=== PATIENT | male | born 1965 | race Caucasian/White ===

== ENCOUNTER 2018-04-11 16:31 | Emergency (ER) | payer MEDICARE ==
[2018-04-11 16:48] VITALS: BP 131/79
--- NOTE | 2018-04-11 17:23 | EDM.PDOC ---
ED HPI GENERAL MEDICAL PROBLEM - General Chief Complaint: Fever Stated Complaint: ILLNESS Time Seen by Provider: 04/11/18 17:00 Source of Information: Reports: Patient, Family History Limitations: Reports: No Limitations - History of Present Illness INITIAL COMMENTS - FREE TEXT/NARRATIVE: 52-year-old male undergoing chemotherapy for metastatic pancreatic cancer, was told to be checked if his temperature however rises to over 100.4. He feels completely fine, however he had 2 temperature tests this afternoon that without 100.4 and 100.5. He took some Advil at 3:00 and decided to come in and get checked. He has no cold symptoms, shortness of breath, cough, nausea vomiting, rashes, dysuria or any physical symptoms of infection. He is due for another round of chemotherapy in 2 days. Onset: Unknown/Unsure - Related Data Allergies Allergy/AdvReac Type Severity Reaction Status Date / Time adhesive Allergy Intermediate Rash Verified 04/11/18 16:56 ciprofloxacin [From Cipro] Allergy Rash Verified 04/11/18 16:56 levofloxacin [From Levaquin] Allergy Rash Verified 04/11/18 16:56 oxycodone HCl [From Tylox] Allergy Rash Verified 04/11/18 16:56 Home Meds: Home Meds Atenolol [Tenormin] 50 mg PO DAILY 02/04/13 [History] Cyclobenzaprine HCl [Flexeril] 20 mg PO BEDTIME 02/04/13 [History] Gabapentin [Neurontin] 300 mg PO BID 01/24/18 [History] Ondansetron [Zofran ODT] 4 mg PO Q4H PRN #12 tab.dis 01/25/18 [Rx] Sennosides/Docusate Sodium [Senna-S] 1 each PO BID #60 tablet 01/25/18 [Rx] Loperamide [Imodium] 4 mg PO Q6HR 02/21/18 [History] Prochlorperazine Maleate [Compazine] 10 mg PO Q6H PRN 02/21/18 [History] Loratadine [Claritin] 10 mg PO BEDTIME 03/06/18 [History] Melatonin 20 mg PO BEDTIME 03/06/18 [History] Warfarin [Coumadin] 2.5 mg PO DAILY 03/06/18 [History] Hyoscyamine [Hyomax-SL] 0.125 mg SL Q4H PRN #20 tab.sl 03/08/18 [Rx] Lactobacillus Acidophilus [Acidophilus Lactobacilli] 1 each PO BID #60 capsule 03/08/18 [Rx] Hyoscyamine Sulfate 1 tab PO DAILY 03/12/18 [History] L Acidophil/B Lactis/B Longum [Florajen3] 1 tab PO DAILY 03/12/18 [History] HYDROmorphone [Dilaudid] 8 mg PO Q3H PRN #200 tablet 03/15/18 [Rx] fentaNYL [Duragesic] 12 mcg TD Q72H #5 patch 03/15/18 [Rx] fentaNYL [Duragesic] 25 mg TRDERM Q72H #5 patch.td72 03/15/18 [Rx] Past Medical History HEENT History: Reports: None Cardiovascular History: Reports: Hypertension Gastrointestinal History: Reports: None Other Gastrointestinal History: cancer pancreas and liver, new mass in R small bowel Musculoskeletal History: Reports: Osteoarthritis Neurological History: Reports: Concussion Other Neuro History: TBI Psychiatric History: Reports: Depression Hematologic History: Reports: Anticoagulation Therapy, Blood Transfusion(s) Immunologic History: Reports: Other (See Below) Other Immunologic History: Pancreatic CA with mets. chemo treatment Oncologic (Cancer) History: Reports: Liver, Metastatic, Pancreatic Other Oncologic History: small bowel Dermatologic History: Reports: Other (See Below) Other Dermatologic History: new rash ? from fentanyl patches - Past Surgical History HEENT Surgical History: Reports: Other (See Below) Other HEENT Surgeries/Procedures: metal taken out of eye, deviated septum GI Surgical History: Reports: Hernia, Abdominal, Other (See Below) Other GI Surgeries/Procedures: EXPLORATORY LAP 10 YEARS AGO, SPLENECTOMY AT THAT TIME ALSO Neurological Surgical History: Reports: Spinal Fusion Musculoskeletal Surgical History: Reports: Other (See Below) Other Musculoskeletal Surgeries/Procedures:: RODS IN LOW BACK AND HARDWARE IN RIGHT ANKLE Social & Family History - Family History Family Medical History: Noncontributory - Tobacco Use Smoking Status *Q: Never Smoker Second Hand Smoke Exposure: No - Caffeine Use Caffeine Use: Reports: Soda - Recreational Drug Use Recreational Drug Use: No - Living Situation & Occupation Living situation: Reports: , with Family Occupation: Disabled ED ROS GENERAL - Review of Systems Review Of Systems: See Below Constitutional: Reports: Fever. Denies: Chills, Malaise, Decreased Appetite HEENT: Reports: No Symptoms. Denies: Rhinitis, Throat Pain Respiratory: Denies: Shortness of Breath, Cough GI/Abdominal: Denies: Abdominal Pain, Nausea, Vomiting Skin: Reports: No Symptoms Neurological: Denies: Headache ED EXAM, GENERAL - Physical Exam Exam: See Below Exam Limited By: No Limitations General Appearance: Alert, No Apparent Distress Throat/Mouth: Normal Inspection Head: Atraumatic Neck: No: Lymphadenopathy (R), Lymphadenopathy (L) Respiratory/Chest: No Respiratory Distress, Lungs Clear Cardiovascular: Regular Rate, Rhythm Neurological: Alert, Oriented Psychiatric: Normal Affect, Normal Mood Skin Exam: Warm, Dry Course - Vital Signs Last Recorded V/S: Last Vital Signs Temp 98.4 F 04/11/18 17:03 Pulse 67 04/11/18 17:03 Resp 16 04/11/18 17:03 BP 131/79 04/11/18 17:03 Pulse Ox 98 04/11/18 17:03 - Re-Assessments/Exams Free Text/Narrative Re-Assessment/Exam: 04/12/18 17:38 No evidence of infection, temp is normal at this time. No workup needed Departure - Departure Time of Disposition: 17:54 Disposition: Home, Self-Care 01 Condition: Good Clinical Impression: Pancreatic cancer Qualifiers: Pancreatic malignancy location: unspecified Qualified Code(s): C25.9 - Malignant neoplasm of pancreas, unspecified Fever Qualifiers: Encounter type: initial encounter - Discharge Information Instructions: Fever, Adult, [id number] Referrals: Hema Mcnally MD [Primary Care Provider] - Forms: ED Department Discharge Care Plan Goals: Continue current medications and temperature monitoring. Return at any time if you develop symptoms of illness or persistent fever.
== END 2018-04-11 17:30 | disposition home or self-care (01) ==
LOC: JP.ED 16:31
DX: C25.9 Malignant neoplasm of pancreas, unspecified (principal); R50.81 Fever presenting with conditions classified elsewhere; I10 Essential (primary) hypertension; F32.9 Major depressive disorder, single episode, unspecified; Z88.1 Allergy status to other antibiotic agents; Z88.5 Allergy status to narcotic agent; Z88.8 Allergy status to other drugs, medicaments and biological substances; Z79.899 Other long term (current) drug therapy
CPT/HCPCS: 99282; 99283

== ENCOUNTER 2018-04-12 21:06 | Emergency (ER) | payer MEDICARE ==
[2018-04-12 21:33] VITALS: BP 131/70
--- NOTE | 2018-04-12 21:56 | EDM.PDOC ---
ED HPI GENERAL MEDICAL PROBLEM - General Chief Complaint: Fever Stated Complaint: FEVER Time Seen by Provider: 04/12/18 21:40 Source of Information: Reports: Patient History Limitations: Reports: No Limitations - History of Present Illness INITIAL COMMENTS - FREE TEXT/NARRATIVE: 52-year-old male concerned about a fever. He is getting chemotherapy tomorrow. He has been checking his temperature at home and a few times it is measured 100- 100.5, most of the times normal. He has no symptoms. He just wanted to confirm he did not have a temperature. Onset: Unknown/Unsure - Related Data Allergies Allergy/AdvReac Type Severity Reaction Status Date / Time adhesive Allergy Intermediate Rash Verified 04/12/18 21:30 ciprofloxacin [From Cipro] Allergy Rash Verified 04/12/18 21:30 levofloxacin [From Levaquin] Allergy Rash Verified 04/12/18 21:30 oxycodone HCl [From Tylox] Allergy Rash Verified 04/12/18 21:30 Home Meds: Home Meds Atenolol [Tenormin] 50 mg PO DAILY 02/04/13 [History] Cyclobenzaprine HCl [Flexeril] 20 mg PO BEDTIME 02/04/13 [History] Gabapentin [Neurontin] 300 mg PO BID 01/24/18 [History] Loperamide [Imodium] 4 mg PO Q6HR 02/21/18 [History] Loratadine [Claritin] 10 mg PO BEDTIME 03/06/18 [History] Melatonin 20 mg PO BEDTIME 03/06/18 [History] Warfarin [Coumadin] 2.5 mg PO DAILY 03/06/18 [History] Hyoscyamine [Hyomax-SL] 0.125 mg SL Q4H PRN #20 tab.sl 03/08/18 [Rx] Lactobacillus Acidophilus [Acidophilus Lactobacilli] 1 each PO BID #60 capsule 03/08/18 [Rx] Hyoscyamine Sulfate 1 tab PO DAILY 03/12/18 [History] HYDROmorphone [Dilaudid] 8 mg PO Q3H PRN #200 tablet 03/15/18 [Rx] fentaNYL [Duragesic] 12 mcg TD Q72H #5 patch 03/15/18 [Rx] fentaNYL [Duragesic] 25 mg TRDERM Q72H #5 patch.td72 03/15/18 [Rx] Past Medical History HEENT History: Reports: None Cardiovascular History: Reports: Hypertension Gastrointestinal History: Reports: None Other Gastrointestinal History: cancer pancreas and liver, new mass in R small bowel Musculoskeletal History: Reports: Osteoarthritis Neurological History: Reports: Concussion Other Neuro History: TBI Psychiatric History: Reports: Depression Hematologic History: Reports: Anticoagulation Therapy, Blood Transfusion(s) Immunologic History: Reports: Other (See Below) Other Immunologic History: Pancreatic CA with mets. chemo treatment Oncologic (Cancer) History: Reports: Liver, Metastatic, Pancreatic Other Oncologic History: small bowel Dermatologic History: Reports: Other (See Below) Other Dermatologic History: new rash ? from fentanyl patches - Past Surgical History HEENT Surgical History: Reports: Other (See Below) Other HEENT Surgeries/Procedures: metal taken out of eye, deviated septum GI Surgical History: Reports: Hernia, Abdominal, Other (See Below) Other GI Surgeries/Procedures: EXPLORATORY LAP 10 YEARS AGO, SPLENECTOMY AT THAT TIME ALSO Neurological Surgical History: Reports: Spinal Fusion Musculoskeletal Surgical History: Reports: Other (See Below) Other Musculoskeletal Surgeries/Procedures:: RODS IN LOW BACK AND HARDWARE IN RIGHT ANKLE Social & Family History - Family History Family Medical History: Noncontributory - Tobacco Use Smoking Status *Q: Never Smoker Second Hand Smoke Exposure: No - Caffeine Use Caffeine Use: Reports: Soda - Recreational Drug Use Recreational Drug Use: No - Living Situation & Occupation Living situation: Reports: , with Family Occupation: Disabled ED ROS GENERAL - Review of Systems Review Of Systems: See Below Constitutional: Reports: Fever. Denies: Chills, Malaise, Decreased Appetite Respiratory: Denies: Shortness of Breath, Cough Cardiovascular: Denies: Chest Pain GI/Abdominal: Denies: Abdominal Pain, Nausea, Vomiting Skin: Denies: Rash Neurological: Reports: No Symptoms Psychiatric: Reports: Anxiety ED EXAM, GENERAL - Physical Exam Exam: See Below Exam Limited By: No Limitations General Appearance: Alert, No Apparent Distress Throat/Mouth: Normal Inspection Respiratory/Chest: No Respiratory Distress, Lungs Clear GI/Abdominal: Non-Tender Neurological: Alert, Oriented Psychiatric: Normal Affect, Normal Mood Skin Exam: Warm, Dry Course - Vital Signs Last Recorded V/S: Last Vital Signs Temp 97.2 F 04/12/18 21:34 Pulse 72 04/12/18 21:34 Resp 18 04/12/18 21:34 BP 131/70 04/12/18 21:34 Pulse Ox 100 04/12/18 21:34 - Re-Assessments/Exams Free Text/Narrative Re-Assessment/Exam: 04/13/18 01:01 Patient was reassured that at this time he is not running a temperature and he has no symptoms. No treatment or workup is needed and he can go to get his chemotherapy tomorrow morning as planned. Departure - Departure Time of Disposition: 22:00 Disposition: Home, Self-Care 01 Condition: Good Clinical Impression: Pancreatic carcinoma metastatic to liver - Discharge Information Instructions: Fever, Adult, [id number] Referrals: Hema Mcnally MD [Primary Care Provider] - Forms: ED Department Discharge Care Plan Goals: Try to get rest tonight, recheck your temperature if you develop chills or illness, and return if reevaluation is needed. Otherwise keep your appointment tomorrow morning.
== END 2018-04-12 22:00 | disposition home or self-care (01) ==
LOC: JP.ED 21:06
DX: C25.9 Malignant neoplasm of pancreas, unspecified (principal); C78.7 Secondary malignant neoplasm of liver and intrahepatic bile duct; I10 Essential (primary) hypertension; Z88.1 Allergy status to other antibiotic agents; Z88.8 Allergy status to other drugs, medicaments and biological substances; Z79.899 Other long term (current) drug therapy; Z79.01 Long term (current) use of anticoagulants
CPT/HCPCS: 99283

== ENCOUNTER 2018-04-18 16:10 | Emergency (ER) | payer MEDICARE ==
--- NOTE | 2018-04-18 18:31 | EDM.PDOC ---
ED HPI GENERAL MEDICAL PROBLEM - General Chief Complaint: Genitourinary Problem Stated Complaint: PAIN CANCER PATIENT Time Seen by Provider: 04/18/18 18:20 Source of Information: Reports: Patient, Family, RN Notes Reviewed History Limitations: Reports: No Limitations - History of Present Illness INITIAL COMMENTS - FREE TEXT/NARRATIVE: 52-year-old gentleman presents emergency department today complaint of fever, he has a known history of pancreatic cancer currently undergoing chemotherapy, was at the infusion center today did develop a fever was sent to the emergency department for further evaluation. At this time he has no new complaints he does have a known history of abdominal pain has had intermittent testicular swelling does get nauseated with the testicular swelling. Right Scrotum Pain Score (Numeric/FACES): 10 - Related Data Allergies Allergy/AdvReac Type Severity Reaction Status Date / Time adhesive Allergy Intermediate Rash Verified 04/12/18 21:30 ciprofloxacin [From Cipro] Allergy Rash Verified 04/12/18 21:30 levofloxacin [From Levaquin] Allergy Rash Verified 04/12/18 21:30 oxycodone HCl [From Tylox] Allergy Rash Verified 04/12/18 21:30 Home Meds: Home Meds Atenolol [Tenormin] 50 mg PO DAILY 02/04/13 [History] Cyclobenzaprine HCl [Flexeril] 20 mg PO BEDTIME 02/04/13 [History] Gabapentin [Neurontin] 300 mg PO BID 01/24/18 [History] Loperamide [Imodium] 4 mg PO Q6HR 02/21/18 [History] Loratadine [Claritin] 10 mg PO BEDTIME 03/06/18 [History] Melatonin 20 mg PO BEDTIME 03/06/18 [History] Warfarin [Coumadin] 2.5 mg PO DAILY 03/06/18 [History] Hyoscyamine [Hyomax-SL] 0.125 mg SL Q4H PRN #20 tab.sl 03/08/18 [Rx] Lactobacillus Acidophilus [Acidophilus Lactobacilli] 1 each PO BID #60 capsule 03/08/18 [Rx] Hyoscyamine Sulfate 1 tab PO DAILY 03/12/18 [History] HYDROmorphone [Dilaudid] 8 mg PO Q3H PRN #200 tablet 03/15/18 [Rx] fentaNYL [Duragesic] 12 mcg TD Q72H #5 patch 03/15/18 [Rx] fentaNYL [Duragesic] 25 mg TRDERM Q72H #5 patch.td72 03/15/18 [Rx] Past Medical History Cardiovascular History: Reports: Hypertension Other Gastrointestinal History: cancer pancreas and liver, new mass in R small bowel Musculoskeletal History: Reports: Osteoarthritis Neurological History: Reports: Concussion Other Neuro History: TBI Psychiatric History: Reports: Depression Hematologic History: Reports: Anticoagulation Therapy, Blood Transfusion(s) Immunologic History: Reports: Other (See Below) Other Immunologic History: Pancreatic CA with mets. chemo treatment Oncologic (Cancer) History: Reports: Liver, Metastatic, Pancreatic Other Oncologic History: small bowel Dermatologic History: Reports: Other (See Below) Other Dermatologic History: new rash ? from fentanyl patches - Infectious Disease History Infectious Disease History: Reports: Chicken Pox - Past Surgical History HEENT Surgical History: Reports: Other (See Below) Other HEENT Surgeries/Procedures: metal taken out of eye, deviated septum GI Surgical History: Reports: Hernia, Abdominal, Other (See Below) Other GI Surgeries/Procedures: EXPLORATORY LAP 10 YEARS AGO, SPLENECTOMY AT THAT TIME ALSO Neurological Surgical History: Reports: Spinal Fusion Musculoskeletal Surgical History: Reports: Other (See Below) Other Musculoskeletal Surgeries/Procedures:: RODS IN LOW BACK AND HARDWARE IN RIGHT ANKLE Social & Family History - Family History Family Medical History: Noncontributory - Tobacco Use Smoking Status *Q: Unknown Ever Smoked - Caffeine Use Caffeine Use: Reports: Soda - Living Situation & Occupation Living situation: Reports: , with Family Occupation: Disabled ED ROS GENERAL - Review of Systems Review Of Systems: See Below Constitutional: Reports: Fever HEENT: Reports: No Symptoms Respiratory: Reports: No Symptoms Cardiovascular: Reports: No Symptoms GI/Abdominal: Reports: Abdominal Pain : Reports: Other (Testicular swelling not new) Musculoskeletal: Reports: No Symptoms Skin: Reports: No Symptoms Neurological: Reports: No Symptoms ED EXAM, GENERAL - Physical Exam Exam: See Below Free Text/Narrative:: General: Male, ill-appearing but not in any distress, alert and oriented x3 HEENT: head is atraumatic normocephalic, eyes pupils equal round reactive to light, sclera clear no conjunctivitis appreciated. Ears tympanic membranes clear and [place]uayo landmarks and light reflex are present bilaterally canals are clear. Nose no septal deviation, nares are clear, no blood present. Mouth mucosa is moist and pink no erythema or exudate noted in soft palate, tongue is midline uvula is midline, dentition is intact. Neck: Supple no thyromegaly no tracheal deviation. Nodes: Cervical nodes subclavicular nodes nontender no palpable lymphadenopathy noted. Lungs: clear to auscultation bilaterally with symmetrical respirations, no adventitious noise appreciated. CV: Regular rate and rhythm S1 and S2 appreciated no murmurs rubs or gallops noted. Abdomen: Soft, nontender, no palpable masses or organomegaly appreciated, no distention no guarding bowel sounds are present, Genitals circumcised male I do not Appreciate any lesions testicular, testicles appear to be be normal size, nontender to the touch:. Neuro: GS 15 Skin: Warm and dry, intact Extremities: No lower extremity edema appreciated, Course - Vital Signs Last Recorded V/S: Last Vital Signs Temp 99.0 F 04/18/18 17:01 Pulse 62 04/18/18 17:01 Resp 16 04/18/18 17:01 BP 126/79 04/18/18 17:01 Pulse Ox 97 04/18/18 17:01 - Orders/Labs/Meds Labs: Laboratory Tests 04/18/18 04/18/18 04/18/18 Range/Units 18:42 18:42 18:42 WBC 2.7 L (4.5-11.0) K/uL RBC 3.44 L (4.30-5.90) M/uL Hgb 10.3 L D (12.0-15.0) g/dL Hct 31.4 L (40.0-54.0) % MCV 91 (80-98) fL MCH 30 (27-31) pg MCHC 33 (32-36) % Plt Count 214 (150-400) K/uL Neut % (Auto) 48 (36-66) % Lymph % (Auto) 37 (24-44) % [place] % (Auto) 9 H (2-6) % Eos % (Auto) 5 H (2-4) % Baso % (Auto) 0 (0-1) % Sodium 132 L (140-148) mmol/L Potassium 4.1 (3.6-5.2) mmol/L Chloride 97 L (100-108) mmol/L Carbon Dioxide 27 (21-32) mmol/L Anion Gap 12.1 (5.0-14.0) mmol/L BUN 14 (7-18) mg/dL Creatinine 0.8 (0.8-1.3) mg/dL Est Cr Clr Drug Dosing 95.26 mL/min Estimated GFR (MDRD) > 60 (>60) Glucose 166 H (74-106) mg/dL Lactic Acid 1.3 (0.4-2.0) mmol/L Calcium 8.5 (8.5-10.1) mg/dL Total Bilirubin 1.0 (0.2-1.0) mg/dL AST 23 (15-37) U/L ALT 24 (12-78) U/L Alkaline Phosphatase 253 H (46-116) U/L Total Protein 6.5 (6.4-8.2) g/dL Albumin 3.0 L (3.4-5.0) g/dL Globulin 3.5 (2.3-3.5) g/dL Albumin/Globulin Ratio 0.9 L (1.2-2.2) Departure - Departure Time of Disposition: 20:30 Disposition: Home, Self-Care 01 Condition: Poor Clinical Impression: Post chemo evaluation - Discharge Information Referrals: Hema Mcnally MD [Primary Care Provider] - Forms: ED Department Discharge Additional Instructions: Continue monitoring her temperature, call return to the emergency department worsening of symptoms keep your regular follow-up appointments - Assessment/Plan Plan: Assessment Acuity = acute Site and laterality = fever complicated in a patient with known history of pancreatic cancer on chemotherapy Etiology = unknown etiology Manifestations = none Location of injury = Home Lab values = WBC low at 2.7 consistent with a leukopenia 48% neutrophils hemoglobin low at 10.3 consistent normochromic anemia sodium low at 132 consistent hyponatremia remainder lab work is unremarkable influenza was negative Plan I did review lab work with him elected to do watchful waiting at this time he is remained afebrile while in the emergency department plan is discharge home he 'll take his temperature at home certainly any fevers or new development of symptoms he will return to the emergency department for reevaluation This note was dictated using [employer] recognition software please call with any questions on syntax or grammar.
[2018-04-18 20:40] VITALS: BP 136/79
== END 2018-04-18 20:40 | disposition home or self-care (01) ==
LOC: JP.ED 16:10
DX: R50.2 Drug induced fever (principal); T45.1X5A Adverse effect of antineoplastic and immunosuppressive drugs, initial encounter; C22.8 Malignant neoplasm of liver, primary, unspecified as to type; C78.89 Secondary malignant neoplasm of other digestive organs; I10 Essential (primary) hypertension; F32.9 Major depressive disorder, single episode, unspecified; Z88.8 Allergy status to other drugs, medicaments and biological substances; Z88.1 Allergy status to other antibiotic agents; Z88.5 Allergy status to narcotic agent; Z79.899 Other long term (current) drug therapy
CPT/HCPCS: 36415; 80053; 83605; 85025; 87804; 87804-59; 99284

== ENCOUNTER 2018-05-03 22:09 | Emergency (ER) | payer MEDICARE ==
[2018-05-03 22:30] VITALS: BP 118/77
--- NOTE | 2018-05-03 22:42 | EDM.PDOC ---
ED HPI GENERAL MEDICAL PROBLEM - General Chief Complaint: Genitourinary Problem Stated Complaint: BLOOD IN URINE Time Seen by Provider: 05/03/18 22:30 Source of Information: Reports: Patient History Limitations: Reports: No Limitations - History of Present Illness INITIAL COMMENTS - FREE TEXT/NARRATIVE: 52-year-old male with metastatic liver and pancreatic cancer was down at [facility] recently and was found that his chemotherapy regimen was not helping. They changed him to a different combination. Wednesday he checked his INR and it was "off the charts", held his Coumadin through the weekend and recheck to yesterday and it was 2.5. He had his normal dose of Coumadin yesterday and today. Tonight he has developed painless hematuria. He is unaware of any metastatic disease in his kidneys or bladder. He has no dysuria, fevers or chills. Onset: Sudden Duration: Hour(s): (Last couple hours) Associated Symptoms: Reports: Other (Chronic abdominal pain). Denies: Fever/ Chills - Related Data Allergies Allergy/AdvReac Type Severity Reaction Status Date / Time adhesive Allergy Intermediate Rash Verified 05/03/18 22:25 ciprofloxacin [From Cipro] Allergy Rash Verified 05/03/18 22:25 levofloxacin [From Levaquin] Allergy Rash Verified 05/03/18 22:25 oxycodone HCl [From Tylox] Allergy Rash Verified 05/03/18 22:25 Home Meds: Home Meds Atenolol [Tenormin] 50 mg PO DAILY 02/04/13 [History] Cyclobenzaprine HCl [Flexeril] 20 mg PO BEDTIME 02/04/13 [History] Gabapentin [Neurontin] 300 mg PO BID 01/24/18 [History] Loperamide [Imodium] 4 mg PO Q6HR 02/21/18 [History] Loratadine [Claritin] 10 mg PO BEDTIME 03/06/18 [History] Melatonin 20 mg PO BEDTIME 03/06/18 [History] Warfarin [Coumadin] 2.5 mg PO DAILY 03/06/18 [History] Hyoscyamine [Hyomax-SL] 0.125 mg SL Q4H PRN #20 tab.sl 03/08/18 [Rx] Lactobacillus Acidophilus [Acidophilus Lactobacilli] 1 each PO BID #60 capsule 03/08/18 [Rx] Hyoscyamine Sulfate 1 tab PO DAILY 03/12/18 [History] HYDROmorphone [Dilaudid] 8 mg PO Q3H PRN #200 tablet 03/15/18 [Rx] fentaNYL [Duragesic] 12 mcg TD Q72H #5 patch 03/15/18 [Rx] fentaNYL [Duragesic] 25 mg TRDERM Q72H #5 patch.td72 03/15/18 [Rx] Past Medical History HEENT History: Reports: None Cardiovascular History: Reports: Hypertension Gastrointestinal History: Reports: None Other Gastrointestinal History: cancer pancreas and liver, new mass in R small bowel Musculoskeletal History: Reports: Osteoarthritis Neurological History: Reports: Concussion Other Neuro History: TBI Psychiatric History: Reports: Depression Hematologic History: Reports: Anticoagulation Therapy, Blood Transfusion(s) Immunologic History: Reports: Other (See Below) Other Immunologic History: Pancreatic CA with mets. chemo treatment Oncologic (Cancer) History: Reports: Liver, Metastatic, Pancreatic Other Oncologic History: small bowel Dermatologic History: Reports: Other (See Below) Other Dermatologic History: new rash ? from fentanyl patches - Infectious Disease History Infectious Disease History: Reports: Chicken Pox - Past Surgical History HEENT Surgical History: Reports: Other (See Below) Other HEENT Surgeries/Procedures: metal taken out of eye, deviated septum GI Surgical History: Reports: Hernia, Abdominal, Other (See Below) Other GI Surgeries/Procedures: EXPLORATORY LAP 10 YEARS AGO, SPLENECTOMY AT THAT TIME ALSO Neurological Surgical History: Reports: Spinal Fusion Musculoskeletal Surgical History: Reports: Other (See Below) Other Musculoskeletal Surgeries/Procedures:: RODS IN LOW BACK AND HARDWARE IN RIGHT ANKLE Social & Family History - Family History Family Medical History: Noncontributory - Tobacco Use Smoking Status *Q: Never Smoker - Caffeine Use Caffeine Use: Reports: None - Recreational Drug Use Recreational Drug Use: No - Living Situation & Occupation Living situation: Reports: , with Family Occupation: Disabled ED ROS GENERAL - Review of Systems Review Of Systems: See Below Constitutional: Denies: Fever, Chills HEENT: Reports: Other (Chronic hoarse voice from chemotherapy) Respiratory: Denies: Shortness of Breath Cardiovascular: Denies: Chest Pain GI/Abdominal: Reports: Abdominal Pain. Denies: Nausea, Vomiting : Denies: Flank Pain, Urinary Retention Skin: Reports: No Symptoms Neurological: Denies: Headache ED EXAM, RENAL/ - Physical Exam Exam: See Below Exam Limited By: No Limitations General Appearance: Alert, No Apparent Distress Head: Atraumatic Respiratory/Chest: No Respiratory Distress, Lungs Clear Cardiovascular: Regular Rate, Rhythm Neurological: Alert, Oriented Skin Exam: Warm, Dry Course - Vital Signs Last Recorded V/S: Last Vital Signs Temp 97.7 F 05/03/18 22:28 Pulse 90 05/03/18 22:28 Resp 16 05/03/18 22:28 BP 118/77 05/03/18 22:28 Pulse Ox 98 05/03/18 22:28 - Orders/Labs/Meds Orders: Active Orders 24 hr Category Date Time Status CULTURE URINE [RM] Stat Lab 05/03/18 23:29 Received Labs: Laboratory Tests 05/03/18 05/03/18 05/03/18 Range/Units 22:49 22:49 23:00 WBC 2.5 L (4.5-11.0) K/uL RBC 2.95 L (4.30-5.90) M/uL Hgb 8.8 L (12.0-15.0) g/dL Hct 27.7 L (40.0-54.0) % MCV 94 (80-98) fL MCH 30 (27-31) pg MCHC 32 (32-36) % Plt Count 254 (150-400) K/uL Neut % (Auto) 64 (36-66) % Lymph % (Auto) 32 (24-44) % [place] % (Auto) 2 (2-6) % Eos % (Auto) 1 L (2-4) % Baso % (Auto) 1 (0-1) % PT 24.2 H (9.5-12.0) sec INR 2.31 H D (0.80-1.20) Urine Color Brown Urine Appearance Turbid Urine pH 6.0 (4.5-8.0) Ur Specific [place] 1.020 (1.008-1.030) Urine Protein 100 H (NEGATIVE) mg/dL Urine Glucose (UA) Normal (NEGATIVE) mg/dL Urine Ketones Negative (NEGATIVE) mg/dL Urine Occult Blood Large (NEGATIVE) Urine Nitrite Positive H (NEGAITVE) Urine Bilirubin Negative (NEGATIVE) Urine Urobilinogen Normal (NORMAL) mg/dL Ur Leukocyte Esterase Moderate (NEGATIVE) Urine RBC Packed H (0-5) Urine WBC 5-10 H (0-5) Ur Epithelial Cells Rare Amorphous Sediment Not seen Urine Bacteria Moderate Urine Mucus Not seen - Re-Assessments/Exams Free Text/Narrative Re-Assessment/Exam: 05/03/18 22:42 An INR and CBC were obtained. 05/03/18 23:30 INR is 2.3, hemoglobin is only 8.8 at this time, it was 10.3 3 weeks ago. This is likely an effect of the chemotherapy. His urine was positive for infection, nitrite positive with moderate bacteria and WBCs. Also packed RBCs. A urine culture was initiated and he was placed on Macrobid 100 mg twice daily and should recheck if his bleeding continues for the next 2-3 days. Departure - Departure Time of Disposition: 23:48 Disposition: Home, Self-Care 01 Condition: Fair Clinical Impression: UTI, Urinary tract infectious disease, Hematuria syndrome Anemia Qualifiers: Anemia type: other cause - Discharge Information Instructions: Urinary Tract Infection, Adult Referrals: Hema Mcnally MD [Primary Care Provider] - Forms: ED Department Discharge Care Plan Goals: Take antibiotic twice daily as prescribed and continue your other medications. Recheck in 2-3 days if hematuria persists, or return sooner if worsening. - My Orders Last 24 Hours: My Active Orders 05/03/18 23:29 CULTURE URINE [RM] Stat - Assessment/Plan Last 24 Hours: My Active Orders 05/03/18 23:29 CULTURE URINE [RM] Stat
== END 2018-05-03 23:45 | disposition home or self-care (01) ==
LOC: JP.ED 22:09
DX: N39.0 Urinary tract infection, site not specified (principal); I10 Essential (primary) hypertension; Z88.8 Allergy status to other drugs, medicaments and biological substances; Z88.1 Allergy status to other antibiotic agents; Z79.899 Other long term (current) drug therapy
CPT/HCPCS: 36415; 81001; 85025; 85610; 87086; 87088; 87186; 99283; 99284

== ENCOUNTER 2018-05-08 16:58 | Inpatient (IN) | payer MEDICARE ==
[2018-05-08] MEDS ORDERED: Sodium Chloride 0.9% 10 ML Syringe FLUSH PRN (17:46)
[2018-05-08] MEDS ORDERED: HYDROmorphone 1 MG/ML Syringe IVPUSH ONE ×3 (17:46→19:57)
[2018-05-08] MEDS ORDERED: Lactated Ringers 1,000 ML IV ONE (17:47)
--- NOTE | 2018-05-08 18:20 | EDM.PDOC ---
ED HPI GENERAL MEDICAL PROBLEM - General Chief Complaint: General Stated Complaint: CRAMPING,NOT EATING Time Seen by Provider: 05/08/18 18:00 Source of Information: Reports: Patient, Family History Limitations: Reports: No Limitations - History of Present Illness INITIAL COMMENTS - FREE TEXT/NARRATIVE: 52-year-old male with pancreatic cancer started a new chemotherapy regimen 2 weeks ago and it's making him very ill. He has stomach cramping, no appetite, and sores in his mouth preventing him from eating. According to his family he is "wasting away" and not eating or drinking anything, extremely weak. No fevers or chills, no nausea or vomiting. He had hematuria last week but after an antibiotic treatment it resolved. Onset: Gradual Duration: Day(s): (Symptoms have worsened over the last several days) Associated Symptoms: Reports: Loss of Appetite, Malaise, Weakness, Other ( Abdominal pain and cramping). Denies: Chest Pain, Cough, Fever/Chills, Headaches, Nausea/Vomiting, Shortness of Breath - Related Data Allergies Allergy/AdvReac Type Severity Reaction Status Date / Time adhesive Allergy Intermediate Rash Verified 05/08/18 19:32 ciprofloxacin [From Cipro] Allergy Rash Verified 05/08/18 19:32 levofloxacin [From Levaquin] Allergy Rash Verified 05/08/18 19:32 oxycodone HCl [From Tylox] Allergy Rash Verified 05/08/18 19:32 Home Meds: Home Meds Atenolol [Tenormin] 50 mg PO DAILY 02/04/13 [History] Cyclobenzaprine HCl [Flexeril] 20 mg PO BEDTIME 02/04/13 [History] Gabapentin [Neurontin] 300 mg PO BID 01/24/18 [History] Loperamide [Imodium] 4 mg PO Q6HR 02/21/18 [History] Loratadine [Claritin] 10 mg PO BEDTIME 03/06/18 [History] Melatonin 20 mg PO BEDTIME 03/06/18 [History] Warfarin [Coumadin] 2.5 mg PO DAILY 03/06/18 [History] Hyoscyamine [Hyomax-SL] 0.125 mg SL Q4H PRN #20 tab.sl 03/08/18 [Rx] Lactobacillus Acidophilus [Acidophilus Lactobacilli] 1 each PO BID #60 capsule 03/08/18 [Rx] Hyoscyamine Sulfate 1 tab PO DAILY 03/12/18 [History] HYDROmorphone [Dilaudid] 8 mg PO Q3H PRN #200 tablet 03/15/18 [Rx] fentaNYL [Duragesic] 12 mcg TD Q72H #5 patch 03/15/18 [Rx] fentaNYL [Duragesic] 25 mg TRDERM Q72H #5 patch.td72 03/15/18 [Rx] Nitrofurantoin Monohyd/M-Cryst [Macrobid 100 mg Capsule] 100 mg PO BID 05/08/18 [History] Past Medical History HEENT History: Reports: None Cardiovascular History: Reports: Hypertension Gastrointestinal History: Reports: None Other Gastrointestinal History: cancer pancreas and liver, new mass in R small bowel Musculoskeletal History: Reports: Osteoarthritis Neurological History: Reports: Concussion Other Neuro History: TBI Psychiatric History: Reports: Depression Hematologic History: Reports: Anticoagulation Therapy, Blood Transfusion(s) Immunologic History: Reports: Other (See Below) Other Immunologic History: Pancreatic CA with mets. chemo treatment Oncologic (Cancer) History: Reports: Liver, Metastatic, Pancreatic Other Oncologic History: small bowel Dermatologic History: Reports: Other (See Below) Other Dermatologic History: new rash ? from fentanyl patches - Infectious Disease History Infectious Disease History: Reports: Chicken Pox - Past Surgical History HEENT Surgical History: Reports: Other (See Below) Other HEENT Surgeries/Procedures: metal taken out of eye, deviated septum GI Surgical History: Reports: Hernia, Abdominal, Other (See Below) Other GI Surgeries/Procedures: EXPLORATORY LAP 10 YEARS AGO, SPLENECTOMY AT THAT TIME ALSO Neurological Surgical History: Reports: Spinal Fusion Musculoskeletal Surgical History: Reports: Other (See Below) Other Musculoskeletal Surgeries/Procedures:: RODS IN LOW BACK AND HARDWARE IN RIGHT ANKLE Social & Family History - Family History Family Medical History: Noncontributory - Tobacco Use Smoking Status *Q: Never Smoker - Caffeine Use Caffeine Use: Reports: None - Living Situation & Occupation Living situation: Reports: , with Family Occupation: Disabled ED ROS GENERAL - Review of Systems Review Of Systems: See Below Constitutional: Denies: Fever HEENT: Reports: Other (Significant ulcerations and mouth sores from the chemotherapy, very painful) Respiratory: Reports: Cough. Denies: Shortness of Breath Cardiovascular: Denies: Chest Pain GI/Abdominal: Reports: Abdominal Pain, Anorexia, Decreased Appetite, Difficulty Swallowing. Denies: Nausea, Vomiting : Reports: Hematuria (Hematuria has resolved, no urinary symptoms) Skin: Reports: Bruising (Tends to bruise easily) Neurological: Reports: Weakness. Denies: Headache Psychiatric: Reports: No Symptoms ED EXAM, GENERAL - Physical Exam Exam: See Below Exam Limited By: No Limitations General Appearance: Alert, No Apparent Distress (Patient appears very weak, uncomfortable but not distressed) Eye Exam: Bilateral Eye: EOMI (No jaundice) Throat/Mouth: Other (Diffuse shallow ulcerations on erythematous base, especially on the posterior pharynx and right buchal mucosa) Respiratory/Chest: No Respiratory Distress, Lungs Clear Cardiovascular: Regular Rate, Rhythm. No: Tachycardia GI/Abdominal: Tender (Diffusely tender to palpation, no focal tenderness or guarding. No distention) Extremities: No: Pedal Edema Neurological: Alert, Oriented Psychiatric: Depressed Mood, Flat Affect Skin Exam: Warm, Dry Course - Vital Signs Last Recorded V/S: Last Vital Signs Temp 99.1 F 05/08/18 17:20 Pulse 58 L 05/08/18 17:20 Resp 16 05/08/18 17:20 BP 103/62 05/08/18 17:20 Pulse Ox 100 05/08/18 17:20 - Orders/Labs/Meds Orders: Active Orders 24 hr Category Date Time Status RED BLOOD CELLS LP [BBK] Stat Lab 05/08/18 18:25 Results TYPE AND SCREEN [BBK] Stat Lab 05/08/18 18:25 Results Sodium Chloride 0.9% [Normal Saline] 1,000 ml Med 05/08/18 19:00 Active IV ASDIRECTED Sodium Chloride 0.9% [Saline Flush] Med 05/08/18 17:46 Active 10 ml FLUSH ASDIRECTED PRN Saline Lock Insert [OM.PC] Routine Oth 05/08/18 17:46 Ordered Transfuse Red Blood Cells [COMM] Urgent Oth 05/08/18 19:45 Ordered Medication Orders Sodium Chloride (Normal Saline) 1,000 mls @ 250 mls/hr IV ASDIRECTED HIGINIO Last Admin: 05/08/18 19:39 Dose: 250 mls/hr Sodium Chloride (Saline Flush) 10 ml FLUSH ASDIRECTED PRN PRN Reason: Keep Vein Open Last Admin: 05/08/18 18:00 Dose: 10 ml Labs: Laboratory Tests 05/08/18 05/08/18 05/08/18 Range/Units 18:25 18:26 18:26 WBC 0.9 L* (4.5-11.0) K/uL RBC 2.55 L (4.30-5.90) M/uL Hgb 7.5 L (12.0-15.0) g/dL Hct 23.7 L (40.0-54.0) % MCV 93 (80-98) fL MCH 29 (27-31) pg MCHC 32 (32-36) % Plt Count 117 L (150-400) K/uL Neut % (Auto) 39 (36-66) % Lymph % (Auto) 57 H (24-44) % [place] % (Auto) 1 L (2-6) % Eos % (Auto) 2 (2-4) % Baso % (Auto) 1 (0-1) % Sodium 135 L (140-148) mmol/L Potassium 4.4 (3.6-5.2) mmol/L Chloride 102 (100-108) mmol/L Carbon Dioxide 27 (21-32) mmol/L Anion Gap 10.4 (5.0-14.0) mmol/L BUN 16 (7-18) mg/dL Creatinine 0.8 (0.8-1.3) mg/dL Est Cr Clr Drug Dosing 90.33 mL/min Estimated GFR (MDRD) > 60 (>60) Glucose 110 H (74-106) mg/dL Calcium 8.3 L (8.5-10.1) mg/dL Total Bilirubin 1.2 H (0.2-1.0) mg/dL AST 39 H (15-37) U/L ALT 40 (12-78) U/L Alkaline Phosphatase 233 H (46-116) U/L Total Protein 5.7 L (6.4-8.2) g/dL Albumin 2.4 L (3.4-5.0) g/dL Globulin 3.3 (2.3-3.5) g/dL Albumin/Globulin Ratio 0.7 L (1.2-2.2) Urine Color Urine Appearance Urine pH (4.5-8.0) Ur Specific [place] (1.008-1.030) Urine Protein (NEGATIVE) mg/dL Urine Glucose (UA) (NEGATIVE) mg/dL Urine Ketones (NEGATIVE) mg/dL Urine Occult Blood (NEGATIVE) Urine Nitrite (NEGAITVE) Urine Bilirubin (NEGATIVE) Urine Urobilinogen (NORMAL) mg/dL Ur Leukocyte Esterase (NEGATIVE) Urine RBC (0-5) Urine WBC (0-5) Ur Epithelial Cells Amorphous Sediment Urine Bacteria Urine Mucus Blood Type A POSITIVE Gel Antibody Screen Negative Crossmatch See Detail 05/08/18 Range/Units 19:04 WBC (4.5-11.0) K/uL RBC (4.30-5.90) M/uL Hgb (12.0-15.0) g/dL Hct (40.0-54.0) % MCV (80-98) fL MCH (27-31) pg MCHC (32-36) % Plt Count (150-400) K/uL Neut % (Auto) (36-66) % Lymph % (Auto) (24-44) % [place] % (Auto) (2-6) % Eos % (Auto) (2-4) % Baso % (Auto) (0-1) % Sodium (140-148) mmol/L Potassium (3.6-5.2) mmol/L Chloride (100-108) mmol/L Carbon Dioxide (21-32) mmol/L Anion Gap (5.0-14.0) mmol/L BUN (7-18) mg/dL Creatinine (0.8-1.3) mg/dL Est Cr Clr Drug Dosing mL/min Estimated GFR (MDRD) (>60) Glucose (74-106) mg/dL Calcium (8.5-10.1) mg/dL Total Bilirubin (0.2-1.0) mg/dL AST (15-37) U/L ALT (12-78) U/L Alkaline Phosphatase (46-116) U/L Total Protein (6.4-8.2) g/dL Albumin (3.4-5.0) g/dL Globulin (2.3-3.5) g/dL Albumin/Globulin Ratio (1.2-2.2) Urine Color Yellow Urine Appearance Cloudy Urine pH 5.0 (4.5-8.0) Ur Specific [place] 1.020 (1.008-1.030) Urine Protein 30 H (NEGATIVE) mg/dL Urine Glucose (UA) Normal (NEGATIVE) mg/dL Urine Ketones Negative (NEGATIVE) mg/dL Urine Occult Blood Large (NEGATIVE) Urine Nitrite Negative (NEGAITVE) Urine Bilirubin Negative (NEGATIVE) Urine Urobilinogen Normal (NORMAL) mg/dL Ur Leukocyte Esterase Small (NEGATIVE) Urine RBC 50-75 H (0-5) Urine WBC 5-10 H (0-5) Ur Epithelial Cells Rare Amorphous Sediment Not seen Urine Bacteria Not seen Urine Mucus Rare Blood Type Gel Antibody Screen Crossmatch Meds: Medications Generic Name Dose Route Start Last Admin Trade Name Freq PRN Reason Stop Dose Admin Sodium Chloride 1,000 mls @ 250 mls/hr 05/08/18 19:00 05/08/18 19:39 Normal Saline IV 250 mls/hr ASDIRECTED HIGINIO Administration Sodium Chloride 10 ml 05/08/18 17:46 05/08/18 18:00 Saline Flush FLUSH 10 ml ASDIRECTED PRN Administration Keep Vein Open Discontinued Medications Generic Name Dose Route Start Last Admin Trade Name Freq PRN Reason Stop Dose Admin Hydromorphone HCl 1 mg 05/08/18 17:46 05/08/18 18:00 Dilaudid IVPUSH 05/08/18 17:47 1 mg ONETIME ONE Administration Hydromorphone HCl 1 mg 05/08/18 19:42 05/08/18 20:26 Dilaudid IVPUSH 05/08/18 19:43 Not Given ONETIME ONE Hydromorphone HCl 2 mg 05/08/18 19:57 05/08/18 20:43 Dilaudid IVPUSH 05/08/18 19:58 2 mg ONETIME ONE Administration Lactated Ringer's 1,000 mls @ 1,000 mls/hr 05/08/18 17:47 05/08/18 18:01 Ringers, Lactated IV 05/08/18 18:46 1,000 mls/hr BOLUS ONE Administration - Re-Assessments/Exams Free Text/Narrative Re-Assessment/Exam: 05/08/18 18:19 Lactated Ringer solution was initially ordered by Dr. Romeo. CBC and CMP were added. 05/08/18 19:25 Fluids were continued. White count returned only 900 with 37% neutrophils, hemoglobin is now 7.5. This was discussed with the hospitalist and also oncology. A UA showed clearing of the infection which was MRSA but responsive to the antibiotic he was placed on. Recommendation was for admission, 1 unit of blood for the anemia and symptomatic treatment. He'll be admitted to the hospitalist service here in [place]. Departure - Departure Time of Disposition: 21:00 Disposition: Admitted As Inpatient 66 Condition: Fair Clinical Impression: Anemia associated with chemotherapy, Weakness, Dehydration - Discharge Information Referrals: Hema Mcnally MD [Primary Care Provider] - Forms: ED Department Discharge Care Plan Goals: Patient will be admitted to the hospitalist service for a blood transfusion, fluids and symptomatic treatment. - My Orders Last 24 Hours: My Active Orders 05/08/18 19:00 Sodium Chloride 0.9% [Normal Saline] 1,000 ml IV ASDIRECTED - Assessment/Plan Last 24 Hours: My Active Orders 05/08/18 19:00 Sodium Chloride 0.9% [Normal Saline] 1,000 ml IV ASDIRECTED
[2018-05-08] MEDS ORDERED: Sodium Chloride 0.9% 1,000 ML IV SCH (19:00)
[2018-05-08] MEDS ORDERED: Ondansetron 4 MG/2 ML SDV IVPUSH PRN (21:40)
[2018-05-08] MEDS ORDERED: Hyoscyamine 0.125 MG Tab.SL SL PRN (21:40)
[2018-05-08] MEDS ORDERED: Loperamide 2 MG Cap PO SCH (22:00)
[2018-05-08] MEDS: HYDROmorphone 1 MG/ML Syringe IVPUSH PRN (22:07)
[2018-05-08] MEDS ORDERED: Lidocaine 2% Viscous Solution 15 ML Cup ONE (22:10)
[2018-05-08] MEDS ORDERED: Aluminum Hydroxide/Magnesium Hydroxide/Simethicone Susp 30 ML Cup ONE (22:10)
[2018-05-08] MEDS: Nitrofurantoin Monohydrate/Macrocrystalline 100 MG Cap PO SCH (22:10)
[2018-05-08] MEDS ORDERED: diphenhydrAMINE 25 MG/10 ML CUP ONE (22:12)
--- NOTE | 2018-05-08 22:27 | PCM.HP ---
H&P History of Present Illness - General Date of Service: 05/08/18 Admit Problem/Dx: Admission Diagnosis/Problem Admission Diagnosis/Problem Anemia due to chemotherapy Source of Information: Patient, Family ( and Son) History Limitations: Reports: No Limitations - History of Present Illness Initial Comments - Free Text/Narative: Source of Information: Reports: Patient, Family History Limitations: Reports: No Limitations - History of Present Illness INITIAL COMMENTS - FREE TEXT/NARRATIVE: 52-year-old male with pancreatic cancer started a new chemotherapy regimen 2 weeks ago and it's making him very ill. He has stomach cramping, no appetite, and sores in his mouth preventing him from eating. According to his family he is "wasting away" and not eating or drinking anything, extremely weak. No fevers or chills, no nausea or vomiting. He had hematuria last week but after an antibiotic treatment it resolved. culture +MRSA Onset: Gradual Duration: Day(s): (Symptoms have worsened over the last several days) Associated Symptoms: Reports: Loss of Appetite, Malaise, Weakness, Other ( Abdominal pain and cramping). Denies: Chest Pain, Cough, Fever/Chills, Headaches, Nausea/Vomiting, Shortness of Breath Onset of Symptoms: Reports: Gradual Duration of Symptoms: Reports: Other (completed 2nd week of chemotherapy on Wednesday05/04/2018, mouth sores started on Wednesday.) Location: Reports: Generalized (weakness) Improves with: Reports: None Worsens with: Reports: Medication (chemotherapy) Context: Reports: Other (pancreatic cancer with mets., chemotherapy) Associated Symptoms: Reports: Loss of Appetite, Malaise, Nausea/Vomiting, Weakness, Other (35 pound wt loss since diagnosis with cancer.) - Related Data Allergies/Adverse Reactions: Allergies Allergy/AdvReac Type Severity Reaction Status Date / Time adhesive Allergy Intermediate Rash Verified 05/08/18 21:51 ciprofloxacin [From Cipro] Allergy Rash Verified 05/08/18 21:51 levofloxacin [From Levaquin] Allergy Rash Verified 05/08/18 21:51 oxycodone HCl [From Tylox] Allergy Rash Verified 05/08/18 21:51 Home Medications: Home Meds Atenolol [Tenormin] 50 mg PO DAILY 02/04/13 [History] Cyclobenzaprine HCl [Flexeril] 20 mg PO BEDTIME 02/04/13 [History] Gabapentin [Neurontin] 300 mg PO BID 01/24/18 [History] Loperamide [Imodium] 4 mg PO Q6HR PRN 02/21/18 [History] Loratadine [Claritin] 10 mg PO BEDTIME 03/06/18 [History] Melatonin 20 mg PO BEDTIME 03/06/18 [History] Warfarin [Coumadin] 2.5 mg PO DAILY 03/06/18 [History] Hyoscyamine [Hyomax-SL] 0.125 mg SL Q4H PRN #20 tab.sl 03/08/18 [Rx] Lactobacillus Acidophilus [Acidophilus Lactobacilli] 1 each PO BID #60 capsule 03/08/18 [Rx] Hyoscyamine Sulfate 1 tab PO DAILY 03/12/18 [History] HYDROmorphone [Dilaudid] 8 mg PO Q3H PRN #200 tablet 03/15/18 [Rx] fentaNYL [Duragesic] 12 mcg TD Q72H #5 patch 03/15/18 [Rx] fentaNYL [Duragesic] 25 mg TRDERM Q72H #5 patch.td72 03/15/18 [Rx] Nitrofurantoin Monohyd/M-Cryst [Macrobid 100 mg Capsule] 100 mg PO BID 05/08/18 [History] Past Medical History HEENT History: Reports: None Cardiovascular History: Reports: Hypertension Gastrointestinal History: Reports: None Other Gastrointestinal History: cancer pancreas and liver, new mass in R small bowel Musculoskeletal History: Reports: Osteoarthritis Neurological History: Reports: Concussion Other Neuro History: TBI Psychiatric History: Reports: Depression Hematologic History: Reports: Anticoagulation Therapy, Blood Transfusion(s) Immunologic History: Reports: Other (See Below) Other Immunologic History: Pancreatic CA with mets. chemo treatment Oncologic (Cancer) History: Reports: Liver, Metastatic, Pancreatic Other Oncologic History: small bowel Dermatologic History: Reports: Other (See Below) Other Dermatologic History: new rash ? from fentanyl patches - Infectious Disease History Infectious Disease History: Reports: Chicken Pox - Past Surgical History HEENT Surgical History: Reports: Other (See Below) Other HEENT Surgeries/Procedures: metal taken out of eye, deviated septum GI Surgical History: Reports: Hernia, Abdominal, Other (See Below) Other GI Surgeries/Procedures: EXPLORATORY LAP 10 YEARS AGO, SPLENECTOMY AT THAT TIME ALSO Neurological Surgical History: Reports: Spinal Fusion Musculoskeletal Surgical History: Reports: Other (See Below) Other Musculoskeletal Surgeries/Procedures:: RODS IN LOW BACK AND HARDWARE IN RIGHT ANKLE Social & Family History - Family History Family Medical History: Noncontributory - Tobacco Use Smoking Status *Q: Never Smoker - Caffeine Use Caffeine Use: Reports: None - Living Situation & Occupation Living situation: Reports: , with Family Occupation: Disabled H&P Review of Systems - Review of Systems: Review Of Systems: See Below General: Reports: Malaise, Weakness, Fatigue, Decreased Appetite, Weight Loss ( 35 pounds since cancer diagnosis) HEENT: Reports: Sore Throat (mouth sores since Wednesday05/06/2018) Pulmonary: Reports: No Symptoms Cardiovascular: Reports: No Symptoms Gastrointestinal: Reports: Abdominal Pain Genitourinary: Reports: Hematuria (recent uti with Macrobid treatment), Other ( report chronic right testicle and scrotum swelling due to cyst. has been evaluated, unable to anything at this time due to chemo and cancer) Musculoskeletal: Reports: Back Pain, Muscle Pain Skin: Reports: Pallor, Dryness, Wound (dry cracked hands and fingers), Change in Color Psychiatric: Reports: No Symptoms Neurological: Reports: No Symptoms Hematologic/Lymphatic: Reports: Anemia Exam - Exam Exam: See Below - Vital Signs Vital Signs: Last Vital Signs Temp 37.4 C 05/08/18 21:47 Pulse 60 05/08/18 21:47 Resp 16 05/08/18 21:47 BP 117/70 05/08/18 21:47 Pulse Ox 100 05/08/18 21:47 Weight: 60.5 kg - Exam Quality Assessment: DVT Prophylaxis General: Alert, Oriented, Cooperative, Mild Distress, Other (thin and pallor, neat and well groomed. ) HEENT: PERRLA, Hearing Intact, Mucosa Moist & [place], Nares Patent, Normal Nasal Septum, Posterior Pharynx Clear, Conjunctiva Clear, EOMI, EACs Clear, TMs Clear Neck: Supple, Trachea Midline, 2 Lungs: Clear to Auscultation, Normal Respiratory Effort Cardiovascular: Regular Rate, Regular Rhythm, Other (port noted to right upper chest) GI/Abdominal Exam: Tender (generalized abdominal pain to palpation.), Other ( hypoactive bowel sounds) (Male) Exam: Deferred Rectal (Males) Exam: Deferred Back Exam: Normal Inspection, Full Range of Motion Extremities: Normal Inspection, Normal Range of Motion, Non-Tender, No Pedal Edema Skin: Warm, Dry, Other (hands with dry cracked finger) Neurological: Cranial Nerves Intact, Reflexes Equal Bilateral, Strength Equal Bilateral Neuro Extensive - Mental Status: Alert, Oriented x3, Normal Mood/Affect, Memory Intact Psychiatric: Alert, Normal Affect, Normal Mood - Patient Data Lab Results Last 24 hrs: Laboratory Results - last 24 hr 05/08/18 05/08/18 05/08/18 Range/Units 18:25 18:26 18:26 WBC 0.9 L* (4.5-11.0) K/uL RBC 2.55 L (4.30-5.90) M/uL Hgb 7.5 L (12.0-15.0) g/dL Hct 23.7 L (40.0-54.0) % MCV 93 (80-98) fL MCH 29 (27-31) pg MCHC 32 (32-36) % Plt Count 117 L (150-400) K/uL Neut % (Auto) 39 (36-66) % Lymph % (Auto) 57 H (24-44) % [place] % (Auto) 1 L (2-6) % Eos % (Auto) 2 (2-4) % Baso % (Auto) 1 (0-1) % Sodium 135 L (140-148) mmol/L Potassium 4.4 (3.6-5.2) mmol/L Chloride 102 (100-108) mmol/L Carbon Dioxide 27 (21-32) mmol/L Anion Gap 10.4 (5.0-14.0) mmol/L BUN 16 (7-18) mg/dL Creatinine 0.8 (0.8-1.3) mg/dL Est Cr Clr Drug Dosing 90.33 mL/min Estimated GFR (MDRD) > 60 (>60) Glucose 110 H (74-106) mg/dL Calcium 8.3 L (8.5-10.1) mg/dL Total Bilirubin 1.2 H (0.2-1.0) mg/dL AST 39 H (15-37) U/L ALT 40 (12-78) U/L Alkaline Phosphatase 233 H (46-116) U/L Total Protein 5.7 L (6.4-8.2) g/dL Albumin 2.4 L (3.4-5.0) g/dL Globulin 3.3 (2.3-3.5) g/dL Albumin/Globulin Ratio 0.7 L (1.2-2.2) Urine Color Urine Appearance Urine pH (4.5-8.0) Ur Specific [place] (1.008-1.030) Urine Protein (NEGATIVE) mg/dL Urine Glucose (UA) (NEGATIVE) mg/dL Urine Ketones (NEGATIVE) mg/dL Urine Occult Blood (NEGATIVE) Urine Nitrite (NEGAITVE) Urine Bilirubin (NEGATIVE) Urine Urobilinogen (NORMAL) mg/dL Ur Leukocyte Esterase (NEGATIVE) Urine RBC (0-5) Urine WBC (0-5) Ur Epithelial Cells Amorphous Sediment Urine Bacteria Urine Mucus Blood Type A POSITIVE Gel Antibody Screen Negative Crossmatch See Detail 05/08/18 Range/Units 19:04 WBC (4.5-11.0) K/uL RBC (4.30-5.90) M/uL Hgb (12.0-15.0) g/dL Hct (40.0-54.0) % MCV (80-98) fL MCH (27-31) pg MCHC (32-36) % Plt Count (150-400) K/uL Neut % (Auto) (36-66) % Lymph % (Auto) (24-44) % [place] % (Auto) (2-6) % Eos % (Auto) (2-4) % Baso % (Auto) (0-1) % Sodium (140-148) mmol/L Potassium (3.6-5.2) mmol/L Chloride (100-108) mmol/L Carbon Dioxide (21-32) mmol/L Anion Gap (5.0-14.0) mmol/L BUN (7-18) mg/dL Creatinine (0.8-1.3) mg/dL Est Cr Clr Drug Dosing mL/min Estimated GFR (MDRD) (>60) Glucose (74-106) mg/dL Calcium (8.5-10.1) mg/dL Total Bilirubin (0.2-1.0) mg/dL AST (15-37) U/L ALT (12-78) U/L Alkaline Phosphatase (46-116) U/L Total Protein (6.4-8.2) g/dL Albumin (3.4-5.0) g/dL Globulin (2.3-3.5) g/dL Albumin/Globulin Ratio (1.2-2.2) Urine Color Yellow Urine Appearance Cloudy Urine pH 5.0 (4.5-8.0) Ur Specific [place] 1.020 (1.008-1.030) Urine Protein 30 H (NEGATIVE) mg/dL Urine Glucose (UA) Normal (NEGATIVE) mg/dL Urine Ketones Negative (NEGATIVE) mg/dL Urine Occult Blood Large (NEGATIVE) Urine Nitrite Negative (NEGAITVE) Urine Bilirubin Negative (NEGATIVE) Urine Urobilinogen Normal (NORMAL) mg/dL Ur Leukocyte Esterase Small (NEGATIVE) Urine RBC 50-75 H (0-5) Urine WBC 5-10 H (0-5) Ur Epithelial Cells Rare Amorphous Sediment Not seen Urine Bacteria Not seen Urine Mucus Rare Blood Type Gel Antibody Screen Crossmatch Result Diagrams: 05/08/18 18:26 05/08/18 18:26 - Problem List (1) Anemia associated with chemotherapy Status: Acute Priority: High Current Visit: Yes (2) Pancreatic carcinoma metastatic to liver SNOMED Code(s): 745325829, 115536647 ICD Code: C25.9 - MALIGNANT NEOPLASM OF PANCREAS, UNSPECIFIED; C78.7 - SECONDARY MALIG NEOPLASM OF LIVER AND INTRAHEPATIC BILE DUCT Status: Chronic Current Visit: No (3) Dehydration SNOMED Code(s): 64858944 ICD Code: E86.0 - DEHYDRATION Status: Acute Priority: High Current Visit: Yes (4) Weakness SNOMED Code(s): 82742764 ICD Code: R53.1 - WEAKNESS Status: Acute Priority: High Current Visit: Yes (5) Portal vein thrombosis SNOMED Code(s): 01273130 ICD Code: I81 - PORTAL VEIN THROMBOSIS Status: Chronic Priority: Medium Current Visit: No (6) Insomnia SNOMED Code(s): 098018041 ICD Code: G47.00 - INSOMNIA, UNSPECIFIED Status: Acute Current Visit: Yes Qualifiers: Insomnia type: unspecified Qualified Code(s): G47.00 - Insomnia, unspecified Problem List Initiated/Reviewed/Updated: Yes Orders Last 24hrs: Active Orders 24 hr Category Date Time Status Cardiac Monitoring [RC] .As Directed Care 05/08/18 21:40 Active Intake and Output [RC] QSHIFT Care 05/08/18 21:40 Active Notify Provider Vital Signs [RC] ASDIRECTED Care 05/08/18 21:40 Active Oxygen Therapy [RC] PRN Care 05/08/18 21:40 Active Pulse Oximetry [RC] CONTINUOUS Care 05/08/18 21:40 Active Up With Assistance [RC] ASDIRECTED Care 05/08/18 21:40 Active VTE/DVT Education [RC] Per Unit Routine Care 05/08/18 21:40 Active Vital Signs [RC] Q4H Care 05/08/18 21:40 Active Full Liquid Diet [DIET] Diet 05/08/18 Dinner Ordered BASIC METABOLIC PANEL,BMP [CHEM] AM Lab 05/09/18 05:11 Ordered CBC WITH AUTO DIFF [HEME] AM Lab 05/09/18 05:11 Ordered RED BLOOD CELLS LP [BBK] Stat Lab 05/08/18 18:25 Results TYPE AND SCREEN [BBK] Stat Lab 05/08/18 18:25 Results Atenolol [Tenormin] Med 05/09/18 09:00 Ordered 50 mg PO DAILY Cyclobenzaprine [Flexeril] Med 05/09/18 21:00 Active 20 mg PO BEDTIME Gabapentin [Neurontin] Med 05/08/18 21:40 Active 300 mg PO BID HYDROmorphone [Dilaudid] Med 05/08/18 21:40 Active 1 mg IVPUSH Q2H PRN HYDROmorphone [Dilaudid] Med 05/08/18 21:40 Active 8 mg PO Q3H PRN Hyoscyamine [Hyomax-SL] Med 05/08/18 21:40 Active 0.125 mg SL Q4H PRN Hyoscyamine [Hyomax-SL] Med 05/09/18 09:00 Ordered DOSE mg PO DAILY Lactated Ringers [Ringers, Lactated] 1,000 ml Med 05/08/18 21:40 Active IV ASDIRECTED Lactobacillus Acidophilus [Acidophilus Lactobacilli] Med 05/08/18 21:40 Ordered 1 each PO BID Lidocaine 2% [Xylocaine 2% Viscous] 30 ml Med 05/08/18 21:40 Ordered Alum Hydrox/Mag Hydrox/Simeth [Mag-Al Plus] 30 ml diphenhydrAMINE [Benadryl] 75 mg TOP Q4H Loperamide [Imodium] Med 05/08/18 22:00 Active 4 mg PO Q6HR Loratadine [Claritin] Med 05/08/18 21:40 Active 10 mg PO BEDTIME Melatonin [Melatonin] Med 05/09/18 21:00 Ordered 20 mg PO BEDTIME Nitrofurantoin [place]/Macrocryst [Macrobid] Med 05/08/18 21:40 Active 100 mg PO BID Ondansetron [Zofran] Med 05/08/18 21:40 Active 4 mg IVPUSH Q4H PRN Pantoprazole [ProTONIX IV] Med 05/09/18 09:00 Ordered 40 mg IV DAILY Sodium Chloride 0.9% [Saline Flush] Med 05/08/18 17:46 Active 10 ml FLUSH ASDIRECTED PRN Warfarin [Coumadin] Med 05/09/18 09:00 Ordered 2.5 mg PO DAILY fentaNYL [Duragesic] Med 05/10/18 21:00 Ordered 12 mcg TOP Q72H fentaNYL [Duragesic] Med 05/10/18 21:00 Ordered 25,000 mcg TRDERM Q72H Transfuse Red Blood Cells [COMM] Urgent Oth 05/08/18 19:45 Ordered Resuscitation Status Routine Resus Stat 05/08/18 20:47 Ordered Medication Orders Atenolol (Tenormin) 50 mg PO DAILY [facility] Lidocaine HCl 30 ml/ Al Hydroxide/Mg Hydroxide 30 ml/Diphenhydramine HCl 75 mg 0 ml TOP Q4H PRN PRN Reason: MOUTH CARE Cyclobenzaprine HCl (Flexeril) 20 mg PO BEDTIME [facility] Fentanyl (Duragesic) 25,000 mcg TRDERM Q72H HIGINIO Fentanyl (Duragesic) 12 mcg TOP Q72H HIGINIO Gabapentin (Neurontin) 300 mg PO BID [facility] Hydromorphone HCl (Dilaudid) 8 mg PO Q3H PRN PRN Reason: Pain (moderate 4-6) Hydromorphone HCl (Dilaudid) 1 mg IVPUSH Q2H PRN PRN Reason: Abdominal Pain Last Admin: 05/08/18 22:07 Dose: 1 mg Hyoscyamine (Hyomax-Sl) 0.125 mg SL Q4H PRN PRN Reason: Abdominal Pain Hyoscyamine (Hyomax-Sl) mg PO DAILY [facility] Lactated Ringer's (Ringers, Lactated) 1,000 mls @ 125 mls/hr IV ASDIRECTED [facility] Loperamide HCl (Imodium) 4 mg PO Q6HR [facility] Last Admin: 05/08/18 22:10 Dose: Not Given Loratadine (Claritin) 10 mg PO BEDTIME [facility] Nitrofurantoin Macrocrystals (Macrobid) 100 mg PO BID [facility] Last Admin: 05/08/18 22:10 Dose: Non-Formulary Medication (Lactobacillus Acidophilus [Acidophilus Lactobacilli]) 1 each PO BID [facility] Non-Formulary Medication (Melatonin [Melatonin]) 20 mg PO BEDTIME [facility] Ondansetron HCl (Zofran) 4 mg IVPUSH Q4H PRN PRN Reason: Nausea/Vomiting Pantoprazole Sodium (Protonix Iv) 40 mg IV DAILY [facility] Sodium Chloride (Saline Flush) 10 ml FLUSH ASDIRECTED PRN PRN Reason: Keep Vein Open Last Admin: 05/08/18 18:00 Dose: 10 ml Warfarin Sodium (Coumadin) 2.5 mg PO DAILY [facility] Assessment/Plan Comment:: ANEMIA ASSOCIATED WITH CHEMOTHERAPY -Mr. Estrella completed 2 nd week of chemotherapy on Wednesday05/04/2018, is schedule to have 3 rd week of Chemotherapy of Wednesday05/11/2018. He will then have one week off of chemotherapy before next treatment starts. In ER it was noted his CBC WBC 0.9, hemoglobin 7.5, HCT 23.7, plt 117, lymphs 57.I In Mar 05, 2018 wbc 8.9, hgb 12.4, hct 36.9 Dr. dumas contacted Oncology medical office professional instructor, Oncologist recommended transfusion one unit of PRBC. He did not need to be treated with antibiotics at this time unless he has infection. -am labs: CBC, BMP,INR METASTATIC PANCREATIC CARCINOMA WITH METS TO LIVER, DEHYDRATION, WEAKNESS Mr. Estrella is having increased abdominal pain, new onset of mouth sores last Wednesday from Chemo. He has tried Magic Mouthwash without much relief of symptoms. He has been taking Dilaudid 8 mg every 3 hours schedule, but is still with break thru pain. Eating and very little due to pain and mouth sores. -currently pain management with Fentanyl 12 mcg and 25 mcg patch every 72 hours , new patch this morning with Dilaudid 8mg po every 3 hours. -will order additional Dilaudid 1 mg IV every 2 hours prn -continue gabapentin 300mg po bid -IV fluids LR at 125ml/hr HISTORY OF PORTAL VEIN THROMBOSIS; superior mesenteric vein also involved. complicating metastatic pancreatic carcinoma involving the liver. -Warfarin 2.5mg daily -INR in am INSOMNIA -Melatonin 20mg po at hs -Benadryl 25mg 2 tabs at hs. MAINTENANCE ISSUES -DVT Prophylaxis, Warfarin 2.5mg daily -GI prophylaxis: Protonix 40 mg daily -keenan catheter, not indicated -Nutrition; full liquid diet advance as tolerated CODE: full Admission status: Admit to [address] [place] [address] Admission justification. This patient will be admitted for inpatient services and is medically appropriate meeting medical necessity for inpatient admission as outlined in my documentation. I reasonably expect the patient will require inpatient services that span. Time over 2 midnights. I reasonably expect this patient to be discharged or transferred within 96 hours after admission to the critical access hospital. DISPOSITION: home with Family PRIMARY CARE PROVIDER - Dr. Mcnally HOSPITALIST - Dr. Kim
[2018-05-08] MEDS ORDERED: Cyclobenzaprine 10 MG Tab PO SCH (22:45)
[2018-05-08] MEDS ORDERED: Loperamide 2 MG Cap PO PRN (23:05)
[2018-05-08] MEDS: HYDROmorphone 2 MG Tab PO PRN (23:16)
[2018-05-08] MEDS: Gabapentin 300 MG Cap PO SCH (23:17)
[2018-05-08] MEDS: Loratadine 10 MG Tab PO SCH (23:18)
[2018-05-08] MEDS: LACTOBACILLUS ACIDOPHILUS PO SCH (23:20)
[2018-05-08] MEDS: MELATONIN 10 MG PO SCH (23:20)
[2018-05-08] MEDS: Lidocaine 2% 30 ML, Alum Hydrox/Mag Hydrox/Simeth 30 ML, diphenhydrAMINE 75 MG TOP PRN ×3 (23:21)
[2018-05-08] MEDS ORDERED: diphenhydrAMINE 25 MG Cap PO PRN (23:21)
[2018-05-09] MEDS: Lactated Ringers 1,000 ML IV SCH ×2 (00:46→14:51)
[2018-05-09] MEDS: HYDROmorphone 2 MG Tab PO PRN ×5 (02:35→21:16)
[2018-05-09] MEDS: HYDROmorphone 1 MG/ML Syringe IVPUSH PRN ×2 (04:01→06:23)
[2018-05-09] MEDS: Lidocaine 2% 30 ML, Alum Hydrox/Mag Hydrox/Simeth 30 ML, diphenhydrAMINE 75 MG TOP PRN ×9 (06:24→14:50)
[2018-05-09] MEDS: Nitrofurantoin Monohydrate/Macrocrystalline 100 MG Cap PO SCH ×2 (08:22→21:13)
[2018-05-09] MEDS: LACTOBACILLUS ACIDOPHILUS PO SCH ×2 (08:22→21:19)
[2018-05-09] MEDS: Gabapentin 300 MG Cap PO SCH ×2 (08:22→21:11)
[2018-05-09] MEDS: Hyoscyamine 0.125 MG Tab.SL PO SCH (08:22)
[2018-05-09] MEDS: Atenolol 50 MG Tab PO SCH (08:23)
[2018-05-09] MEDS ORDERED: Pantoprazole 40 MG Vial IV SCH (09:00)
[2018-05-09] MEDS ORDERED: [UNRECOGNIZED DRUG - REMARK] SCH (09:00)
[2018-05-09] MEDS ORDERED: CHECK FENTANYL 12 MCG SCH (09:00)
--- NOTE | 2018-05-09 12:19 | PCM.PN ---
- General Info Date of Service: 05/09/18 Subjective Update: There were no acute events overnight. Abdominal pain has been well-controlled. Mucositis is less painful today and he was able to eat some breakfast. Mild nausea but no vomiting. No fevers. WBC remains quite low with persistent neutropenia. Hemoglobin better with transfusion overnight. Functional Status: Reports: Pain Controlled, Tolerating Diet - Review of Systems General: Denies: Fever HEENT: Reports: Sore Throat Gastrointestinal: Denies: Abdominal Pain - Patient Data Vitals - Most Recent: Last Vital Signs Temp 36.9 C 05/09/18 12:14 Pulse 60 05/09/18 12:14 Resp 12 05/09/18 12:14 BP 127/75 05/09/18 12:14 Pulse Ox 98 05/09/18 12:14 Weight - Most Recent: 60.5 kg I&O - Last 24 Hours: Intake & Output 05/08/18 05/09/18 05/09/18 22:59 06:59 14:59 Intake Total 240 1110 400 Output Total 200 50 Balance 240 910 350 Lab Results Last 24 Hours: Laboratory Results - last 24 hr 05/08/18 05/08/18 05/08/18 Range/Units 18:25 18:26 18:26 WBC 0.9 L* (4.5-11.0) K/uL RBC 2.55 L (4.30-5.90) M/uL Hgb 7.5 L (12.0-15.0) g/dL Hct 23.7 L (40.0-54.0) % MCV 93 (80-98) fL MCH 29 (27-31) pg MCHC 32 (32-36) % Plt Count 117 L (150-400) K/uL Neut % (Auto) 39 (36-66) % Lymph % (Auto) 57 H (24-44) % [place] % (Auto) 1 L (2-6) % Eos % (Auto) 2 (2-4) % Baso % (Auto) 1 (0-1) % PT (9.5-12.0) sec INR (0.80-1.20) Sodium 135 L (140-148) mmol/L Potassium 4.4 (3.6-5.2) mmol/L Chloride 102 (100-108) mmol/L Carbon Dioxide 27 (21-32) mmol/L Anion Gap 10.4 (5.0-14.0) mmol/L BUN 16 (7-18) mg/dL Creatinine 0.8 (0.8-1.3) mg/dL Est Cr Clr Drug Dosing 90.33 mL/min Estimated GFR (MDRD) > 60 (>60) Glucose 110 H (74-106) mg/dL Calcium 8.3 L (8.5-10.1) mg/dL Total Bilirubin 1.2 H (0.2-1.0) mg/dL AST 39 H (15-37) U/L ALT 40 (12-78) U/L Alkaline Phosphatase 233 H (46-116) U/L Total Protein 5.7 L (6.4-8.2) g/dL Albumin 2.4 L (3.4-5.0) g/dL Globulin 3.3 (2.3-3.5) g/dL Albumin/Globulin Ratio 0.7 L (1.2-2.2) Urine Color Urine Appearance Urine pH (4.5-8.0) Ur Specific [place] (1.008-1.030) Urine Protein (NEGATIVE) mg/dL Urine Glucose (UA) (NEGATIVE) mg/dL Urine Ketones (NEGATIVE) mg/dL Urine Occult Blood (NEGATIVE) Urine Nitrite (NEGAITVE) Urine Bilirubin (NEGATIVE) Urine Urobilinogen (NORMAL) mg/dL Ur Leukocyte Esterase (NEGATIVE) Urine RBC (0-5) Urine WBC (0-5) Ur Epithelial Cells Amorphous Sediment Urine Bacteria Urine Mucus Blood Type A POSITIVE Gel Antibody Screen Negative Crossmatch See Detail 05/08/18 05/09/18 05/09/18 Range/Units 19:04 05:50 05:50 WBC 0.5 L* (4.5-11.0) K/uL RBC 2.82 L (4.30-5.90) M/uL Hgb 8.3 L (12.0-15.0) g/dL Hct 25.8 L (40.0-54.0) % MCV 92 (80-98) fL MCH 29 (27-31) pg MCHC 32 (32-36) % Plt Count 86 L (150-400) K/uL Neut % (Auto) 22 L (36-66) % Lymph % (Auto) 69 H (24-44) % [place] % (Auto) 6 (2-6) % Eos % (Auto) 2 (2-4) % Baso % (Auto) 2 H (0-1) % PT (9.5-12.0) sec INR (0.80-1.20) Sodium 133 L (140-148) mmol/L Potassium 4.4 (3.6-5.2) mmol/L Chloride 102 (100-108) mmol/L Carbon Dioxide 25 (21-32) mmol/L Anion Gap 10.4 (5.0-14.0) mmol/L BUN 12 (7-18) mg/dL Creatinine 0.7 L (0.8-1.3) mg/dL Est Cr Clr Drug Dosing 103.23 mL/min Estimated GFR (MDRD) > 60 (>60) Glucose 108 H (74-106) mg/dL Calcium 8.4 L (8.5-10.1) mg/dL Total Bilirubin (0.2-1.0) mg/dL AST (15-37) U/L ALT (12-78) U/L Alkaline Phosphatase (46-116) U/L Total Protein (6.4-8.2) g/dL Albumin (3.4-5.0) g/dL Globulin (2.3-3.5) g/dL Albumin/Globulin Ratio (1.2-2.2) Urine Color Yellow Urine Appearance Cloudy Urine pH 5.0 (4.5-8.0) Ur Specific [place] 1.020 (1.008-1.030) Urine Protein 30 H (NEGATIVE) mg/dL Urine Glucose (UA) Normal (NEGATIVE) mg/dL Urine Ketones Negative (NEGATIVE) mg/dL Urine Occult Blood Large (NEGATIVE) Urine Nitrite Negative (NEGAITVE) Urine Bilirubin Negative (NEGATIVE) Urine Urobilinogen Normal (NORMAL) mg/dL Ur Leukocyte Esterase Small (NEGATIVE) Urine RBC 50-75 H (0-5) Urine WBC 5-10 H (0-5) Ur Epithelial Cells Rare Amorphous Sediment Not seen Urine Bacteria Not seen Urine Mucus Rare Blood Type Gel Antibody Screen Crossmatch 05/09/18 Range/Units 05:50 WBC (4.5-11.0) K/uL RBC (4.30-5.90) M/uL Hgb (12.0-15.0) g/dL Hct (40.0-54.0) % MCV (80-98) fL MCH (27-31) pg MCHC (32-36) % Plt Count (150-400) K/uL Neut % (Auto) (36-66) % Lymph % (Auto) (24-44) % [place] % (Auto) (2-6) % Eos % (Auto) (2-4) % Baso % (Auto) (0-1) % PT 16.2 H (9.5-12.0) sec INR 1.51 H (0.80-1.20) Sodium (140-148) mmol/L Potassium (3.6-5.2) mmol/L Chloride (100-108) mmol/L Carbon Dioxide (21-32) mmol/L Anion Gap (5.0-14.0) mmol/L BUN (7-18) mg/dL Creatinine (0.8-1.3) mg/dL Est Cr Clr Drug Dosing mL/min Estimated GFR (MDRD) (>60) Glucose (74-106) mg/dL Calcium (8.5-10.1) mg/dL Total Bilirubin (0.2-1.0) mg/dL AST (15-37) U/L ALT (12-78) U/L Alkaline Phosphatase (46-116) U/L Total Protein (6.4-8.2) g/dL Albumin (3.4-5.0) g/dL Globulin (2.3-3.5) g/dL Albumin/Globulin Ratio (1.2-2.2) Urine Color Urine Appearance Urine pH (4.5-8.0) Ur Specific [place] (1.008-1.030) Urine Protein (NEGATIVE) mg/dL Urine Glucose (UA) (NEGATIVE) mg/dL Urine Ketones (NEGATIVE) mg/dL Urine Occult Blood (NEGATIVE) Urine Nitrite (NEGAITVE) Urine Bilirubin (NEGATIVE) Urine Urobilinogen (NORMAL) mg/dL Ur Leukocyte Esterase (NEGATIVE) Urine RBC (0-5) Urine WBC (0-5) Ur Epithelial Cells Amorphous Sediment Urine Bacteria Urine Mucus Blood Type Gel Antibody Screen Crossmatch Med Orders - Current: Current Medications Atenolol (Tenormin) 50 mg PO DAILY [facility] Last Admin: 05/09/18 08:23 Dose: 50 mg Lidocaine HCl 30 ml/ Al Hydroxide/Mg Hydroxide 30 ml/Diphenhydramine HCl 75 mg 0 ml TOP Q4H PRN PRN Reason: MOUTH CARE Last Admin: 05/09/18 08:26 Dose: 1 ml Cyclobenzaprine HCl (Flexeril) 20 mg PO BEDTIME [facility] Diphenhydramine HCl (Benadryl) 50 mg PO BEDTIME PRN PRN Reason: Insomnia Fentanyl (Duragesic) 12 mcg TRDERM Q72H [facility] Fentanyl (Duragesic) 25 mcg TRDERM Q72H [facility] Gabapentin (Neurontin) 300 mg PO BID [facility] Last Admin: 05/09/18 08:22 Dose: 300 mg Hydromorphone HCl (Dilaudid) 8 mg PO Q3H PRN PRN Reason: Pain (moderate 4-6) Last Admin: 05/09/18 08:21 Dose: 8 mg Hydromorphone HCl (Dilaudid) 1 mg IVPUSH Q2H PRN PRN Reason: Abdominal Pain Last Admin: 05/09/18 06:23 Dose: 1 mg Hyoscyamine (Hyomax-Sl) 0.125 mg SL Q4H PRN PRN Reason: Abdominal Pain Hyoscyamine (Hyomax-Sl) 0.125 mg PO DAILY [facility] Last Admin: 05/09/18 08:22 Dose: 0.125 mg Lactated Ringer's (Ringers, Lactated) 1,000 mls @ 125 mls/hr IV ASDIRECTED [facility] Last Admin: 05/09/18 00:46 Dose: 125 mls/hr Loperamide HCl (Imodium) 4 mg PO Q6H PRN PRN Reason: Diarrhea Loratadine (Claritin) 10 mg PO BEDTIME [facility] Last Admin: 05/08/18 23:18 Dose: Not Given Nitrofurantoin Macrocrystals (Macrobid) 100 mg PO BID [facility] Last Admin: 05/09/18 08:22 Dose: 100 mg Lactobacillus Acidophilus Caps Own Med 1 each PO BID [facility] Last Admin: 05/09/18 08:22 Dose: 1 each Melatonin [Melatonin ] 10mg TabOwn Med* * 20 mg PO BEDTIME [facility] Last Admin: 05/08/18 23:20 Dose: 20 mg Check Fentanyl 12 (Mcg Patch Daily) 0 each .XX BID [facility] Check Fentanyl 25mcg (Patch Daily) 0 each .XX BID [facility] Ondansetron HCl (Zofran) 4 mg IVPUSH Q4H PRN PRN Reason: Nausea/Vomiting Pantoprazole Sodium (Protonix) 40 mg PO ACBREAKFAST [facility] Sodium Chloride (Saline Flush) 10 ml FLUSH ASDIRECTED PRN PRN Reason: Keep Vein Open Last Admin: 05/08/18 18:00 Dose: 10 ml Warfarin Sodium (Coumadin) 2.5 mg PO DAILY@1300 [facility] Discontinued Medications Al Hydroxide/Mg Hydroxide (Mag-Al Plus) Confirm Administered Dose 30 ml .ROUTE .STK-MED ONE Stop: 05/08/18 22:11 Last Admin: 05/08/18 22:13 Dose: Not Given Cyclobenzaprine HCl (Flexeril) 20 mg PO BEDTIME [facility] Cyclobenzaprine HCl (Flexeril) 20 mg PO BEDTIME [facility] Last Admin: 05/08/18 23:17 Dose: 20 mg Diphenhydramine HCl (Benadryl) Confirm Administered Dose 75 mg .ROUTE .STK-MED ONE Stop: 05/08/18 22:13 Last Admin: 05/08/18 23:18 Dose: Not Given Fentanyl (Duragesic) 25,000 mcg TRDERM Q72H [facility] Hydromorphone HCl (Dilaudid) 1 mg IVPUSH ONETIME ONE Stop: 05/08/18 17:47 Last Admin: 05/08/18 18:00 Dose: 1 mg Hydromorphone HCl (Dilaudid) 1 mg IVPUSH ONETIME ONE Stop: 05/08/18 19:43 Last Admin: 05/08/18 20:26 Dose: Not Given Hydromorphone HCl (Dilaudid) 2 mg IVPUSH ONETIME ONE Stop: 05/08/18 19:58 Last Admin: 05/08/18 20:43 Dose: 2 mg Lactated Ringer's (Ringers, Lactated) 1,000 mls @ 1,000 mls/hr IV BOLUS ONE Stop: 05/08/18 18:46 Last Admin: 05/08/18 18:01 Dose: 1,000 mls/hr Sodium Chloride (Normal Saline) 1,000 mls @ 250 mls/hr IV ASDIRECTED [facility] Last Admin: 05/08/18 19:39 Dose: 250 mls/hr Lidocaine HCl (Xylocaine 2% Viscous) Confirm Administered Dose 30 ml .ROUTE .STK -MED ONE Stop: 05/08/18 22:11 Last Admin: 05/08/18 22:13 Dose: Not Given Loperamide HCl (Imodium) 4 mg PO Q6HR [facility] Last Admin: 05/08/18 22:10 Dose: Not Given Check Fentanyl 12 (Mcg Patch Daily) 1 each .XX DAILY [facility] Stop: 05/09/18 09:15 Last Admin: 05/09/18 08:23 Dose: Not Given Check Fentanyl 25mcg (Patch Daily) 1 each .XX DAILY [facility] Stop: 05/09/18 09:15 Last Admin: 05/09/18 08:23 Dose: Not Given Pantoprazole Sodium (Protonix Iv) 40 mg IV DAILY [facility] Stop: 05/09/18 10:00 Last Admin: 05/09/18 08:22 Dose: 40 mg - Exam Quality Assessment: No: Supplemental Oxygen General: Alert, Oriented, Cooperative, No Acute Distress HEENT: No: Scleral Icterus Neck: Supple Lungs: Normal Respiratory Effort Cardiovascular: Regular Rate, Regular Rhythm GI/Abdominal Exam: Soft, No Distention Psy/Mental Status: Alert, Normal Affect - Problem List Review Problem List Initiated/Reviewed/Updated: Yes - My Orders Last 24 Hours: My Active Orders 05/09/18 12:18 Discontinue Telemetry Monitoring [Cardiac Monitoring Discontinue] [RC] Click to Edit 05/09/18 Lunch Regular Diet [DIET] 05/10/18 05:00 BASIC METABOLIC PANEL,BMP [CHEM] Timed CBC WITH AUTO DIFF [HEME] Timed INR,PT,PROTHROMBIN TIME [COAG] Timed - Plan Plan:: ASSESSMENT AND PLAN - PANCYTOPENIA ASSOCIATED WITH CHEMOTHERAPY - he remains significantly neutropenic though hemoglobin responded to blood transfusion and is now greater than 8. Platelets are low but there is no evidence for bleeding. He also has significant mucositis associated with his chemotherapy. -Continue Magic mouthwash -Repeat labs in the morning, discuss with [facility]fusion [facility], Wednesday METASTATIC PANCREATIC CARCINOMA WITH METS TO LIVER - complicated by dehydration and weakness with recent chemotherapy. He was able to eat a little better today. -currently pain management with Fentanyl 12 mcg and 25 mcg patch every 72 hours , new patch this morning with Dilaudid 8mg po every 3 hours. 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 complicating metastatic pancreatic carcinoma involving the liver. -Warfarin 2.5mg daily -INR in am INSOMNIA -Melatonin 20mg po at hs -Benadryl 25mg 2 tabs at hs. MAINTENANCE ISSUES -DVT Prophylaxis, Warfarin 2.5mg daily -GI prophylaxis: Protonix 40 mg daily -keenan catheter, not indicated -Nutrition; regular diet DISPOSITION - home with Family Arsenio Cheatham M.D.
[2018-05-09] MEDS ORDERED: Warfarin 2.5 MG Tab PO SCH (13:00)
[2018-05-09] MEDS ORDERED: Cyclobenzaprine 10 MG Tab PO SCH (21:00)
[2018-05-09] MEDS: Cyclobenzaprine 10 MG Tab PO SCH (21:12)
[2018-05-09] MEDS: Loratadine 10 MG Tab PO SCH (21:13)
[2018-05-09] MEDS: [UNRECOGNIZED DRUG - REMARK] SCH (21:15)
[2018-05-09] MEDS: CHECK FENTANYL 12 MCG SCH (21:19)
[2018-05-09] MEDS: MELATONIN 10 MG PO SCH (21:19)
[2018-05-10] MEDS: HYDROmorphone 2 MG Tab PO PRN ×7 (00:29→22:25)
[2018-05-10] MEDS: Lactated Ringers 1,000 ML IV SCH ×3 (04:20→20:17)
[2018-05-10] MEDS: Hyoscyamine 0.125 MG Tab.SL PO SCH (08:27)
[2018-05-10] MEDS: Pantoprazole 40 MG Tab.CR PO SCH (08:27)
[2018-05-10] MEDS: Gabapentin 300 MG Cap PO SCH ×2 (08:28→20:16)
[2018-05-10] MEDS: LACTOBACILLUS ACIDOPHILUS PO SCH ×2 (08:28→20:15)
[2018-05-10] MEDS: CHECK FENTANYL 12 MCG SCH ×2 (08:28→20:18)
[2018-05-10] MEDS: Nitrofurantoin Monohydrate/Macrocrystalline 100 MG Cap PO SCH ×2 (08:28→20:16)
[2018-05-10] MEDS: Atenolol 50 MG Tab PO SCH (08:29)
[2018-05-10] MEDS: [UNRECOGNIZED DRUG - REMARK] SCH ×2 (08:29→20:18)
[2018-05-10] MEDS ORDERED: Saliva Substitute Oral Spray 120 ML Bottle MUCMEM PRN (10:47)
--- NOTE | 2018-05-10 10:55 | PCM.PN ---
- General Info Date of Service: 05/10/18 Subjective Update: There were no acute events overnight. Patient does endorse having epistaxis this morning which is improving. His mouth remains sore but oral intake has been improving. 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 Low-grade temperature elevations but no true fevers. No cough or shortness of breath. He remains neutropenic. I did talk to the oncologist overseeing his chemotherapy Dr Goode. She felt it would be acceptable to give him some Neupogen with his pancytopenia. Functional Status: Reports: Pain Controlled, Tolerating Diet - Review of Systems General: Denies: Fever HEENT: Reports: Other (mouth sores) Gastrointestinal: Reports: Abdominal Pain - Patient Data Vitals - Most Recent: Last Vital Signs Temp 36.7 C 05/10/18 07:48 Pulse 80 05/10/18 08:29 Resp 16 05/10/18 07:48 BP 119/64 05/10/18 08:29 Pulse Ox 96 05/10/18 07:48 Weight - Most Recent: 60.5 kg I&O - Last 24 Hours: Intake & Output 05/09/18 05/10/18 05/10/18 22:59 06:59 14:59 Intake Total 1800 1518 Output Total 1 Balance 1799 1518 Lab Results Last 24 Hours: Laboratory Results - last 24 hr 05/08/18 05/10/18 05/10/18 Range/Units 18:25 04:45 04:45 WBC 0.8 L* (4.5-11.0) K/uL RBC 2.73 L (4.30-5.90) M/uL Hgb 8.1 L (12.0-15.0) g/dL Hct 24.9 L (40.0-54.0) % MCV 91 (80-98) fL MCH 30 (27-31) pg MCHC 33 (32-36) % Plt Count 61 L (150-400) K/uL Add Manual Diff Yes Neutrophils % (Manual) 31 L (36-66) % Band Neutrophils % 3 L (5-11) % Lymphocytes % (Manual) 60 H (24-44) % Monocytes % (Manual) 5 (2-6) % Eosinophils % (Manual) 1 L (2-4) % PT 16.2 H (9.5-12.0) sec INR 1.51 H (0.80-1.20) Sodium (140-148) mmol/L Potassium (3.6-5.2) mmol/L Chloride (100-108) mmol/L Carbon Dioxide (21-32) mmol/L Anion Gap (5.0-14.0) mmol/L BUN (7-18) mg/dL Creatinine (0.8-1.3) mg/dL Est Cr Clr Drug Dosing mL/min Estimated GFR (MDRD) (>60) Glucose (74-106) mg/dL Calcium (8.5-10.1) mg/dL Crossmatch See Detail 05/10/18 Range/Units 04:45 WBC (4.5-11.0) K/uL RBC (4.30-5.90) M/uL Hgb (12.0-15.0) g/dL Hct (40.0-54.0) % MCV (80-98) fL MCH (27-31) pg MCHC (32-36) % Plt Count (150-400) K/uL Add Manual Diff Neutrophils % (Manual) (36-66) % Band Neutrophils % (5-11) % Lymphocytes % (Manual) (24-44) % Monocytes % (Manual) (2-6) % Eosinophils % (Manual) (2-4) % PT (9.5-12.0) sec INR (0.80-1.20) Sodium 134 L (140-148) mmol/L Potassium 4.1 (3.6-5.2) mmol/L Chloride 101 (100-108) mmol/L Carbon Dioxide 23 (21-32) mmol/L Anion Gap 14.1 H (5.0-14.0) mmol/L BUN 10 (7-18) mg/dL Creatinine 0.7 L (0.8-1.3) mg/dL Est Cr Clr Drug Dosing 103.23 mL/min Estimated GFR (MDRD) > 60 (>60) Glucose 90 (74-106) mg/dL Calcium 8.3 L (8.5-10.1) mg/dL Crossmatch Med Orders - Current: Current Medications Atenolol (Tenormin) 50 mg PO DAILY [facility] Last Admin: 05/10/18 08:29 Dose: 50 mg Lidocaine HCl 30 ml/ Al Hydroxide/Mg Hydroxide 30 ml/Diphenhydramine HCl 75 mg 0 ml TOP Q4H PRN PRN Reason: MOUTH CARE Cyclobenzaprine HCl (Flexeril) 20 mg PO BEDTIME [facility] Last Admin: 05/09/18 21:12 Dose: 20 mg Diphenhydramine HCl (Benadryl) 50 mg PO BEDTIME PRN PRN Reason: Insomnia Fentanyl (Duragesic) 12 mcg TRDERM Q72H [facility] Fentanyl (Duragesic) 25 mcg TRDERM Q72H [facility] Gabapentin (Neurontin) 300 mg PO BID [facility] Last Admin: 05/10/18 08:28 Dose: 300 mg Hydromorphone HCl (Dilaudid) 8 mg PO Q3H PRN PRN Reason: Pain (moderate 4-6) Last Admin: 05/10/18 08:29 Dose: 8 mg Hydromorphone HCl (Dilaudid) 1 mg IVPUSH Q2H PRN PRN Reason: Abdominal Pain Last Admin: 05/09/18 06:23 Dose: 1 mg Hyoscyamine (Hyomax-Sl) 0.125 mg SL Q4H PRN PRN Reason: Abdominal Pain Hyoscyamine (Hyomax-Sl) 0.125 mg PO DAILY [facility] Last Admin: 05/10/18 08:27 Dose: 0.125 mg Lactated Ringer's (Ringers, Lactated) 1,000 mls @ 50 mls/hr IV ASDIRECTED [facility] Loperamide HCl (Imodium) 4 mg PO Q6H PRN PRN Reason: Diarrhea Loratadine (Claritin) 10 mg PO BEDTIME [facility] Last Admin: 05/09/18 21:13 Dose: 10 mg Nitrofurantoin Macrocrystals (Macrobid) 100 mg PO BID [facility] Last Admin: 05/10/18 08:28 Dose: 100 mg Lactobacillus Acidophilus Caps Own Med 1 each PO BID [facility] Last Admin: 05/10/18 08:28 Dose: 1 each Melatonin [Melatonin ] 10mg TabOwn Med* * 20 mg PO BEDTIME [facility] Last Admin: 05/09/18 21:19 Dose: 20 mg Check Fentanyl 12 (Mcg Patch Daily) 0 each .XX BID [facility] Last Admin: 05/10/18 08:28 Dose: Not Given Check Fentanyl 25mcg (Patch Daily) 0 each .XX BID [facility] Last Admin: 05/10/18 08:29 Dose: Not Given Ondansetron HCl (Zofran) 4 mg IVPUSH Q4H PRN PRN Reason: Nausea/Vomiting Pantoprazole Sodium (Protonix) 40 mg PO ACBREAKFAST [facility] Last Admin: 05/10/18 08:27 Dose: 40 mg Saliva Substitute (Home-Stir Oral [place]) 1 ml MUCMEM Q2H PRN PRN Reason: dry mouth Sodium Chloride (Saline Flush) 10 ml FLUSH ASDIRECTED PRN PRN Reason: Keep Vein Open Last Admin: 05/08/18 18:00 Dose: 10 ml Tbo-Filgrastim (Granix) 300 mcg SUBCUT ONETIME ONE Stop: 05/10/18 10:52 Warfarin Sodium (Coumadin) 5 mg PO ONETIME ONE Stop: 05/10/18 13:01 Discontinued Medications Al Hydroxide/Mg Hydroxide (Mag-Al Plus) Confirm Administered Dose 30 ml .ROUTE .STK-MED ONE Stop: 05/08/18 22:11 Last Admin: 05/08/18 22:13 Dose: Not Given Lidocaine HCl 30 ml/ Al Hydroxide/Mg Hydroxide 30 ml/Diphenhydramine HCl 75 mg 0 ml TOP Q4H PRN PRN Reason: MOUTH CARE Last Admin: 05/09/18 14:50 Dose: 1 ml Cyclobenzaprine HCl (Flexeril) 20 mg PO BEDTIME [facility] Cyclobenzaprine HCl (Flexeril) 20 mg PO BEDTIME [facility] Last Admin: 05/08/18 23:17 Dose: 20 mg Diphenhydramine HCl (Benadryl) Confirm Administered Dose 75 mg .ROUTE .STK-MED ONE Stop: 05/08/18 22:13 Last Admin: 05/08/18 23:18 Dose: Not Given Fentanyl (Duragesic) 25,000 mcg TRDERM Q72H [facility] Hydromorphone HCl (Dilaudid) 1 mg IVPUSH ONETIME ONE Stop: 05/08/18 17:47 Last Admin: 05/08/18 18:00 Dose: 1 mg Hydromorphone HCl (Dilaudid) 1 mg IVPUSH ONETIME ONE Stop: 05/08/18 19:43 Last Admin: 05/08/18 20:26 Dose: Not Given Hydromorphone HCl (Dilaudid) 2 mg IVPUSH ONETIME ONE Stop: 05/08/18 19:58 Last Admin: 05/08/18 20:43 Dose: 2 mg Lactated Ringer's (Ringers, Lactated) 1,000 mls @ 1,000 mls/hr IV BOLUS ONE Stop: 05/08/18 18:46 Last Admin: 05/08/18 18:01 Dose: 1,000 mls/hr Sodium Chloride (Normal Saline) 1,000 mls @ 250 mls/hr IV ASDIRECTED [facility] Last Admin: 05/08/18 19:39 Dose: 250 mls/hr Lactated Ringer's (Ringers, Lactated) 1,000 mls @ 125 mls/hr IV ASDIRECTED [facility] Last Admin: 05/10/18 04:20 Dose: 125 mls/hr Lidocaine HCl (Xylocaine 2% Viscous) Confirm Administered Dose 30 ml .ROUTE .STK -MED ONE Stop: 05/08/18 22:11 Last Admin: 05/08/18 22:13 Dose: Not Given Loperamide HCl (Imodium) 4 mg PO Q6HR [facility] Last Admin: 05/08/18 22:10 Dose: Not Given Check Fentanyl 12 (Mcg Patch Daily) 1 each .XX DAILY [facility] Stop: 05/09/18 09:15 Last Admin: 05/09/18 08:23 Dose: Not Given Check Fentanyl 25mcg (Patch Daily) 1 each .XX DAILY [facility] Stop: 05/09/18 09:15 Last Admin: 05/09/18 08:23 Dose: Not Given Pantoprazole Sodium (Protonix Iv) 40 mg IV DAILY [facility] Stop: 05/09/18 10:00 Last Admin: 05/09/18 08:22 Dose: 40 mg Warfarin Sodium (Coumadin) 2.5 mg PO DAILY@1300 [facility] Last Admin: 05/09/18 14:49 Dose: 2.5 mg - Exam Quality Assessment: No: Supplemental Oxygen General: Alert, Oriented, Cooperative, No Acute Distress HEENT: Pupils Equal. No: Mucous Membr. Moist/[place] (dry) Lungs: Normal Respiratory Effort GI/Abdominal Exam: Soft, No Distention Extremities: No Pedal Edema Skin: Warm, Dry Psy/Mental Status: Alert, Normal Affect - Problem List Review Problem List Initiated/Reviewed/Updated: Yes - My Orders Last 24 Hours: My Active Orders 05/09/18 Lunch Regular Diet [DIET] 05/10/18 10:47 Carboxymethylcellulose/Lytes [Home-Stir Oral [place]] 1 ml MUCMEM Q2H PRN 05/10/18 10:51 Tbo-Filgrastim [Granix] 300 mcg SUBCUT ONETIME ONE 05/10/18 10:53 Communication Order [RC] ROUTINE 05/10/18 11:00 Lactated Ringers [Ringers, Lactated] 1,000 ml IV ASDIRECTED 05/10/18 13:00 Warfarin [Coumadin] 5 mg PO ONETIME ONE 05/11/18 05:00 BASIC METABOLIC PANEL,BMP [CHEM] Timed CBC WITH AUTO DIFF [HEME] Timed INR,PT,PROTHROMBIN TIME [COAG] Timed - Plan Plan:: ASSESSMENT AND PLAN - PANCYTOPENIA ASSOCIATED WITH CHEMOTHERAPY - he remains significantly neutropenic though hemoglobin responded to blood transfusion and is now greater than 8. Platelets are low but there is no evidence for bleeding. He also has significant mucositis associated with his chemotherapy. Seems to be slowly improving. -Continue Magic mouthwash -Dose of filgrastim this morning -Repeat labs in the morning METASTATIC PANCREATIC CARCINOMA WITH METS TO LIVER - extremely high CA-22 and poor prognosis. complicated by dehydration and weakness with recent chemotherapy. He was able to eat a little better today. -currently pain management with Fentanyl 12 mcg and 25 mcg patch every 72 hours , new patch this morning with Dilaudid 8mg po every 3 hours. 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 complicating metastatic pancreatic carcinoma involving the liver. INR subtherapeutic. -Warfarin 5 mg today -INR in am INSOMNIA -Melatonin 20mg po at hs -Benadryl 25mg 2 tabs at hs. MAINTENANCE ISSUES -DVT Prophylaxis, Warfarin 2.5mg daily -GI prophylaxis: Protonix 40 mg daily -keenan catheter, not indicated -Nutrition; regular diet DISPOSITION - home with Family Arsenio Cheatham M.D.
[2018-05-10] MEDS ORDERED: Warfarin 5 MG Tab PO ONE (13:00)
[2018-05-10] MEDS: Cyclobenzaprine 10 MG Tab PO SCH (20:15)
[2018-05-10] MEDS: MELATONIN 10 MG PO SCH (20:15)
[2018-05-10] MEDS: Loratadine 10 MG Tab PO SCH (20:16)
[2018-05-10] MEDS ORDERED: fentaNYL 12 MCG/HR Transdermal Patch TRDERM SCH (21:00)
[2018-05-10] MEDS: Lidocaine 2% 30 ML, Alum Hydrox/Mag Hydrox/Simeth 30 ML, diphenhydrAMINE 75 MG TOP PRN ×3 (22:26)
[2018-05-11] MEDS: HYDROmorphone 2 MG Tab PO PRN ×6 (02:11→20:45)
[2018-05-11] MEDS ORDERED: Benzocaine/Cetylpyridinium/Menthol Lozenge MUCMEM PRN (07:55)
[2018-05-11] MEDS: HYDROmorphone 1 MG/ML Syringe IVPUSH PRN ×2 (08:00→19:39)
[2018-05-11] MEDS: Lidocaine 2% 30 ML, Alum Hydrox/Mag Hydrox/Simeth 30 ML, diphenhydrAMINE 75 MG TOP PRN ×3 (08:02)
[2018-05-11] MEDS: Pantoprazole 40 MG Tab.CR PO SCH (08:18)
[2018-05-11] MEDS: Hyoscyamine 0.125 MG Tab.SL PO SCH (08:18)
[2018-05-11] MEDS: Atenolol 50 MG Tab PO SCH (08:20)
[2018-05-11] MEDS: Nitrofurantoin Monohydrate/Macrocrystalline 100 MG Cap PO SCH ×2 (08:21→20:45)
[2018-05-11] MEDS: Gabapentin 300 MG Cap PO SCH ×2 (08:21→20:45)
[2018-05-11] MEDS ORDERED: fentaNYL 12 MCG/HR Transdermal Patch TRDERM SCH (09:00)
[2018-05-11] MEDS ORDERED: fentaNYL 25 MCG/HR Transdermal Patch TRDERM SCH (09:00)
[2018-05-11] MEDS: CHECK FENTANYL 12 MCG SCH ×2 (09:53→20:47)
[2018-05-11] MEDS: LACTOBACILLUS ACIDOPHILUS PO SCH ×2 (09:53→20:44)
[2018-05-11] MEDS: [UNRECOGNIZED DRUG - REMARK] SCH ×2 (09:53→20:47)
[2018-05-11] MEDS ORDERED: Warfarin 5 MG Tab PO ONE (13:00)
--- NOTE | 2018-05-11 13:53 | PCM.PN ---
- General Info Date of Service: 05/11/18 Subjective Update: No acute events overnight. Epistaxis has resolved. Still has some pain in his mouth but this seems to be improving. Pain in the back of his throat seems to be a little worse today. No fevers overnight. Slowly getting better but still has a fair amount of pain trying to eat anything. Doing well with liquids and very soft and especially cold foods. White blood cell count is rising and he is no longer neutropenic. Functional Status: Reports: Pain Controlled, Tolerating Diet - Review of Systems General: Denies: Fever - Patient Data Vitals - Most Recent: Last Vital Signs Temp 36.5 C 05/11/18 10:50 Pulse 58 L 05/11/18 10:50 Resp 14 05/11/18 10:50 BP 102/55 L 05/11/18 10:50 Pulse Ox 97 05/11/18 10:50 Weight - Most Recent: 60.5 kg I&O - Last 24 Hours: Intake & Output 05/10/18 05/11/18 05/11/18 22:59 06:59 14:59 Intake Total 1776 Balance 1776 Lab Results Last 24 Hours: Laboratory Results - last 24 hr 05/11/18 05/11/18 05/11/18 Range/Units 05:35 05:35 05:35 WBC 1.7 L (4.5-11.0) K/uL RBC 2.67 L (4.30-5.90) M/uL Hgb 8.0 L (12.0-15.0) g/dL Hct 24.4 L (40.0-54.0) % MCV 91 (80-98) fL MCH 30 (27-31) pg MCHC 33 (32-36) % Plt Count 44 L (150-400) K/uL Add Manual Diff Yes Neutrophils % (Manual) 40 (36-66) % Band Neutrophils % 8 (5-11) % Lymphocytes % (Manual) 36 (24-44) % Monocytes % (Manual) 14 H (2-6) % PT 17.1 H (9.5-12.0) sec INR 1.60 H (0.80-1.20) Sodium 135 L (140-148) mmol/L Potassium 3.7 (3.6-5.2) mmol/L Chloride 102 (100-108) mmol/L Carbon Dioxide 24 (21-32) mmol/L Anion Gap 12.7 (5.0-14.0) mmol/L BUN 9 (7-18) mg/dL Creatinine 0.7 L (0.8-1.3) mg/dL Est Cr Clr Drug Dosing 103.23 mL/min Estimated GFR (MDRD) > 60 (>60) Glucose 73 L (74-106) mg/dL Calcium 8.3 L (8.5-10.1) mg/dL Med Orders - Current: Current Medications Atenolol (Tenormin) 50 mg PO DAILY [facility] Last Admin: 05/11/18 08:20 Dose: 50 mg Benzocaine/Menthol (Cepacol Sore Throat) 1 lozenge MUCMEM ASDIRECTED PRN PRN Reason: Pain Lidocaine HCl 30 ml/ Al Hydroxide/Mg Hydroxide 30 ml/Diphenhydramine HCl 75 mg 0 ml TOP Q4H PRN PRN Reason: MOUTH CARE Last Admin: 05/11/18 08:02 Dose: 120 ml Cyclobenzaprine HCl (Flexeril) 20 mg PO BEDTIME [facility] Last Admin: 05/10/18 20:15 Dose: 20 mg Diphenhydramine HCl (Benadryl) 50 mg PO BEDTIME PRN PRN Reason: Insomnia Fentanyl (Duragesic) 12 mcg TRDERM Q72H [facility] Last Admin: 05/11/18 08:06 Dose: 12 mcg Fentanyl (Duragesic) 25 mcg TRDERM Q72H [facility] Last Admin: 05/11/18 08:08 Dose: 25 mcg Gabapentin (Neurontin) 300 mg PO BID [facility] Last Admin: 05/11/18 08:21 Dose: 300 mg Hydromorphone HCl (Dilaudid) 8 mg PO Q3H PRN PRN Reason: Pain (moderate 4-6) Last Admin: 05/11/18 13:20 Dose: 8 mg Hydromorphone HCl (Dilaudid) 1 mg IVPUSH Q2H PRN PRN Reason: Abdominal Pain Last Admin: 05/11/18 08:00 Dose: 1 mg Hyoscyamine (Hyomax-Sl) 0.125 mg SL Q4H PRN PRN Reason: Abdominal Pain Hyoscyamine (Hyomax-Sl) 0.125 mg PO DAILY [facility] Last Admin: 05/11/18 08:18 Dose: 0.125 mg Lactated Ringer's (Ringers, Lactated) 1,000 mls @ 50 mls/hr IV ASDIRECTED [facility] Last Admin: 05/10/18 20:17 Dose: 50 mls/hr Loperamide HCl (Imodium) 4 mg PO Q6H PRN PRN Reason: Diarrhea Loratadine (Claritin) 10 mg PO BEDTIME [facility] Last Admin: 05/10/18 20:16 Dose: 10 mg Nitrofurantoin Macrocrystals (Macrobid) 100 mg PO BID [facility] Last Admin: 05/11/18 08:21 Dose: 100 mg Lactobacillus Acidophilus Caps Own Med 1 each PO BID [facility] Last Admin: 05/11/18 09:53 Dose: Not Given Melatonin [Melatonin ] 10mg TabOwn Med* * 20 mg PO BEDTIME [facility] Last Admin: 05/10/18 20:15 Dose: 20 mg Check Fentanyl 12 (Mcg Patch Daily) 0 each .XX BID [facility] Last Admin: 05/11/18 09:53 Dose: Not Given Check Fentanyl 25mcg (Patch Daily) 0 each .XX BID [facility] Last Admin: 05/11/18 09:53 Dose: Not Given Ondansetron HCl (Zofran) 4 mg IVPUSH Q4H PRN PRN Reason: Nausea/Vomiting Pantoprazole Sodium (Protonix) 40 mg PO ACBREAKFAST [facility] Last Admin: 05/11/18 08:18 Dose: 40 mg Saliva Substitute (Home-Stir Oral [place]) 1 ml MUCMEM Q2H PRN PRN Reason: dry mouth Last Admin: 05/10/18 13:08 Dose: 1 spray Sodium Chloride (Saline Flush) 10 ml FLUSH ASDIRECTED PRN PRN Reason: Keep Vein Open Last Admin: 05/08/18 18:00 Dose: 10 ml Discontinued Medications Al Hydroxide/Mg Hydroxide (Mag-Al Plus) Confirm Administered Dose 30 ml .ROUTE .STK-MED ONE Stop: 05/08/18 22:11 Last Admin: 05/08/18 22:13 Dose: Not Given Lidocaine HCl 30 ml/ Al Hydroxide/Mg Hydroxide 30 ml/Diphenhydramine HCl 75 mg 0 ml TOP Q4H PRN PRN Reason: MOUTH CARE Last Admin: 05/09/18 14:50 Dose: 1 ml Cyclobenzaprine HCl (Flexeril) 20 mg PO BEDTIME [facility] Cyclobenzaprine HCl (Flexeril) 20 mg PO BEDTIME [facility] Last Admin: 05/08/18 23:17 Dose: 20 mg Diphenhydramine HCl (Benadryl) Confirm Administered Dose 75 mg .ROUTE .STK-MED ONE Stop: 05/08/18 22:13 Last Admin: 05/08/18 23:18 Dose: Not Given Fentanyl (Duragesic) 25,000 mcg TRDERM Q72H [facility] Hydromorphone HCl (Dilaudid) 1 mg IVPUSH ONETIME ONE Stop: 05/08/18 17:47 Last Admin: 05/08/18 18:00 Dose: 1 mg Hydromorphone HCl (Dilaudid) 1 mg IVPUSH ONETIME ONE Stop: 05/08/18 19:43 Last Admin: 05/08/18 20:26 Dose: Not Given Hydromorphone HCl (Dilaudid) 2 mg IVPUSH ONETIME ONE Stop: 05/08/18 19:58 Last Admin: 05/08/18 20:43 Dose: 2 mg Lactated Ringer's (Ringers, Lactated) 1,000 mls @ 1,000 mls/hr IV BOLUS ONE Stop: 05/08/18 18:46 Last Admin: 05/08/18 18:01 Dose: 1,000 mls/hr Sodium Chloride (Normal Saline) 1,000 mls @ 250 mls/hr IV ASDIRECTED [facility] Last Admin: 05/08/18 19:39 Dose: 250 mls/hr Lactated Ringer's (Ringers, Lactated) 1,000 mls @ 125 mls/hr IV ASDIRECTED [facility] Last Admin: 05/10/18 04:20 Dose: 125 mls/hr Lidocaine HCl (Xylocaine 2% Viscous) Confirm Administered Dose 30 ml .ROUTE .STK -MED ONE Stop: 05/08/18 22:11 Last Admin: 05/08/18 22:13 Dose: Not Given Loperamide HCl (Imodium) 4 mg PO Q6HR [facility] Last Admin: 05/08/18 22:10 Dose: Not Given Check Fentanyl 12 (Mcg Patch Daily) 1 each .XX DAILY [facility] Stop: 05/09/18 09:15 Last Admin: 05/09/18 08:23 Dose: Not Given Check Fentanyl 25mcg (Patch Daily) 1 each .XX DAILY [facility] Stop: 05/09/18 09:15 Last Admin: 05/09/18 08:23 Dose: Not Given Pantoprazole Sodium (Protonix Iv) 40 mg IV DAILY [facility] Stop: 05/09/18 10:00 Last Admin: 05/09/18 08:22 Dose: 40 mg Tbo-Filgrastim (Granix) 300 mcg SUBCUT ONETIME ONE Stop: 05/10/18 12:01 Last Admin: 05/10/18 13:09 Dose: 300 mcg Tbo-Filgrastim (Granix) 300 mcg SUBCUT ONETIME ONE Stop: 05/11/18 10:01 Last Admin: 05/11/18 10:28 Dose: 300 mcg Warfarin Sodium (Coumadin) 2.5 mg PO DAILY@1300 [facility] Last Admin: 05/09/18 14:49 Dose: 2.5 mg Warfarin Sodium (Coumadin) 5 mg PO ONETIME ONE Stop: 05/10/18 13:01 Last Admin: 05/10/18 13:09 Dose: 5 mg Warfarin Sodium (Coumadin) 5 mg PO ONETIME ONE Stop: 05/11/18 13:01 Last Admin: 05/11/18 13:20 Dose: 5 mg - Exam Quality Assessment: No: Supplemental Oxygen General: Alert, Oriented, Cooperative, No Acute Distress HEENT: Pupils Equal Lungs: Normal Respiratory Effort GI/Abdominal Exam: Soft, No Distention Skin: Warm, Dry Psy/Mental Status: Alert, Normal Affect - Problem List Review Problem List Initiated/Reviewed/Updated: Yes - My Orders Last 24 Hours: My Active Orders 05/11/18 07:55 Benzocaine/Cetylpyrd/Menthol [Cepacol Sore Throat] 1 lozenge MUCMEM ASDIRECTED PRN 05/12/18 05:00 BASIC METABOLIC PANEL,BMP [CHEM] Timed CBC WITH AUTO DIFF [HEME] Timed INR,PT,PROTHROMBIN TIME [COAG] Timed - Plan Plan:: ASSESSMENT AND PLAN - PANCYTOPENIA ASSOCIATED WITH CHEMOTHERAPY - no longer neutropenic but white blood cell count still very low. Hemoglobin stable. Platelets slightly lower today. No ongoing evidence for bleeding. Still has a fair amount of pain in his mouth and throat but slowly getting better. -Continue Magic mouthwash -Second Dose of filgrastim this morning -Repeat labs in the morning METASTATIC PANCREATIC CARCINOMA WITH METS TO LIVER - extremely high CA-22 and poor prognosis. complicated by dehydration and weakness with recent chemotherapy. He is slowly improving but not quite safe for outpatient management. -currently pain management with Fentanyl 12 mcg and 25 mcg patch every 72 hours , new patch this morning with Dilaudid 8mg po every 3 hours. 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 complicating metastatic pancreatic carcinoma involving the liver. INR subtherapeutic. -Warfarin 5 mg again today -INR in am INSOMNIA -Melatonin 20mg po at hs -Benadryl 25mg 2 tabs at hs. MAINTENANCE ISSUES -DVT Prophylaxis, Warfarin -GI prophylaxis: Protonix 40 mg daily -keenan catheter, not indicated -Nutrition; regular diet DISPOSITION - home with Family Arsenio Cheatham M.D.
[2018-05-11] MEDS: Lactated Ringers 1,000 ML IV SCH (15:58)
[2018-05-11] MEDS: MELATONIN 10 MG PO SCH (20:44)
[2018-05-11] MEDS: Cyclobenzaprine 10 MG Tab PO SCH (20:45)
[2018-05-11] MEDS: Loratadine 10 MG Tab PO SCH (20:45)
[2018-05-12] MEDS: HYDROmorphone 2 MG Tab PO PRN ×5 (03:22→23:51)
[2018-05-12] MEDS: Pantoprazole 40 MG Tab.CR PO SCH (07:16)
[2018-05-12] MEDS: Atenolol 50 MG Tab PO SCH (09:23)
[2018-05-12] MEDS: Gabapentin 300 MG Cap PO SCH ×2 (09:23→21:36)
[2018-05-12] MEDS: Hyoscyamine 0.125 MG Tab.SL PO SCH (09:23)
[2018-05-12] MEDS: Nitrofurantoin Monohydrate/Macrocrystalline 100 MG Cap PO SCH ×2 (09:24→21:36)
[2018-05-12] MEDS: LACTOBACILLUS ACIDOPHILUS PO SCH ×2 (09:25→21:37)
[2018-05-12] MEDS: CHECK FENTANYL 12 MCG SCH ×2 (10:35→21:36)
[2018-05-12] MEDS: [UNRECOGNIZED DRUG - REMARK] SCH ×2 (10:36→21:35)
[2018-05-12] MEDS: Lactated Ringers 1,000 ML IV SCH (10:58)
--- NOTE | 2018-05-12 12:30 | PCM.PN ---
- General Info Date of Service: 05/12/18 Subjective Update: There were no acute events overnight. No fevers. Odynophagia and pharyngitis or slowly improving. He was able to eat a little bit more for breakfast today. Abdominal pain has been fairly well-controlled with one exception last night. No nausea or vomiting. White blood cell count and platelets are slowly improving and hemoglobin is stable. Functional Status: Reports: Pain Controlled, Tolerating Diet - Review of Systems General: Reports: Weakness. Denies: Fever HEENT: Reports: Sore Throat, Other (odynophagia) - Patient Data Vitals - Most Recent: Last Vital Signs Temp 36.3 C 05/12/18 10:58 Pulse 63 05/12/18 10:58 Resp 16 05/12/18 10:58 BP 94/54 L 05/12/18 10:58 Pulse Ox 95 05/12/18 10:58 Weight - Most Recent: 60.5 kg I&O - Last 24 Hours: Intake & Output 05/11/18 05/12/18 05/12/18 22:59 06:59 14:59 Intake Total 400 1480 480 Balance 400 1480 480 Lab Results Last 24 Hours: Laboratory Results - last 24 hr 05/12/18 05/12/18 05/12/18 Range/Units 04:10 04:10 04:10 WBC 3.3 L (4.5-11.0) K/uL RBC 2.65 L (4.30-5.90) M/uL Hgb 7.8 L (12.0-15.0) g/dL Hct 24.4 L (40.0-54.0) % MCV 92 (80-98) fL MCH 29 (27-31) pg MCHC 32 (32-36) % Plt Count 56 L (150-400) K/uL Add Manual Diff Yes Neutrophils % (Manual) 48 (36-66) % Band Neutrophils % 6 (5-11) % Lymphocytes % (Manual) 26 (24-44) % Monocytes % (Manual) 19 H (2-6) % Eosinophils % (Manual) 1 L (2-4) % PT 16.4 H (9.5-12.0) sec INR 1.53 H (0.80-1.20) Sodium 135 L (140-148) mmol/L Potassium 3.5 L (3.6-5.2) mmol/L Chloride 102 (100-108) mmol/L Carbon Dioxide 25 (21-32) mmol/L Anion Gap 11.5 (5.0-14.0) mmol/L BUN 7 (7-18) mg/dL Creatinine 0.7 L (0.8-1.3) mg/dL Est Cr Clr Drug Dosing 103.23 mL/min Estimated GFR (MDRD) > 60 (>60) Glucose 75 (74-106) mg/dL Calcium 8.6 (8.5-10.1) mg/dL Med Orders - Current: Current Medications Atenolol (Tenormin) 50 mg PO DAILY [facility] Last Admin: 05/12/18 09:23 Dose: 50 mg Benzocaine/Menthol (Cepacol Sore Throat) 1 lozenge MUCMEM ASDIRECTED PRN PRN Reason: Pain Last Admin: 05/11/18 17:29 Dose: 1 ina Lidocaine HCl 30 ml/ Al Hydroxide/Mg Hydroxide 30 ml/Diphenhydramine HCl 75 mg 0 ml TOP Q4H PRN PRN Reason: MOUTH CARE Last Admin: 05/11/18 08:02 Dose: 85 ml Cyclobenzaprine HCl (Flexeril) 20 mg PO BEDTIME [facility] Last Admin: 05/11/18 20:45 Dose: 20 mg Diphenhydramine HCl (Benadryl) 50 mg PO BEDTIME PRN PRN Reason: Insomnia Fentanyl (Duragesic) 12 mcg TRDERM Q72H [facility] Last Admin: 05/11/18 08:06 Dose: 12 mcg Fentanyl (Duragesic) 25 mcg TRDERM Q72H [facility] Last Admin: 05/11/18 08:08 Dose: 25 mcg Gabapentin (Neurontin) 300 mg PO BID [facility] Last Admin: 05/12/18 09:23 Dose: 300 mg Hydromorphone HCl (Dilaudid) 8 mg PO Q3H PRN PRN Reason: Pain (moderate 4-6) Last Admin: 05/12/18 07:16 Dose: 8 mg Hydromorphone HCl (Dilaudid) 1 mg IVPUSH Q2H PRN PRN Reason: Abdominal Pain Last Admin: 05/11/18 19:39 Dose: 1 mg Hyoscyamine (Hyomax-Sl) 0.125 mg SL Q4H PRN PRN Reason: Abdominal Pain Hyoscyamine (Hyomax-Sl) 0.125 mg PO DAILY [facility] Last Admin: 05/12/18 09:23 Dose: 0.125 mg Lactated Ringer's (Ringers, Lactated) 1,000 mls @ 50 mls/hr IV ASDIRECTED [facility] Last Admin: 05/12/18 10:58 Dose: 50 mls/hr Loperamide HCl (Imodium) 4 mg PO Q6H PRN PRN Reason: Diarrhea Loratadine (Claritin) 10 mg PO BEDTIME [facility] Last Admin: 05/11/18 20:45 Dose: 10 mg Nitrofurantoin Macrocrystals (Macrobid) 100 mg PO BID [facility] Last Admin: 05/12/18 09:24 Dose: 100 mg Lactobacillus Acidophilus Caps Own Med 1 each PO BID [facility] Last Admin: 05/12/18 09:25 Dose: 1 each Melatonin [Melatonin ] 10mg TabOwn Med* * 20 mg PO BEDTIME [facility] Last Admin: 05/11/18 20:44 Dose: 20 mg Check Fentanyl 12 (Mcg Patch Daily) 0 each .XX BID [facility] Last Admin: 05/12/18 10:35 Dose: Not Given Check Fentanyl 25mcg (Patch Daily) 0 each .XX BID [facility] Last Admin: 05/12/18 10:36 Dose: Not Given Ondansetron HCl (Zofran) 4 mg IVPUSH Q4H PRN PRN Reason: Nausea/Vomiting Pantoprazole Sodium (Protonix) 40 mg PO ACBREAKFAST [facility] Last Admin: 05/12/18 07:16 Dose: 40 mg Saliva Substitute (Home-Stir Oral [place]) 1 ml MUCMEM Q2H PRN PRN Reason: dry mouth Last Admin: 05/10/18 13:08 Dose: 1 spray Sodium Chloride (Saline Flush) 10 ml FLUSH ASDIRECTED PRN PRN Reason: Keep Vein Open Last Admin: 05/08/18 18:00 Dose: 10 ml Discontinued Medications Al Hydroxide/Mg Hydroxide (Mag-Al Plus) Confirm Administered Dose 30 ml .ROUTE .STK-MED ONE Stop: 05/08/18 22:11 Last Admin: 05/08/18 22:13 Dose: Not Given Lidocaine HCl 30 ml/ Al Hydroxide/Mg Hydroxide 30 ml/Diphenhydramine HCl 75 mg 0 ml TOP Q4H PRN PRN Reason: MOUTH CARE Last Admin: 05/09/18 14:50 Dose: 1 ml Cyclobenzaprine HCl (Flexeril) 20 mg PO BEDTIME [facility] Cyclobenzaprine HCl (Flexeril) 20 mg PO BEDTIME [facility] Last Admin: 05/08/18 23:17 Dose: 20 mg Diphenhydramine HCl (Benadryl) Confirm Administered Dose 75 mg .ROUTE .STK-MED ONE Stop: 05/08/18 22:13 Last Admin: 05/08/18 23:18 Dose: Not Given Fentanyl (Duragesic) 25,000 mcg TRDERM Q72H [facility] Hydromorphone HCl (Dilaudid) 1 mg IVPUSH ONETIME ONE Stop: 05/08/18 17:47 Last Admin: 05/08/18 18:00 Dose: 1 mg Hydromorphone HCl (Dilaudid) 1 mg IVPUSH ONETIME ONE Stop: 05/08/18 19:43 Last Admin: 05/08/18 20:26 Dose: Not Given Hydromorphone HCl (Dilaudid) 2 mg IVPUSH ONETIME ONE Stop: 05/08/18 19:58 Last Admin: 05/08/18 20:43 Dose: 2 mg Lactated Ringer's (Ringers, Lactated) 1,000 mls @ 1,000 mls/hr IV BOLUS ONE Stop: 05/08/18 18:46 Last Admin: 05/08/18 18:01 Dose: 1,000 mls/hr Sodium Chloride (Normal Saline) 1,000 mls @ 250 mls/hr IV ASDIRECTED [facility] Last Admin: 05/08/18 19:39 Dose: 250 mls/hr Lactated Ringer's (Ringers, Lactated) 1,000 mls @ 125 mls/hr IV ASDIRECTED [facility] Last Admin: 05/10/18 04:20 Dose: 125 mls/hr Lidocaine HCl (Xylocaine 2% Viscous) Confirm Administered Dose 30 ml .ROUTE .STK -MED ONE Stop: 05/08/18 22:11 Last Admin: 05/08/18 22:13 Dose: Not Given Loperamide HCl (Imodium) 4 mg PO Q6HR [facility] Last Admin: 05/08/18 22:10 Dose: Not Given Check Fentanyl 12 (Mcg Patch Daily) 1 each .XX DAILY [facility] Stop: 05/09/18 09:15 Last Admin: 05/09/18 08:23 Dose: Not Given Check Fentanyl 25mcg (Patch Daily) 1 each .XX DAILY [facility] Stop: 05/09/18 09:15 Last Admin: 05/09/18 08:23 Dose: Not Given Pantoprazole Sodium (Protonix Iv) 40 mg IV DAILY [facility] Stop: 05/09/18 10:00 Last Admin: 05/09/18 08:22 Dose: 40 mg Tbo-Filgrastim (Granix) 300 mcg SUBCUT ONETIME ONE Stop: 05/10/18 12:01 Last Admin: 05/10/18 13:09 Dose: 300 mcg Tbo-Filgrastim (Granix) 300 mcg SUBCUT ONETIME ONE Stop: 05/11/18 10:01 Last Admin: 05/11/18 10:28 Dose: 300 mcg Warfarin Sodium (Coumadin) 2.5 mg PO DAILY@1300 [facility] Last Admin: 05/09/18 14:49 Dose: 2.5 mg Warfarin Sodium (Coumadin) 5 mg PO ONETIME ONE Stop: 05/10/18 13:01 Last Admin: 05/10/18 13:09 Dose: 5 mg Warfarin Sodium (Coumadin) 5 mg PO ONETIME ONE Stop: 05/11/18 13:01 Last Admin: 05/11/18 13:20 Dose: 5 mg - Exam Quality Assessment: No: Supplemental Oxygen General: Alert, Oriented, Cooperative, No Acute Distress HEENT: Pupils Equal, Mucous Membr. Moist/[place] Lungs: Normal Respiratory Effort GI/Abdominal Exam: Soft, No Distention Extremities: No Pedal Edema Psy/Mental Status: Alert, Normal Affect - Problem List Review Problem List Initiated/Reviewed/Updated: Yes - My Orders Last 24 Hours: My Active Orders 05/12/18 12:28 Tbo-Filgrastim [Granix] 300 mcg SUBCUT ONETIME ONE 05/12/18 12:29 Convert IV to Saline Lock [OM.PC] Routine 05/12/18 13:00 Warfarin [Coumadin] 7.5 mg PO ONETIME ONE 05/13/18 05:00 BASIC METABOLIC PANEL,BMP [CHEM] Timed CBC W/O DIFF,HEMOGRAM [HEME] Timed (1) INR,PT,PROTHROMBIN TIME [COAG] Timed - Plan Plan:: ASSESSMENT AND PLAN - PANCYTOPENIA ASSOCIATED WITH CHEMOTHERAPY - white blood cell count and platelets trending up and hemoglobin is stable. Counts should be adequate after a third dose of filgrastim today. -Continue Magic mouthwash -Third Dose of filgrastim this morning -Repeat labs in the morning -Transfuse red blood cells if hemoglobin less than 7 METASTATIC PANCREATIC CARCINOMA WITH METS TO LIVER - extremely high CA-19-9 and poor prognosis. complicated by dehydration and weakness with recent chemotherapy. He is slowly improving and should be ready for outpatient management tomorrow if the current trend continues. Oral intake still not great but improving each day. -currently pain management with Fentanyl 12 mcg and 25 mcg patch every 72 hours -PO Dilaudid 8mg po every 3 hours. -Dilaudid 1 mg IV every 2 hours prn -continue gabapentin 300mg po bid -Saline lock IV HISTORY OF PORTAL VEIN THROMBOSIS - superior mesenteric vein also involved. complicating metastatic pancreatic carcinoma involving the liver. INR still subtherapeutic. -Warfarin 7.5 mg again today -INR in am INSOMNIA -Melatonin 20mg po at hs -Benadryl 25mg 2 tabs at hs. MAINTENANCE ISSUES -DVT Prophylaxis, Warfarin -GI prophylaxis: Protonix 40 mg daily -keenan catheter, not indicated -Nutrition; regular diet DISPOSITION - home with Family tomorrow Arsenio Cheatham M.D.
[2018-05-12] MEDS ORDERED: Warfarin 2.5 MG Tab PO ONE (13:00)
[2018-05-12] MEDS: Loratadine 10 MG Tab PO SCH (21:36)
[2018-05-12] MEDS: Cyclobenzaprine 10 MG Tab PO SCH (21:36)
[2018-05-12] MEDS: MELATONIN 10 MG PO SCH (21:37)
[2018-05-13] MEDS: Pantoprazole 40 MG Tab.CR PO SCH (07:27)
[2018-05-13] MEDS: HYDROmorphone 2 MG Tab PO PRN ×2 (07:27→10:38)
[2018-05-13] MEDS ORDERED: Potassium Chloride 20 MEQ Tab.ER PO ONE (10:00)
[2018-05-13] MEDS: Hyoscyamine 0.125 MG Tab.SL PO SCH (10:32)
[2018-05-13] MEDS: Nitrofurantoin Monohydrate/Macrocrystalline 100 MG Cap PO SCH (10:32)
[2018-05-13] MEDS: LACTOBACILLUS ACIDOPHILUS PO SCH (10:33)
[2018-05-13] MEDS: Gabapentin 300 MG Cap PO SCH (10:33)
[2018-05-13] MEDS: Atenolol 50 MG Tab PO SCH (10:33)
[2018-05-13 10:38] VITALS: BP 112/68
[2018-05-13] MEDS: CHECK FENTANYL 12 MCG SCH (10:39)
[2018-05-13] MEDS: [UNRECOGNIZED DRUG - REMARK] SCH (10:39)
--- NOTE | 2018-05-13 12:44 | PCM.DCSUM1 ---
Discharge Summary - Hospital Course Brief History: Mr. Estrella is a 52-year-old gentleman with a known history of metastatic pancreatic carcinoma. He was admitted through the emergency department with absolute neutropenia and mucositis secondary to recent chemotherapy. - Discharge Data Discharge Date: 05/13/18 Discharge Disposition: Home, Self-Care 01 Condition: Fair - Discharge Diagnosis/Problem(s) (1) Neutropenia associated with mucositis due to antineoplastic therapy SNOMED Code(s): 990193825 ICD Code: D70.8 - OTHER NEUTROPENIA; K12.32 - ORAL MUCOSITIS (ULCERATIVE) DUE TO OTHER DRUGS Status: Acute Current Visit: Yes (2) Anemia associated with chemotherapy Status: Acute Priority: High Current Visit: Yes (3) Portal vein thrombosis SNOMED Code(s): 30693440 ICD Code: I81 - PORTAL VEIN THROMBOSIS Status: Chronic Priority: Medium Current Visit: No (4) Pancreatic carcinoma metastatic to liver SNOMED Code(s): 764619852, 133936920 ICD Code: C25.9 - MALIGNANT NEOPLASM OF PANCREAS, UNSPECIFIED; C78.7 - SECONDARY MALIG NEOPLASM OF LIVER AND INTRAHEPATIC BILE DUCT Status: Chronic Current Visit: No - Patient Summary/Data Hospital Course: Mr. Estrella is a 52-year-old male with pancreatic cancer started a new chemotherapy regimen 2 weeks ago and it's made him very ill. He has stomach cramping, no appetite, and sores in his mouth preventing him from eating. According to his family he is "wasting away" and not eating or drinking anything , extremely weak. No fevers or chills, no nausea or vomiting. He had hematuria last week but after an antibiotic treatment it resolved. culture +MRSA. Evaluation in the emergency department showed him to be absolutely neutropenic with a neutrophil count of less than 500. With no evidence of underlying infection he was not given empiric antibiotic therapy. On admission he was given IV fluids for hydration, pain medication, and medication for nausea. Following day he was started on therapy with Neupogen for management of his neutropenia. Magic mouthwash was instituted for treatment of his mucositis. He gradually improved throughout the hospital stay and by the day of discharge was able to eat without nausea vomiting. He continues to have some soreness in the mouth and will be discharged home with a Magic mouthwash. Neutrophil count did come back to within normal range with use of the Neupogen. Hemoglobin remains low but stable in the range of 9. Activity will be as tolerated and he will resume his usual diet. Follow-up appointments have been scheduled with primary care provider as well as oncology. - Patient Instructions Diet: Usual Diet as Tolerated Activity: As Tolerated - Discharge Plan *PRESCRIPTION DRUG MONITORING PROGRAM REVIEWED*: Not Applicable *COPY OF PRESCRIPTION DRUG MONITORING REPORT IN PATIENT FABIO: Not Applicable Prescriptions/Med Rec: Diphenhyd/Lidocaine/Nystatin [First-Bxn Mouthwash] 5 ml SSWAL QID #240 ml Home Medications: Home Meds Atenolol [Tenormin] 50 mg PO DAILY 02/04/13 [History] Cyclobenzaprine HCl [Flexeril] 20 mg PO BEDTIME 02/04/13 [History] Gabapentin [Neurontin] 300 mg PO BID 01/24/18 [History] Loperamide [Imodium] 4 mg PO Q6HR PRN 02/21/18 [History] Loratadine [Claritin] 10 mg PO BEDTIME 03/06/18 [History] Melatonin 20 mg PO BEDTIME 03/06/18 [History] Warfarin [Coumadin] 2.5 mg PO DAILY 03/06/18 [History] Hyoscyamine [Hyomax-SL] 0.125 mg SL Q4H PRN #20 tab.sl 03/08/18 [Rx] Lactobacillus Acidophilus [Acidophilus Lactobacilli] 1 each PO BID #60 capsule 03/08/18 [Rx] Hyoscyamine Sulfate 1 tab PO DAILY 03/12/18 [History] HYDROmorphone [Dilaudid] 8 mg PO Q3H PRN #200 tablet 03/15/18 [Rx] fentaNYL [Duragesic] 12 mcg TD Q72H #5 patch 03/15/18 [Rx] fentaNYL [Duragesic] 25 mg TRDERM Q72H #5 patch.td72 03/15/18 [Rx] Nitrofurantoin Monohyd/M-Cryst [Macrobid 100 mg Capsule] 100 mg PO BID 05/08/18 [History] Diphenhyd/Lidocaine/Nystatin [First-Bxn Mouthwash] 5 ml SSWAL QID #240 ml [Rx] Referrals: Hema Mcnally MD [Primary Care Provider] - 05/16/18 3:45 pm (Please arrive 15 minutes early to register for your appointment.) Radha España MD [Ordering Only Provider] - 05/17/18 12:30 pm (please arrive 15 minutes early to register for your appointment) - Discharge Summary/Plan Comment DC Time >30 min.: No - Patient Data Vitals - Most Recent: Last Vital Signs Temp 98.1 F 05/13/18 07:00 Pulse 62 05/13/18 10:33 Resp 12 05/13/18 07:00 BP 112/68 05/13/18 10:33 Pulse Ox 97 05/13/18 07:00 Weight - Most Recent: 133 lb 6.075 oz Lab Results - Last 24 hrs: Laboratory Results - last 24 hr 05/13/18 05/13/18 05/13/18 Range/Units 05:30 05:30 05:30 WBC 10.5 (4.5-11.0) K/uL RBC 3.06 L (4.30-5.90) M/uL Hgb 9.0 L (12.0-15.0) g/dL Hct 28.3 L (40.0-54.0) % MCV 93 (80-98) fL MCH 29 (27-31) pg MCHC 32 (32-36) % Plt Count 124 L (150-400) K/uL PT 24.9 H (9.5-12.0) sec INR 2.38 H (0.80-1.20) Sodium 139 L (140-148) mmol/L Potassium 3.4 L (3.6-5.2) mmol/L Chloride 104 (100-108) mmol/L Carbon Dioxide 26 (21-32) mmol/L Anion Gap 12.4 (5.0-14.0) mmol/L BUN 4 L (7-18) mg/dL Creatinine 0.7 L (0.8-1.3) mg/dL Est Cr Clr Drug Dosing 103.23 mL/min Estimated GFR (MDRD) > 60 (>60) Glucose 84 (74-106) mg/dL Calcium 8.6 (8.5-10.1) mg/dL Med Orders - Current: Current Medications Atenolol (Tenormin) 50 mg PO DAILY HIGINIO Last Admin: 05/13/18 10:33 Dose: 50 mg Benzocaine/Menthol (Cepacol Sore Throat) 1 lozenge MUCMEM ASDIRECTED PRN PRN Reason: Pain Last Admin: 05/11/18 17:29 Dose: 1 ina Lidocaine HCl 30 ml/ Al Hydroxide/Mg Hydroxide 30 ml/Diphenhydramine HCl 75 mg 0 ml TOP Q4H PRN PRN Reason: MOUTH CARE Last Admin: 05/11/18 08:02 Dose: 85 ml Cyclobenzaprine HCl (Flexeril) 20 mg PO BEDTIME [facility] Last Admin: 05/12/18 21:36 Dose: 20 mg Diphenhydramine HCl (Benadryl) 50 mg PO BEDTIME PRN PRN Reason: Insomnia Fentanyl (Duragesic) 12 mcg TRDERM Q72H [facility] Last Admin: 05/11/18 08:06 Dose: 12 mcg Fentanyl (Duragesic) 25 mcg TRDERM Q72H [facility] Last Admin: 05/11/18 08:08 Dose: 25 mcg Gabapentin (Neurontin) 300 mg PO BID [facility] Last Admin: 05/13/18 10:33 Dose: 300 mg Heparin Sodium (Porcine) (Heparin Lock Flush 100 Units/Ml) 500 units FLUSH ASDIRECTED PRN PRN Reason: Keep Vein Open Last Admin: 05/12/18 14:39 Dose: 500 units Hydromorphone HCl (Dilaudid) 8 mg PO Q3H PRN PRN Reason: Pain (moderate 4-6) Last Admin: 05/13/18 10:38 Dose: 8 mg Hydromorphone HCl (Dilaudid) 1 mg IVPUSH Q2H PRN PRN Reason: Abdominal Pain Last Admin: 05/11/18 19:39 Dose: 1 mg Hyoscyamine (Hyomax-Sl) 0.125 mg SL Q4H PRN PRN Reason: Abdominal Pain Hyoscyamine (Hyomax-Sl) 0.125 mg PO DAILY [facility] Last Admin: 05/13/18 10:32 Dose: 0.125 mg Loperamide HCl (Imodium) 4 mg PO Q6H PRN PRN Reason: Diarrhea Loratadine (Claritin) 10 mg PO BEDTIME [facility] Last Admin: 05/12/18 21:36 Dose: 10 mg Nitrofurantoin Macrocrystals (Macrobid) 100 mg PO BID [facility] Last Admin: 05/13/18 10:32 Dose: 100 mg Lactobacillus Acidophilus Caps Own Med 1 each PO BID [facility] Last Admin: 05/13/18 10:33 Dose: 1 each Melatonin [Melatonin ] 10mg TabOwn Med* * 20 mg PO BEDTIME [facility] Last Admin: 05/12/18 21:37 Dose: 20 mg Check Fentanyl 12 (Mcg Patch Daily) 0 each .XX BID [facility] Last Admin: 05/13/18 10:39 Dose: Not Given Check Fentanyl 25mcg (Patch Daily) 0 each .XX BID [facility] Last Admin: 05/13/18 10:39 Dose: Not Given Ondansetron HCl (Zofran) 4 mg IVPUSH Q4H PRN PRN Reason: Nausea/Vomiting Pantoprazole Sodium (Protonix) 40 mg PO ACBREAKFAST [facility] Last Admin: 05/13/18 07:27 Dose: 40 mg Saliva Substitute (Home-Stir Oral [place]) 1 ml MUCMEM Q2H PRN PRN Reason: dry mouth Last Admin: 05/10/18 13:08 Dose: 1 spray Sodium Chloride (Saline Flush) 10 ml FLUSH ASDIRECTED PRN PRN Reason: Keep Vein Open Last Admin: 05/08/18 18:00 Dose: 10 ml Discontinued Medications Al Hydroxide/Mg Hydroxide (Mag-Al Plus) Confirm Administered Dose 30 ml .ROUTE .STK-MED ONE Stop: 05/08/18 22:11 Last Admin: 05/08/18 22:13 Dose: Not Given Lidocaine HCl 30 ml/ Al Hydroxide/Mg Hydroxide 30 ml/Diphenhydramine HCl 75 mg 0 ml TOP Q4H PRN PRN Reason: MOUTH CARE Last Admin: 05/09/18 14:50 Dose: 1 ml Cyclobenzaprine HCl (Flexeril) 20 mg PO BEDTIME [facility]IG[facility] Cyclobenzaprine HCl (Flexeril) 20 mg PO BEDTIME [facility] Last Admin: 05/08/18 23:17 Dose: 20 mg Diphenhydramine HCl (Benadryl) Confirm Administered Dose 75 mg .ROUTE .STK-MED ONE Stop: 05/08/18 22:13 Last Admin: 05/08/18 23:18 Dose: Not Given Fentanyl (Duragesic) 25,000 mcg TRDERM Q72H [facility] Hydromorphone HCl (Dilaudid) 1 mg IVPUSH ONETIME ONE Stop: 05/08/18 17:47 Last Admin: 05/08/18 18:00 Dose: 1 mg Hydromorphone HCl (Dilaudid) 1 mg IVPUSH ONETIME ONE Stop: 05/08/18 19:43 Last Admin: 05/08/18 20:26 Dose: Not Given Hydromorphone HCl (Dilaudid) 2 mg IVPUSH ONETIME ONE Stop: 05/08/18 19:58 Last Admin: 05/08/18 20:43 Dose: 2 mg Lactated Ringer's (Ringers, Lactated) 1,000 mls @ 1,000 mls/hr IV BOLUS ONE Stop: 05/08/18 18:46 Last Admin: 05/08/18 18:01 Dose: 1,000 mls/hr Sodium Chloride (Normal Saline) 1,000 mls @ 250 mls/hr IV ASDIRECTED [facility] Last Admin: 05/08/18 19:39 Dose: 250 mls/hr Lactated Ringer's (Ringers, Lactated) 1,000 mls @ 125 mls/hr IV ASDIRECTED [facility] Last Admin: 05/10/18 04:20 Dose: 125 mls/hr Lactated Ringer's (Ringers, Lactated) 1,000 mls @ 50 mls/hr IV ASDIRECTED [facility] Last Admin: 05/12/18 10:58 Dose: 50 mls/hr Lidocaine HCl (Xylocaine 2% Viscous) Confirm Administered Dose 30 ml .ROUTE .STK -MED ONE Stop: 05/08/18 22:11 Last Admin: 05/08/18 22:13 Dose: Not Given Loperamide HCl (Imodium) 4 mg PO Q6HR [facility] Last Admin: 05/08/18 22:10 Dose: Not Given Check Fentanyl 12 (Mcg Patch Daily) 1 each .XX DAILY [facility] Stop: 05/09/18 09:15 Last Admin: 05/09/18 08:23 Dose: Not Given Check Fentanyl 25mcg (Patch Daily) 1 each .XX DAILY [facility] Stop: 05/09/18 09:15 Last Admin: 05/09/18 08:23 Dose: Not Given Pantoprazole Sodium (Protonix Iv) 40 mg IV DAILY [facility] Stop: 05/09/18 10:00 Last Admin: 05/09/18 08:22 Dose: 40 mg Potassium Chloride (Klor-Con M20) 40 meq PO ONETIME ONE Stop: 05/13/18 10:01 Last Admin: 05/13/18 10:34 Dose: 40 meq Tbo-Filgrastim (Granix) 300 mcg SUBCUT ONETIME ONE Stop: 05/10/18 12:01 Last Admin: 05/10/18 13:09 Dose: 300 mcg Tbo-Filgrastim (Granix) 300 mcg SUBCUT ONETIME ONE Stop: 05/11/18 10:01 Last Admin: 05/11/18 10:28 Dose: 300 mcg Tbo-Filgrastim (Granix) 300 mcg SUBCUT ONETIME ONE Stop: 05/12/18 14:01 Last Admin: 05/12/18 15:11 Dose: 300 mcg Warfarin Sodium (Coumadin) 2.5 mg PO DAILY@1300 [facility]IGINIO Last Admin: 05/09/18 14:49 Dose: 2.5 mg Warfarin Sodium (Coumadin) 5 mg PO ONETIME ONE Stop: 05/10/18 13:01 Last Admin: 05/10/18 13:09 Dose: 5 mg Warfarin Sodium (Coumadin) 5 mg PO ONETIME ONE Stop: 05/11/18 13:01 Last Admin: 05/11/18 13:20 Dose: 5 mg Warfarin Sodium (Coumadin) 7.5 mg PO ONETIME ONE Stop: 05/12/18 13:01 Last Admin: 05/12/18 14:39 Dose: 7.5 mg - Exam Quality Assessment: Reports: DVT Prophylaxis General: Reports: Alert, Oriented, Cooperative, No Acute Distress Lungs: Reports: Clear to Auscultation, Normal Respiratory Effort Cardiovascular: Reports: Regular Rate, Regular Rhythm, No Murmurs GI/Abdominal Exam: Soft, Non-Tender, No Organomegaly, No Distention Extremities: Non-Tender, No Pedal Edema
[2018-05-13] MEDS ORDERED: NYSTATIN TOP SCH ×3 (16:00)
[2018-05-13] MEDS ORDERED: DIPHENHYDRAMINE TOP SCH ×3 (16:00)
[2018-05-13] MEDS ORDERED: LIDOCAINE 2% TOP SCH ×3 (16:00)
== END 2018-05-13 13:30 | disposition home or self-care (01) | DRG 809 ==
LOC: JP.ED 16:58 → JP.MS 20:45
PROVIDERS: ADMIT Hospitalist; ATTEND Internal Medicine
PROC: 30233N1 Transfusion of Nonautologous Red Blood Cells into Peripheral Vein, Percutaneous Approach (ICD-10-PCS; principal; 2018-05-08)
DX: D70.1 Agranulocytosis secondary to cancer chemotherapy (principal); C25.9 Malignant neoplasm of pancreas, unspecified; C78.7 Secondary malignant neoplasm of liver and intrahepatic bile duct; Y92.009 Unspecified place in unspecified non-institutional (private) residence as the place of occurrence of the external cause; D64.81 Anemia due to antineoplastic chemotherapy; I10 Essential (primary) hypertension; E86.0 Dehydration; Z86.718 Personal history of other venous thrombosis and embolism; R53.1 Weakness; R10.9 Unspecified abdominal pain; K13.79 Other lesions of oral mucosa; G47.00 Insomnia, unspecified; T45.1X5A Adverse effect of antineoplastic and immunosuppressive drugs, initial encounter; K12.31 Oral mucositis (ulcerative) due to antineoplastic therapy; R04.0 Epistaxis; R13.10 Dysphagia, unspecified; J02.9 Acute pharyngitis, unspecified; M19.90 Unspecified osteoarthritis, unspecified site; Z98.1 Arthrodesis status; Z87.820 Personal history of traumatic brain injury; Z79.01 Long term (current) use of anticoagulants; Z88.1 Allergy status to other antibiotic agents; Z88.5 Allergy status to narcotic agent; Z91.048 Other nonmedicinal substance allergy status
CPT/HCPCS: 36415; 80053; 81001; 85025; 86850; 86900; 86901; 86920; 86922; 96361; 96374; 96376; 99285; J1170 ×2; J7030; J7120; 36430; 80048; 85027; 85610; 94762; A9270-GY; C9113; J1447; J1642; P9016

== ENCOUNTER 2018-05-22 10:44 | Emergency (ER) | payer MEDICARE ==
[2018-05-22 11:09] VITALS: BP 119/72
--- NOTE | 2018-05-22 11:35 | EDM.PDOC ---
ED HPI GENERAL MEDICAL PROBLEM - General Chief Complaint: General Stated Complaint: WEAK Time Seen by Provider: 05/22/18 11:33 Source of Information: Reports: Patient History Limitations: Reports: No Limitations - History of Present Illness INITIAL COMMENTS - FREE TEXT/NARRATIVE: pt got 2 units of blood on Wednesday. He had received Chemo on wed. At that time he got dexamethazone, neurlasta, and the chemo. After he received the chemo he got very distended in his abdoman. He developed a total body rash He did not receive any other meds on Wednesday beside the blood. Onset: Gradual, Other ( started wednesday nite. ) Duration: Hour(s): Location: Reports: Abdomen Associated Symptoms: Reports: Shortness of Breath, Other ( total body rash. ) - Related Data Allergies Allergy/AdvReac Type Severity Reaction Status Date / Time adhesive Allergy Intermediate Rash Verified 05/22/18 11:09 ciprofloxacin [From Cipro] Allergy Rash Verified 05/22/18 11:09 levofloxacin [From Levaquin] Allergy Rash Verified 05/22/18 11:09 oxycodone HCl [From Tylox] Allergy Rash Verified 05/22/18 11:09 Home Meds: Home Meds Atenolol [Tenormin] 50 mg PO DAILY 02/04/13 [History] Cyclobenzaprine HCl [Flexeril] 20 mg PO BEDTIME 02/04/13 [History] Gabapentin [Neurontin] 300 mg PO BID 01/24/18 [History] Loperamide [Imodium] 4 mg PO Q6HR PRN 02/21/18 [History] Loratadine [Claritin] 10 mg PO BEDTIME 03/06/18 [History] Melatonin 20 mg PO BEDTIME 03/06/18 [History] Warfarin [Coumadin] 2.5 mg PO DAILY 03/06/18 [History] Hyoscyamine [Hyomax-SL] 0.125 mg SL Q4H PRN #20 tab.sl 03/08/18 [Rx] Lactobacillus Acidophilus [Acidophilus Lactobacilli] 1 each PO BID #60 capsule 03/08/18 [Rx] Hyoscyamine Sulfate 1 tab PO DAILY 03/12/18 [History] HYDROmorphone [Dilaudid] 8 mg PO Q3H PRN #200 tablet 03/15/18 [Rx] fentaNYL [Duragesic] 12 mcg TD Q72H #5 patch 03/15/18 [Rx] fentaNYL [Duragesic] 25 mg TRDERM Q72H #5 patch.td72 03/15/18 [Rx] Nitrofurantoin Monohyd/M-Cryst [Macrobid 100 mg Capsule] 100 mg PO BID 05/08/18 [History] Diphenhyd/Lidocaine/Nystatin [First-Bxn Mouthwash] 5 ml SSWAL QID #240 ml [Rx] Past Medical History HEENT History: Reports: None Cardiovascular History: Reports: Hypertension Gastrointestinal History: Reports: None Other Gastrointestinal History: cancer pancreas and liver, new mass in R small bowel Musculoskeletal History: Reports: Osteoarthritis Neurological History: Reports: Concussion Other Neuro History: TBI Psychiatric History: Reports: Depression Hematologic History: Reports: Anticoagulation Therapy, Blood Transfusion(s) Immunologic History: Reports: Other (See Below) Other Immunologic History: Pancreatic CA with mets. chemo treatment Oncologic (Cancer) History: Reports: Liver, Metastatic, Pancreatic Other Oncologic History: small bowel Dermatologic History: Reports: Other (See Below) Other Dermatologic History: new rash ? from fentanyl patches - Infectious Disease History Infectious Disease History: Reports: Chicken Pox, MRSA - Past Surgical History HEENT Surgical History: Reports: Other (See Below) Other HEENT Surgeries/Procedures: metal taken out of eye, deviated septum GI Surgical History: Reports: Hernia, Abdominal, Other (See Below) Other GI Surgeries/Procedures: EXPLORATORY LAP 10 YEARS AGO, SPLENECTOMY AT THAT TIME ALSO Neurological Surgical History: Reports: Spinal Fusion Musculoskeletal Surgical History: Reports: Other (See Below) Other Musculoskeletal Surgeries/Procedures:: RODS IN LOW BACK AND HARDWARE IN RIGHT ANKLE Social & Family History - Family History Family Medical History: Noncontributory - Tobacco Use Smoking Status *Q: Never Smoker - Caffeine Use Caffeine Use: Reports: None - Living Situation & Occupation Living situation: Reports: , with Family Occupation: Disabled ED ROS GENERAL - Review of Systems Review Of Systems: See Below Constitutional: Reports: No Symptoms HEENT: Reports: No Symptoms Respiratory: Reports: Shortness of Breath Cardiovascular: Reports: No Symptoms Endocrine: Reports: No Symptoms GI/Abdominal: Reports: Abdominal Pain, Other ( Pt feels very distended. ) : Reports: No Symptoms Musculoskeletal: Reports: No Symptoms Skin: Reports: No Symptoms ED EXAM, GENERAL - Physical Exam Exam: See Below Free Text/Narrative:: Pt arrived with a distended abdoman and a total body rash. Exam Limited By: Uncooperative General Appearance: Anxious, Moderate Distress Ears: Normal TMs Nose: Normal Inspection Throat/Mouth: Normal Inspection Head: Atraumatic Neck: Normal Inspection Respiratory/Chest: No Respiratory Distress Cardiovascular: Regular Rate, Rhythm GI/Abdominal: Other ( firm and tender. ) (Male) Exam: Deferred, Other ( Pt has a very large swollen rt testicle. This started when he first started getting chemo. ) Rectal (Males) Exam: Deferred Back Exam: Normal Inspection Extremities: Normal Inspection Neurological: Alert, Oriented, Normal Cognition Psychiatric: Anxious Skin Exam: Other ( Pt has total body rash which is very itchy. ) Course - Vital Signs Last Recorded V/S: Last Vital Signs Temp 36.6 C 05/22/18 11:13 Pulse 70 05/22/18 11:13 Resp 11 L 05/22/18 11:13 BP 119/72 05/22/18 11:13 Pulse Ox 98 05/22/18 11:13 - Orders/Labs/Meds Orders: Active Orders 24 hr Category Date Time Status CULTURE BLOOD [BC] Urgent Lab 05/22/18 13:44 Ordered CULTURE BLOOD [BC] Urgent Lab 05/22/18 13:44 Ordered Iopamidol [Isovue-300 (61%)] Med 05/22/18 11:45 Active 100 ml IV . DIRECTED Sodium Chloride 0.9% [Normal Saline] 1,000 ml Med 05/22/18 12:30 Active IV ASDIRECTED Sodium Chloride 0.9% [Normal Saline] 70 ml Med 05/22/18 11:45 Active IV ASDIRECTED Blood Culture x2 Reflex Set [OM.PC] Urgent Oth 05/22/18 13:44 Ordered Medication Orders Sodium Chloride (Normal Saline) 70 mls @ 3 mls/sec IV ASDIRECTED [facility]IG[facility] Last Admin: 05/22/18 12:11 Dose: 3 mls/sec Sodium Chloride (Normal Saline) 1,000 mls @ 400 mls/hr IV ASDIRECTED [facility] Last Admin: 05/22/18 12:22 Dose: 400 mls/hr Iopamidol (Isovue-300 (61%)) 100 ml IV . DIRECTED [facility] Last Admin: 05/22/18 12:10 Dose: 100 ml Labs: Laboratory Tests 05/22/18 05/22/18 05/22/18 Range/Units 11:43 11:43 11:43 WBC 37.9 H* (4.5-11.0) K/uL RBC 3.30 L (4.30-5.90) M/uL Hgb 10.2 L (12.0-15.0) g/dL Hct 30.7 L (40.0-54.0) % MCV 93 (80-98) fL MCH 31 (27-31) pg MCHC 33 (32-36) % Plt Count 307 (150-400) K/uL Add Manual Diff Yes Neutrophils % (Manual) 96 H (36-66) % Band Neutrophils % 2 L (5-11) % Lymphocytes % (Manual) 2 L (24-44) % PT (9.5-12.0) sec INR (0.80-1.20) Sodium 140 (140-148) mmol/L Potassium 4.2 (3.6-5.2) mmol/L Chloride 106 (100-108) mmol/L Carbon Dioxide 21 (21-32) mmol/L Anion Gap 12.6 (5.0-14.0) mmol/L BUN 18 D (7-18) mg/dL Creatinine 0.6 L (0.8-1.3) mg/dL Est Cr Clr Drug Dosing 127.01 mL/min Estimated GFR (MDRD) > 60 (>60) Glucose 127 H (74-106) mg/dL Calcium 7.8 L (8.5-10.1) mg/dL Total Bilirubin 1.3 H (0.2-1.0) mg/dL AST 43 H (15-37) U/L ALT 40 (12-78) U/L Alkaline Phosphatase 343 H (46-116) U/L Total Protein 5.3 L (6.4-8.2) g/dL Albumin 1.8 L (3.4-5.0) g/dL Globulin 3.5 (2.3-3.5) g/dL Albumin/Globulin Ratio 0.5 L (1.2-2.2) Amylase 15 L D (25-115) U/L Lipase 56 L (73-393) U/L 05/22/18 Range/Units 13:39 WBC (4.5-11.0) K/uL RBC (4.30-5.90) M/uL Hgb (12.0-15.0) g/dL Hct (40.0-54.0) % MCV (80-98) fL MCH (27-31) pg MCHC (32-36) % Plt Count (150-400) K/uL Add Manual Diff Neutrophils % (Manual) (36-66) % Band Neutrophils % (5-11) % Lymphocytes % (Manual) (24-44) % PT 32.8 H (9.5-12.0) sec INR 3.18 H (0.80-1.20) Sodium (140-148) mmol/L Potassium (3.6-5.2) mmol/L Chloride (100-108) mmol/L Carbon Dioxide (21-32) mmol/L Anion Gap (5.0-14.0) mmol/L BUN (7-18) mg/dL Creatinine (0.8-1.3) mg/dL Est Cr Clr Drug Dosing mL/min Estimated GFR (MDRD) (>60) Glucose (74-106) mg/dL Calcium (8.5-10.1) mg/dL Total Bilirubin (0.2-1.0) mg/dL AST (15-37) U/L ALT (12-78) U/L Alkaline Phosphatase (46-116) U/L Total Protein (6.4-8.2) g/dL Albumin (3.4-5.0) g/dL Globulin (2.3-3.5) g/dL Albumin/Globulin Ratio (1.2-2.2) Amylase (25-115) U/L Lipase (73-393) U/L Meds: Medications Generic Name Dose Route Start Last Admin Trade Name Freq PRN Reason Stop Dose Admin Sodium Chloride 70 mls @ 3 mls/sec 05/22/18 11:45 05/22/18 12:11 Normal Saline IV 3 mls/sec ASDIRECTED HIGINIO Administration Sodium Chloride 1,000 mls @ 400 mls/hr 05/22/18 12:30 05/22/18 12:22 Normal Saline IV 400 mls/hr ASDIRECTED HIGINIO Administration Iopamidol 100 ml 05/22/18 11:45 05/22/18 12:10 Isovue-300 (61%) IV 100 ml . DIRECTED HIGINIO Administration Discontinued Medications Generic Name Dose Route Start Last Admin Trade Name Jennifer PRN Reason Stop Dose Admin Diphenhydramine HCl 25 mg 05/22/18 11:57 05/22/18 12:02 Benadryl IVPUSH 05/22/18 11:58 25 mg ONETIME ONE Administration Hydromorphone HCl 1 mg 05/22/18 11:36 05/22/18 11:53 Dilaudid IVPUSH 05/22/18 11:37 1 mg ONETIME ONE Administration Ondansetron HCl 4 mg 05/22/18 11:36 05/22/18 11:53 Zofran IVPUSH 05/22/18 11:37 4 mg ONETIME ONE Administration Phytonadione 2.5 mg 05/22/18 13:58 Aquamephyton PO 05/22/18 13:59 ONETIME ONE Sodium Chloride 10 ml 05/22/18 11:39 05/22/18 12:10 Saline Flush FLUSH 05/22/18 11:40 10 ml ONETIME ONE Administration Triamcinolone Acetonide 60 mg 05/22/18 13:38 05/22/18 13:52 Kenalog-40 IM 05/22/18 13:39 60 mg ASDIRECTED ONE Administration - Re-Assessments/Exams Free Text/Narrative Re-Assessment/Exam: 05/22/18 13:45 cat scan shows a mod to large amount of acetes. His wbc is most likely related to the neurlasta. will obtain blood cultures to avoid missing a infectious issue. 05/22/18 13:46 The rash is questionable in terms of what this is from, will give a kenalog injection. Pt will use benadryl from the itching. 05/22/18 13:59 pt has a INR greater than 3. He was given vit k 2.5 mg. He will return to out pt tomorrow and Dr Velarde will see him and tap some of the fluid off. The coumadin is on board because of a portal clot. Departure - Departure Time of Disposition: 14:01 Disposition: Home, Self-Care 01 Condition: Fair Clinical Impression: Ascites, Rash in adult Pancreatic cancer Qualifiers: Pancreatic malignancy location: unspecified Qualified Code(s): C25.9 - Malignant neoplasm of pancreas, unspecified - Discharge Information Referrals: Hema Mcnally MD [Primary Care Provider] - Forms: ED Department Discharge Care Plan Goals: rtc to outpt tomorrow at 8 am, US of the abdoman to localize the fluid for tapping. Dr Velarde will tap the abdoman, repeat INR tomorrow. benadryl 25 mg q4h as needed for itching. - My Orders Last 24 Hours: My Active Orders 05/22/18 11:45 Iopamidol [Isovue-300 (61%)] 100 ml IV . DIRECTED Sodium Chloride 0.9% [Normal Saline] 70 ml IV ASDIRECTED 05/22/18 12:30 Sodium Chloride 0.9% [Normal Saline] 1,000 ml IV ASDIRECTED 05/22/18 13:44 CULTURE BLOOD [BC] Urgent CULTURE BLOOD [BC] Urgent Blood Culture x2 Reflex Set [OM.PC] Urgent - Assessment/Plan Last 24 Hours: My Active Orders 05/22/18 11:45 Iopamidol [Isovue-300 (61%)] 100 ml IV . DIRECTED Sodium Chloride 0.9% [Normal Saline] 70 ml IV ASDIRECTED 05/22/18 12:30 Sodium Chloride 0.9% [Normal Saline] 1,000 ml IV ASDIRECTED 05/22/18 13:44 CULTURE BLOOD [BC] Urgent CULTURE BLOOD [BC] Urgent Blood Culture x2 Reflex Set [OM.PC] Urgent
[2018-05-22] MEDS ORDERED: Ondansetron 4 MG/2 ML SDV IVPUSH ONE (11:36)
[2018-05-22] MEDS ORDERED: HYDROmorphone 1 MG/ML Syringe IVPUSH ONE (11:36)
[2018-05-22] MEDS ORDERED: Iopamidol 612 MG/ML 100 ML Bottle IV SCH (11:45)
[2018-05-22] MEDS ORDERED: diphenhydrAMINE 50 MG/ML SDV IVPUSH ONE (11:57)
[2018-05-22] MEDS: Sodium Chloride 0.9% 10 ML Syringe FLUSH ONE ×2 (12:03→12:10)
[2018-05-22] MEDS ORDERED: Sodium Chloride 0.9% 1,000 ML IV SCH (12:30)
--- NOTE | 2018-05-22 12:53 | CRLCR ---
Indication: Shortness of breath. Distended abdomen. Technique: A single AP portable view of the chest was obtained. Comparison: January 24, 2018. Findings: The right hemidiaphragm is elevated. A right-sided Port-A-Cath is seen. Heart is normal in size. No infiltrate, pleural effusion, or pneumothorax is identified. Impression: No acute cardiopulmonary process. Dictated by Jazmin Vargas MD @ May 22 2018 12:51PM Signed by Dr. Jazmin Vargas @ May 22 2018 12:52PM
--- NOTE | 2018-05-22 13:18 | CRLCT ---
Indication: Distended abdomen. Technique: Multiple contiguous axial images were obtained from the lung bases is symphysis pubis after the intravenous administration of 100 milliliters Isovue-300. Please note that all CT scans at this facility use dose modulation, iterative reconstruction, and/or weight-based dosing when appropriate to reduce radiation dose to as low as reasonably achievable. Comparison: March 12, 2018. Findings: A trace left pleural effusion is identified. The heart is normal in size. No pericardial effusion is identified. Multiple hepatic metastases are identified. These have significantly increased in size and number. The gallbladder, spleen, adrenals, and kidneys are grossly normal. No hydronephrosis is identified. No intrahepatic biliary ductal dilatation is identified. A large necrotic pancreatic body mass is identified. This currently measures approximately 8.8 x 5.4 cm in size. This has increased in size. In the pelvis, probable thickening of the wall of the urinary bladder is identified. The prostate gland is grossly normal. The small and large bowel are normal in caliber. There is questionable diffuse thickening of the wall of the intestines. The aorta is normal in caliber. No free air is identified within the abdomen or pelvis. The amount of free fluid has significantly increased since the previous exam. Postoperative changes of the thoraco lumbar spine are identified. No definite lytic or blastic lesions are identified. Impression: Necrotic pancreatic mass, consistent with the patient`s known history of pancreatic cancer. This is increased in size. Multiple low-density lesions identified within liver, consistent with metastases, increased in size and number since the previous exam. Moderate to large amount of ascites, significantly increased since the previous exam. Questionable thickening of the wall of the small and large bowel, which may be reactive. Please note that all CT scans at this facility use dose modulation, iterative reconstruction, and/or weight-based dosing when appropriate to reduce radiation dose to as low as reasonably achievable. Dictated by Jazmin Vargas MD @ May 22 2018 12:53PM Signed by Dr. Jazmin Vargas @ May 22 2018 1:17PM
[2018-05-22] MEDS ORDERED: Triamcinolone Acetonide 40 MG/ML 1 ML MDV IM ONE (13:38)
[2018-05-22] MEDS ORDERED: Phytonadione ORAL 5mg/5ml Soln Simple Syrup U/D PO ONE (13:58)
== END 2018-05-22 14:26 | disposition home or self-care (01) ==
LOC: JP.ED 10:44
DX: R21 Rash and other nonspecific skin eruption (principal); R18.8 Other ascites; C25.9 Malignant neoplasm of pancreas, unspecified; I10 Essential (primary) hypertension; Z79.01 Long term (current) use of anticoagulants; Z79.899 Other long term (current) drug therapy; Z91.09 Other allergy status, other than to drugs and biological substances; Z88.6 Allergy status to analgesic agent; Z88.1 Allergy status to other antibiotic agents
CPT/HCPCS: 36415; 71045; 74177; 80053; 82150; 83690; 85025; 85610; 87040; 96361; 96372; 96374; 96375; 99285-25; A9270-GY; J1170; J1200; J2405; J3301; J7030; Q9967

== ENCOUNTER 2018-05-26 13:52 | Emergency (ER) | payer MEDICARE, OTHER ==
--- NOTE | 2018-05-26 14:47 | EDM.PDOC ---
<Elza Mckinney - Last Filed: 05/26/18 17:48> ED HPI GENERAL MEDICAL PROBLEM - General Chief Complaint: Genitourinary Problem Stated Complaint: BLOOD IN URINE Time Seen by Provider: 05/26/18 14:30 - Related Data Allergies Allergy/AdvReac Type Severity Reaction Status Date / Time adhesive Allergy Intermediate Rash Verified 05/26/18 14:07 ciprofloxacin [From Cipro] Allergy Rash Verified 05/26/18 14:07 levofloxacin [From Levaquin] Allergy Rash Verified 05/26/18 14:07 oxycodone HCl [From Tylox] Allergy Rash Verified 05/26/18 14:07 Home Meds: Home Meds Atenolol [Tenormin] 50 mg PO DAILY 02/04/13 [History] Cyclobenzaprine HCl [Flexeril] 20 mg PO BEDTIME 02/04/13 [History] Gabapentin [Neurontin] 300 mg PO BID 01/24/18 [History] Loperamide [Imodium] 4 mg PO Q6HR PRN 02/21/18 [History] Loratadine [Claritin] 10 mg PO BEDTIME 03/06/18 [History] Melatonin 20 mg PO BEDTIME 03/06/18 [History] Warfarin [Coumadin] 2.5 mg PO DAILY 03/06/18 [History] Hyoscyamine [Hyomax-SL] 0.125 mg SL Q4H PRN #20 tab.sl 03/08/18 [Rx] Lactobacillus Acidophilus [Acidophilus Lactobacilli] 1 each PO BID #60 capsule 03/08/18 [Rx] Hyoscyamine Sulfate 1 tab PO DAILY 03/12/18 [History] HYDROmorphone [Dilaudid] 8 mg PO Q3H PRN #200 tablet 03/15/18 [Rx] fentaNYL [Duragesic] 12 mcg TD Q72H #5 patch 03/15/18 [Rx] fentaNYL [Duragesic] 25 mg TRDERM Q72H #5 patch.td72 03/15/18 [Rx] Diphenhyd/Lidocaine/Nystatin [First-Bxn Mouthwash] 5 ml SSWAL QID #240 ml [Rx] Cephalexin [Keflex] 500 mg PO QID 05/26/18 [History] Course - Vital Signs Last Recorded V/S: Last Vital Signs Temp 37.2 C 05/26/18 17:36 Pulse 70 05/26/18 17:36 Resp 16 05/26/18 17:36 BP 122/73 05/26/18 17:36 Pulse Ox 100 05/26/18 17:36 - Orders/Labs/Meds Orders: Active Orders 24 hr Category Date Time Status Bladder Scan [RC] ASDIRECTED Care 05/26/18 16:08 Active CULTURE URINE [RM] Stat Lab 05/26/18 15:57 Received Sodium Chloride 0.9% [Normal Saline] 1,000 ml Med 05/26/18 16:15 Active IV ASDIRECTED Sodium Chloride 0.9% [Normal Saline] 1,000 ml Med 05/26/18 17:30 Active IV ASDIRECTED Medication Orders Sodium Chloride (Normal Saline) 1,000 mls @ 999 mls/hr IV ASDIRECTED HIGINIO Last Admin: 05/26/18 16:22 Dose: 999 mls/hr Sodium Chloride (Normal Saline) 1,000 mls @ 999 mls/hr IV ASDIRECTED HIGINIO Last Admin: 05/26/18 17:50 Dose: 999 mls/hr Labs: Laboratory Tests 05/26/18 05/26/18 05/26/18 Range/Units 14:08 14:37 14:37 WBC 12.4 H (4.5-11.0) K/uL RBC 2.95 L (4.30-5.90) M/uL Hgb 8.6 L (12.0-15.0) g/dL Hct 27.9 L (40.0-54.0) % MCV 95 (80-98) fL MCH 29 (27-31) pg MCHC 31 L (32-36) % Plt Count 95 L (150-400) K/uL Add Manual Diff Yes Neutrophils % (Manual) 82 H (36-66) % Band Neutrophils % 3 L (5-11) % Lymphocytes % (Manual) 3 L (24-44) % Monocytes % (Manual) 12 H (2-6) % PT 22.5 H (9.5-12.0) sec INR 2.14 H (0.80-1.20) APTT 45.0 H (27.0-36.0) sec Uric Acid (3.5-7.2) mg/dL Urine Color Red Urine Appearance Cloudy Urine pH 5.0 (4.5-8.0) Ur Specific [place] 1.020 (1.008-1.030) Urine Protein 100 H (NEGATIVE) mg/dL Urine Glucose (UA) Normal (NEGATIVE) mg/dL Urine Ketones Negative (NEGATIVE) mg/dL Urine Occult Blood Large (NEGATIVE) Urine Nitrite Negative (NEGAITVE) Urine Bilirubin Negative (NEGATIVE) Urine Urobilinogen 4 (NORMAL) mg/dL Ur Leukocyte Esterase Negative (NEGATIVE) Urine RBC Packed H (0-5) Urine WBC 5-10 H (0-5) Ur Epithelial Cells Not seen Amorphous Sediment Not seen Urine Bacteria Not seen Urine Mucus Not seen 05/26/18 Range/Units 15:41 WBC (4.5-11.0) K/uL RBC (4.30-5.90) M/uL Hgb (12.0-15.0) g/dL Hct (40.0-54.0) % MCV (80-98) fL MCH (27-31) pg MCHC (32-36) % Plt Count (150-400) K/uL Add Manual Diff Neutrophils % (Manual) (36-66) % Band Neutrophils % (5-11) % Lymphocytes % (Manual) (24-44) % Monocytes % (Manual) (2-6) % PT (9.5-12.0) sec INR (0.80-1.20) APTT (27.0-36.0) sec Uric Acid 3.4 L (3.5-7.2) mg/dL Urine Color Urine Appearance Urine pH (4.5-8.0) Ur Specific [place] (1.008-1.030) Urine Protein (NEGATIVE) mg/dL Urine Glucose (UA) (NEGATIVE) mg/dL Urine Ketones (NEGATIVE) mg/dL Urine Occult Blood (NEGATIVE) Urine Nitrite (NEGAITVE) Urine Bilirubin (NEGATIVE) Urine Urobilinogen (NORMAL) mg/dL Ur Leukocyte Esterase (NEGATIVE) Urine RBC (0-5) Urine WBC (0-5) Ur Epithelial Cells Amorphous Sediment Urine Bacteria Urine Mucus Meds: Medications Generic Name Dose Route Start Last Admin Trade Name Freq PRN Reason Stop Dose Admin Sodium Chloride 1,000 mls @ 999 mls/hr 05/26/18 16:15 05/26/18 16:22 Normal Saline IV 999 mls/hr ASDIRECTED HIGINIO Administration Sodium Chloride 1,000 mls @ 999 mls/hr 05/26/18 17:30 05/26/18 17:50 Normal Saline IV 999 mls/hr ASDIRECTED HIGINIO Administration Discontinued Medications Generic Name Dose Route Start Last Admin Trade Name Jennifer PRN Reason Stop Dose Admin Hydromorphone HCl 0.5 mg 05/26/18 16:06 05/26/18 16:25 Dilaudid IVPUSH 05/26/18 16:07 0.5 mg ONETIME ONE Administration Clindamycin Phosphate 600 mg/ 54 mls @ 100 mls/hr 05/26/18 16:15 05/26/18 16: 23 Sodium Chloride IV 05/26/18 16:47 100 mls/hr ONETIME ONE Administration - Re-Assessments/Exams Free Text/Narrative Re-Assessment/Exam: 05/26/18 17:31 pt has a elevated ptt and his inr is 2.14. His platlets are 95. He is having gross hematuria. He did void a couple of times since he has been here. He does not have clots. He has a swollen rt lower arm which is hot nd is very tender, He had a US of the arm which did not reveal any clots. He has a wbc of 12,000. He has a normal uric acid. His last cat scan which was done on Wednesday showed some bladder thickening. A culture was set up on the urine. Departure - Departure Disposition: Home, Self-Care 01 Condition: Fair Clinical Impression: Cellulitis of right arm, Dehydration Cancer of pancreas Qualifiers: Pancreatic malignancy location: unspecified Qualified Code(s): C25.9 - Malignant neoplasm of pancreas, unspecified Anemia Qualifiers: Anemia type: unspecified type Qualified Code(s): D64.9 - Anemia, unspecified - Discharge Information Instructions: Cellulitis, Adult, [id number], Hematuria, Adult Referrals: Hema Mcnally MD [Primary Care Provider] - Forms: ED Department Discharge Care Plan Goals: push fluids, rtc sat am to er for recheck on the cellulitis, rtc if difficulty voiding will notify of results of urine culture, recheck hematuria on sat. clindomycin 300mg tid. stop keflex. moist warm packs to the celluliis area. While on the clindomycin pt should use a probiotic or alot of yogurt. Call to see if you can get in to see Dr. Mcnally tomorrow late afternoon, if you can't then you are welcome to follow up here as discussed with Dr. Mckinney.l <PatriciaLynda - Last Filed: 05/26/18 18:06> ED HPI GENERAL MEDICAL PROBLEM - History of Present Illness INITIAL COMMENTS - FREE TEXT/NARRATIVE: Ricardo Estrella is a 52 year old male who reports to the E.D. with concerns of gross hematuria and cellulitis of the right arm. He states he noticed blood in his urine at 10AM this morning. He denies dysuria, urgency and frequency. He is not sure if he has had a fever. He indicates being seen in the clinic 1 week ago and was diagnosed with a UTI and started as well as finished Macrobid. He stated that he went to the clinic 1 day ago and was diagnosed with cellulitis of the right distal forearm. He was prescribe Keflex. There is a barely noticeable marked area of erythema with a black marker. Today the redness is very mild but does extend above the marked line, across the dorsal side of his forearm. There is also moderate notable swelling across the dorsal aspect of his hand and forearm. Right Lower Arm Pain Score (Numeric/FACES): 10 Past Medical History HEENT History: Reports: None Cardiovascular History: Reports: Hypertension Gastrointestinal History: Reports: None Other Gastrointestinal History: cancer pancreas and liver, new mass in R small bowel Musculoskeletal History: Reports: Osteoarthritis Neurological History: Reports: Concussion Other Neuro History: TBI Psychiatric History: Reports: Depression Hematologic History: Reports: Anticoagulation Therapy, Blood Transfusion(s) Immunologic History: Reports: Other (See Below) Other Immunologic History: Pancreatic CA with mets. chemo treatment Oncologic (Cancer) History: Reports: Liver, Metastatic, Pancreatic Other Oncologic History: small bowel Dermatologic History: Reports: Other (See Below) Other Dermatologic History: new rash ? from fentanyl patches - Infectious Disease History Infectious Disease History: Reports: Chicken Pox, MRSA - Past Surgical History HEENT Surgical History: Reports: Other (See Below) Other HEENT Surgeries/Procedures: metal taken out of eye, deviated septum GI Surgical History: Reports: Hernia, Abdominal, Other (See Below) Other GI Surgeries/Procedures: EXPLORATORY LAP 10 YEARS AGO, SPLENECTOMY AT THAT TIME ALSO Neurological Surgical History: Reports: Spinal Fusion Musculoskeletal Surgical History: Reports: Other (See Below) Other Musculoskeletal Surgeries/Procedures:: RODS IN LOW BACK AND HARDWARE IN RIGHT ANKLE Social & Family History - Family History Family Medical History: Noncontributory - Tobacco Use Smoking Status *Q: Never Smoker - Caffeine Use Caffeine Use: Reports: None - Recreational Drug Use Recreational Drug Use: No - Living Situation & Occupation Living situation: Reports: , with Family Occupation: Disabled ED ROS GENERAL - Review of Systems Review Of Systems: ROS reveals no pertinent complaints other than HPI. ED EXAM, RENAL/ - Physical Exam Exam: See Below Text/Narrative:: 1.5 hours later, the cellulitic area became progressively more erythematous and warm to the touch. It encompassed the dorsal aspect of his forearm. When performing passive ROM it caused him significant pain. Swelling is notable across the dorsal hand and forearm. His temperature increased from 96.8 to 99 degrees Fahrenheit. Head: Atraumatic, Normocephalic Neck: Normal Inspection Respiratory/Chest: No Respiratory Distress, No Accessory Muscle Use Cardiovascular: Regular Rate, Rhythm GI/Abdominal: Normal Bowel Sounds, Non-Tender, Distended Extremities: Normal Inspection, No Pedal Edema. No: Joint Swelling, Leg Pain Neurological: Alert, Oriented Psychiatric: Normal Affect, Normal Mood Skin Exam: Other (Moderate swelling noted on right hand and arm. Very minimal erythema on dorsal aspect of forearm.) Course - Orders/Labs/Meds Meds: Medications Generic Name Dose Route Start Last Admin Trade Name Freq PRN Reason Stop Dose Admin Sodium Chloride 1,000 mls @ 999 mls/hr 05/26/18 16:15 05/26/18 16:22 Normal Saline IV 999 mls/hr ASDIRECTED HIGINIO Administration Sodium Chloride 1,000 mls @ 999 mls/hr 05/26/18 17:30 05/26/18 17:50 Normal Saline IV 999 mls/hr ASDIRECTED HIGINIO Administration Discontinued Medications Generic Name Dose Route Start Last Admin Trade Name Freq PRN Reason Stop Dose Admin Hydromorphone HCl 0.5 mg 05/26/18 16:06 05/26/18 16:25 Dilaudid IVPUSH 05/26/18 16:07 0.5 mg ONETIME ONE Administration Clindamycin Phosphate 600 mg/ 54 mls @ 100 mls/hr 05/26/18 16:15 05/26/18 16: 23 Sodium Chloride IV 05/26/18 16:47 100 mls/hr ONETIME ONE Administration <Dane Romeo G - Last Filed: 05/26/18 18:44> Departure - Departure Time of Disposition: 19:00 - Discharge Information *PRESCRIPTION DRUG MONITORING PROGRAM REVIEWED*: No *COPY OF PRESCRIPTION DRUG MONITORING REPORT IN PATIENT FABIO: No
[2018-05-26] MEDS ORDERED: HYDROmorphone 0.5 MG/0.5 ML Syringe IVPUSH ONE (16:06)
--- NOTE | 2018-05-26 16:09 | CRLUS ---
INDICATION: Right arm and hand swelling TECHNIQUE: Ultrasound venous duplex upper right extremity. Compression venous exam was performed using aguayo scale, color Doppler, and spectral Doppler imaging. COMPARISON: None FINDINGS: The right internal jugular, subclavian, and axillary veins are patent with normal waveforms. The brachial, basilic, and cephalic veins are fully compressible. No soft tissue abnormalities seen. IMPRESSION: Normal ultrasound of the right upper extremity veins. Dictated by Hema Ledesma MD @ 05/26/2018 4:08:30 PM Dictated by: Hema Ledesma MD @ 05/26/2018 16:08:37 (Electronically Signed)
[2018-05-26] MEDS ORDERED: Sodium Chloride 0.9% 1,000 ML IV SCH ×2 (16:15→17:30)
[2018-05-26 17:36] VITALS: BP 122/73
== END 2018-05-26 19:08 | disposition home or self-care (01) ==
LOC: JP.ED 13:52
DX: L03.113 Cellulitis of right upper limb (principal); D64.9 Anemia, unspecified; E86.0 Dehydration; C25.9 Malignant neoplasm of pancreas, unspecified; Z79.899 Other long term (current) drug therapy; Z91.09 Other allergy status, other than to drugs and biological substances; Z88.1 Allergy status to other antibiotic agents; Z88.6 Allergy status to analgesic agent; M79.89 Other specified soft tissue disorders
CPT/HCPCS: 36415; 51798; 81001; 84550; 85025; 85610; 85730; 87086; 87088; 87186; 93971-RT; 96361; 96365; 96375; 99284; 99284-25; J1170; J3490; J7030; J7050

== ENCOUNTER 2018-06-10 15:04 | Emergency (ER) | payer MEDICARE, OTHER ==
[2018-06-10] MEDS ORDERED: Lidocaine 2% Jelly 10 ML Urojet ONE (15:07)
[2018-06-10] MEDS ORDERED: Sodium Chloride 0.9% 1,000 ML IV SCH ×2 (16:00→17:00)
--- NOTE | 2018-06-10 16:07 | EDM.PDOC ---
ED HPI GENERAL MEDICAL PROBLEM - General Chief Complaint: Genitourinary Problem Stated Complaint: UTI SYMPTOMS Time Seen by Provider: 06/10/18 16:01 Source of Information: Reports: Patient History Limitations: Reports: No Limitations - History of Present Illness INITIAL COMMENTS - FREE TEXT/NARRATIVE: pt is not able to empty his bladder. He has been going in very small amounts. He has been off of antibiotics for several days. He is now pass ing urine which is blood tinged and he will occassionally pass a good sized clot. He has difficulty voiding at the time that he is passing the clot. Onset: Gradual Duration: Day(s): Associated Symptoms: Reports: No Other Symptoms - Related Data Allergies Allergy/AdvReac Type Severity Reaction Status Date / Time adhesive Allergy Intermediate Rash Verified 06/10/18 16:06 ciprofloxacin [From Cipro] Allergy Rash Verified 06/10/18 16:06 levofloxacin [From Levaquin] Allergy Rash Verified 06/10/18 16:06 oxycodone HCl [From Tylox] Allergy Rash Verified 06/10/18 16:06 Home Meds: Home Meds Atenolol [Tenormin] 50 mg PO DAILY 02/04/13 [History] Cyclobenzaprine HCl [Flexeril] 20 mg PO BEDTIME 02/04/13 [History] Gabapentin [Neurontin] 300 mg PO BID 01/24/18 [History] Loperamide [Imodium] 4 mg PO Q6HR PRN 02/21/18 [History] Loratadine [Claritin] 10 mg PO BEDTIME 03/06/18 [History] Melatonin 20 mg PO BEDTIME 03/06/18 [History] Warfarin [Coumadin] 2.5 mg PO DAILY 03/06/18 [History] Hyoscyamine [Hyomax-SL] 0.125 mg SL Q4H PRN #20 tab.sl 03/08/18 [Rx] Lactobacillus Acidophilus [Acidophilus Lactobacilli] 1 each PO BID #60 capsule 03/08/18 [Rx] Hyoscyamine Sulfate 1 tab PO DAILY 03/12/18 [History] HYDROmorphone [Dilaudid] 8 mg PO Q3H PRN #200 tablet 03/15/18 [Rx] fentaNYL [Duragesic] 12 mcg TD Q72H #5 patch 03/15/18 [Rx] Diphenhyd/Lidocaine/Nystatin [First-Bxn Mouthwash] 5 ml SSWAL QID #240 ml [Rx] Diphenoxylate HCl/Atropine [Lomotil] 1 tab PO QID PRN 06/06/18 [History] Ondansetron [Zofran ODT] 4 mg PO Q8HR PRN 06/06/18 [History] Prochlorperazine [Compazine] 10 mg PO Q6HR PRN 06/06/18 [History] fentaNYL [Duragesic] 25 mcg TRDERM Q72H 06/08/18 [History] Past Medical History HEENT History: Reports: None Cardiovascular History: Reports: Hypertension Gastrointestinal History: Reports: None Other Gastrointestinal History: cancer pancreas and liver, new mass in R small bowel Musculoskeletal History: Reports: Osteoarthritis Neurological History: Reports: Concussion Other Neuro History: TBI Psychiatric History: Reports: Depression Hematologic History: Reports: Anticoagulation Therapy, Blood Transfusion(s) Immunologic History: Reports: Other (See Below) Other Immunologic History: Pancreatic CA with mets. chemo treatment Oncologic (Cancer) History: Reports: Liver, Metastatic, Pancreatic Other Oncologic History: small bowel Dermatologic History: Reports: Other (See Below) Other Dermatologic History: new rash ? from fentanyl patches - Infectious Disease History Infectious Disease History: Reports: Chicken Pox, MRSA - Past Surgical History HEENT Surgical History: Reports: Other (See Below) Other HEENT Surgeries/Procedures: metal taken out of eye, deviated septum GI Surgical History: Reports: Hernia, Abdominal, Other (See Below) Other GI Surgeries/Procedures: EXPLORATORY LAP 10 YEARS AGO, SPLENECTOMY AT THAT TIME ALSO Neurological Surgical History: Reports: Spinal Fusion Musculoskeletal Surgical History: Reports: Other (See Below) Other Musculoskeletal Surgeries/Procedures:: RODS IN LOW BACK AND HARDWARE IN RIGHT ANKLE Social & Family History - Family History Family Medical History: Noncontributory - Caffeine Use Caffeine Use: Reports: None - Living Situation & Occupation Living situation: Reports: , with Family Occupation: Disabled ED ROS GENERAL - Review of Systems Review Of Systems: See Below Constitutional: Reports: No Symptoms HEENT: Reports: No Symptoms Respiratory: Reports: No Symptoms Cardiovascular: Reports: No Symptoms Endocrine: Reports: No Symptoms GI/Abdominal: Reports: No Symptoms : Reports: Dysuria, Hematuria, Other ( difficulty voiding. ) Musculoskeletal: Reports: No Symptoms ED EXAM, RENAL/ - Physical Exam Exam: See Below Text/Narrative:: Pt arrived with a history of having difficulty voidiong. He has been passing blood in his urine off and on. He is on coumadin. Exam Limited By: No Limitations General Appearance: Alert, Anxious, Mild Distress Ears: Normal TMs Nose: Normal Inspection Throat/Mouth: Normal Inspection Head: Atraumatic Neck: Normal Inspection Respiratory/Chest: No Respiratory Distress Cardiovascular: Regular Rate, Rhythm (Male) Exam: Other (pt had a bladder scan at the clinic which showed 345 ) Rectal (Males) Exam: Deferred Back Exam: Normal Inspection Extremities: Normal Inspection Neurological: Alert, Oriented, Normal Cognition Course - Vital Signs Last Recorded V/S: Last Vital Signs Temp 35.7 C 06/10/18 18:38 Pulse 60 06/10/18 19:28 Resp 18 06/10/18 19:28 BP 119/78 06/10/18 19:28 Pulse Ox 100 06/10/18 19:28 - Orders/Labs/Meds Labs: Laboratory Tests 06/10/18 06/10/18 06/10/18 Range/Units 15:57 15:57 16:30 WBC 10.0 (4.5-11.0) K/uL RBC 2.56 L (4.30-5.90) M/uL Hgb 7.5 L (12.0-15.0) g/dL Hct 24.3 L (40.0-54.0) % MCV 95 (80-98) fL MCH 29 (27-31) pg MCHC 31 L (32-36) % Plt Count 255 (150-400) K/uL Neut % (Auto) 76 H (36-66) % Lymph % (Auto) 8 L (24-44) % [place] % (Auto) 11 H (2-6) % Eos % (Auto) 4 (2-4) % Baso % (Auto) 1 (0-1) % PT 16.4 H (9.5-12.0) sec INR 1.53 H (0.80-1.20) Sodium 133 L (140-148) mmol/L Potassium 4.2 (3.6-5.2) mmol/L Chloride 102 (100-108) mmol/L Carbon Dioxide 21 (21-32) mmol/L Anion Gap 14.2 H (5.0-14.0) mmol/L BUN 21 H (7-18) mg/dL Creatinine 1.2 D (0.8-1.3) mg/dL Est Cr Clr Drug Dosing 60.95 mL/min Estimated GFR (MDRD) > 60 (>60) Glucose 99 (74-106) mg/dL Calcium 8.2 L (8.5-10.1) mg/dL Meds: Medications Discontinued Medications Generic Name Dose Route Start Last Admin Trade Name Jennifer PRN Reason Stop Dose Admin Hydromorphone HCl 1 mg 06/10/18 18:37 06/10/18 18:43 Dilaudid IVPUSH 06/10/18 18:38 1 mg ONETIME ONE Administration Sodium Chloride 1,000 mls @ 999 mls/hr 06/10/18 16:00 06/10/18 16:26 Normal Saline IV 999 mls/hr ASDIRECTED HIGINIO Administration Ceftriaxone Sodium 1 gm/ 50 mls @ 100 mls/hr 06/10/18 16:48 06/10/18 17:40 Sodium Chloride IV 06/10/18 17:17 Not Given ONETIME ONE Sodium Chloride 1,000 mls @ 999 mls/hr 06/10/18 17:00 06/10/18 17:39 Normal Saline IV 999 mls/hr ASDIRECTED HIGINIO Administration Ceftriaxone Sodium 1 gm/ 50 mls @ 100 mls/hr 06/10/18 17:30 06/10/18 17:28 Sodium Chloride IV 06/10/18 17:59 100 mls/hr ONETIME ONE Administration Lidocaine HCl 10 ml 06/10/18 18:38 06/10/18 18:44 Xylocaine 2% Jelly MUCMEM 06/10/18 18:39 10 ml ONETIME ONE Administration Lidocaine HCl Confirm 06/10/18 15:07 Xylocaine 2% Jelly Administered 06/10/18 15:08 Dose 10 ml .ROUTE .STK-MED ONE - Re-Assessments/Exams Free Text/Narrative Re-Assessment/Exam: 06/10/18 16:50 pt had a [address] and he did not drain well There could be some clots in the bladder which makes it appear like there is more urine. The urine iblood tinged. v 06/10/18 16:51 inr is good and not too high, a urine culture was set up He did grow out staph with the last culture. 06/10/18 18:15 Pt is now on his second liter of fluid and is urine output is not great. At this point he is not passing alot of clots. His hg is 7.5. He is on chemo. He states that he normally does drink alot of water. r 06/10/18 18:36 pt was given 1500 cc of fluid the output did not improve. He felt like his abdoman became more distended. Departure - Departure Time of Disposition: 20:10 Disposition: DC/Tfer to Acute Hospital 02 Condition: Fair Clinical Impression: Hematuria, Difficulty voiding Pancreatic cancer Qualifiers: Pancreatic malignancy location: unspecified Qualified Code(s): C25.9 - Malignant neoplasm of pancreas, unspecified - Discharge Information Referrals: Hema Mcnally MD [Primary Care Provider] - Forms: ED Department Discharge Care Plan Goals: Transfer to [facility].
[2018-06-10] MEDS ORDERED: cefTRIAXone 1 GM in Sodium Chloride 0.9% 50 ML IV ONE ×2 (16:48→17:30)
[2018-06-10] MEDS ORDERED: HYDROmorphone 1 MG/ML Syringe IVPUSH ONE (18:37)
[2018-06-10] MEDS ORDERED: Lidocaine 2% Jelly 10 ML Urojet MUCMEM ONE (18:38)
[2018-06-10 19:29] VITALS: BP 119/78
== END 2018-06-10 20:05 ==
LOC: JP.ED 15:04
DX: R31.9 Hematuria, unspecified (principal); N39.9 Disorder of urinary system, unspecified; C25.9 Malignant neoplasm of pancreas, unspecified; I10 Essential (primary) hypertension; F32.9 Major depressive disorder, single episode, unspecified; Z79.899 Other long term (current) drug therapy; Z79.01 Long term (current) use of anticoagulants; Z88.1 Allergy status to other antibiotic agents; Z88.8 Allergy status to other drugs, medicaments and biological substances; Z88.6 Allergy status to analgesic agent
CPT/HCPCS: 36415; 51702; 80048; 85025; 85610; 87086; 99284; C1751; J0696; J1170; J7030; J7050; 99285

== ENCOUNTER 2018-06-18 09:04 | Emergency (ER) | payer MEDICARE, OTHER ==
[2018-06-18] MEDS ORDERED: HYDROmorphone 2 MG Tab PO ONE (10:54)
[2018-06-18 11:09] VITALS: BP 149/83
--- NOTE | 2018-06-18 13:27 | EDM.PDOC ---
ED HPI GENERAL MEDICAL PROBLEM - General Chief Complaint: General Stated Complaint: FUILD IN ABDOMINALS/PAIN, SOB Time Seen by Provider: 06/18/18 10:00 - History of Present Illness INITIAL COMMENTS - FREE TEXT/NARRATIVE: Delightful 52 yo with hx of malignant ascites presents with concerns of abdominal distention Recently had paracentesis performed in [place] Since this time fluid has re-accumulated. He is having significant discomfort from this as well as difficulty breathing. No chest pain No cough No fevers No LE swelling or pain Previously managed on coumadin but now off this, unclear why Abdominal Pain Score (Numeric/FACES): 10 - Related Data Allergies Allergy/AdvReac Type Severity Reaction Status Date / Time adhesive Allergy Intermediate Rash Verified 06/18/18 10:04 ciprofloxacin [From Cipro] Allergy Rash Verified 06/18/18 10:04 levofloxacin [From Levaquin] Allergy Rash Verified 06/18/18 10:04 oxycodone HCl [From Tylox] Allergy Rash Verified 06/18/18 10:04 Home Meds: Home Meds Atenolol [Tenormin] 50 mg PO DAILY 02/04/13 [History] Cyclobenzaprine HCl [Flexeril] 20 mg PO BEDTIME 02/04/13 [History] Gabapentin [Neurontin] 300 mg PO BID 01/24/18 [History] Loperamide [Imodium] 4 mg PO Q6HR PRN 02/21/18 [History] Loratadine [Claritin] 10 mg PO BEDTIME 03/06/18 [History] Melatonin 20 mg PO BEDTIME 03/06/18 [History] Hyoscyamine [Hyomax-SL] 0.125 mg SL Q4H PRN #20 tab.sl 03/08/18 [Rx] Lactobacillus Acidophilus [Acidophilus Lactobacilli] 1 each PO BID #60 capsule 03/08/18 [Rx] HYDROmorphone [Dilaudid] 8 mg PO Q3H PRN #200 tablet 03/15/18 [Rx] fentaNYL [Duragesic] 12 mcg TD Q72H #5 patch 03/15/18 [Rx] Diphenhyd/Lidocaine/Nystatin [First-Bxn Mouthwash] 5 ml SSWAL QID #240 ml [Rx] Diphenoxylate HCl/Atropine [Lomotil] 1 tab PO QID PRN 06/06/18 [History] Ondansetron [Zofran ODT] 4 mg PO Q8HR PRN 06/06/18 [History] Prochlorperazine [Compazine] 10 mg PO Q6HR PRN 06/06/18 [History] fentaNYL [Duragesic] 25 mcg TRDERM Q72H 06/08/18 [History] Linezolid 1 tab PO BID 06/18/18 [History] Lipase/Protease/Amylase [[place] 2,600 Unit Cap] 2 cap PO TID 06/18/18 [ History] Magnesium Chloride [Mag-64] 64 mg PO DAILY 06/18/18 [History] Tamsulosin [Flomax] 1 tab PO DAILY 06/18/18 [History] Past Medical History HEENT History: Reports: None Cardiovascular History: Reports: Hypertension Gastrointestinal History: Reports: None Other Gastrointestinal History: cancer pancreas and liver, new mass in R small bowel Genitourinary History: Reports: Renal Calculus Musculoskeletal History: Reports: Osteoarthritis Neurological History: Reports: Concussion Other Neuro History: TBI Psychiatric History: Reports: Depression Hematologic History: Reports: Anticoagulation Therapy, Blood Transfusion(s) Immunologic History: Reports: Other (See Below) Other Immunologic History: Pancreatic CA with mets. chemo treatment Oncologic (Cancer) History: Reports: Liver, Metastatic, Pancreatic Other Oncologic History: small bowel Dermatologic History: Reports: Other (See Below) Other Dermatologic History: new rash ? from fentanyl patches - Infectious Disease History Infectious Disease History: Reports: Chicken Pox, MRSA - Past Surgical History HEENT Surgical History: Reports: Other (See Below) Other HEENT Surgeries/Procedures: metal taken out of eye, deviated septum GI Surgical History: Reports: Hernia, Abdominal, Other (See Below) Other GI Surgeries/Procedures: EXPLORATORY LAP 10 YEARS AGO, SPLENECTOMY AT THAT TIME ALSO Neurological Surgical History: Reports: Spinal Fusion Musculoskeletal Surgical History: Reports: Other (See Below) Other Musculoskeletal Surgeries/Procedures:: RODS IN LOW BACK AND HARDWARE IN RIGHT ANKLE Social & Family History - Family History Family Medical History: Noncontributory - Tobacco Use Smoking Status *Q: Never Smoker - Caffeine Use Caffeine Use: Reports: None - Recreational Drug Use Recreational Drug Use: No - Living Situation & Occupation Living situation: Reports: , with Family Occupation: Disabled ED ROS GENERAL - Review of Systems Review Of Systems: See Below Constitutional: Reports: No Symptoms HEENT: Reports: No Symptoms Respiratory: Reports: Shortness of Breath Cardiovascular: Reports: No Symptoms Endocrine: Reports: No Symptoms GI/Abdominal: Reports: Abdominal Pain, Distension : Reports: No Symptoms Musculoskeletal: Reports: No Symptoms Skin: Reports: No Symptoms Neurological: Reports: No Symptoms Psychiatric: Reports: No Symptoms Hematologic/Lymphatic: Reports: No Symptoms Immunologic: Reports: No Symptoms ED EXAM, GENERAL - Physical Exam Exam: See Below Exam Limited By: No Limitations General Appearance: Alert, No Apparent Distress Nose: Normal Inspection Throat/Mouth: Normal Inspection Head: Atraumatic, Normocephalic Neck: Normal Inspection Respiratory/Chest: No Respiratory Distress, Lungs Clear Cardiovascular: Regular Rate, Rhythm GI/Abdominal: Non-Tender, Distended (protruberant abdomen, distended but non- tender) Back Exam: Normal Inspection Extremities: Normal Inspection Neurological: Alert, Oriented Psychiatric: Normal Affect, Normal Mood Skin Exam: Warm, Dry ED GENERAL MEDICAL PROCEDURES - Additional/Other Procedure(s) Other (Free Text) Procedure(s): Paracentesis: Written consent obtained and sterile precautions. Abdomen prep and drapped in typical fashion after identification of fluid pocket under ultrasound guidance. Local anesthesia with 1% lidocaine. Paracentesis catheter introduced after skin luis performed with return of peritoneal fluid. 30 cc draw off and sent to labs. Additional 3.5 L of straw colored peritoneal fluid removed. Not apparent complications. Adhesive bandage applied, no peritoneal fluid leakage. Post procedure hemodynamics stable. Course - Vital Signs Last Recorded V/S: Last Vital Signs Temp 36.1 C 06/18/18 11:06 Pulse 63 06/18/18 11:06 Resp 16 06/18/18 11:06 BP 149/83 H 06/18/18 11:06 Pulse Ox 100 06/18/18 11:06 - Orders/Labs/Meds Orders: Active Orders 24 hr Category Date Time Status CULTURE BODY FLUID + SMEAR [RM] Stat Lab 06/18/18 13:24 Results Labs: Laboratory Tests 06/18/18 06/18/18 06/18/18 Range/Units 10:56 10:56 10:56 WBC 6.5 (4.5-11.0) K/uL RBC 3.36 L (4.30-5.90) M/uL Hgb 10.1 L D (12.0-15.0) g/dL Hct 32.0 L (40.0-54.0) % MCV 95 (80-98) fL MCH 30 (27-31) pg MCHC 32 (32-36) % Plt Count 417 H (150-400) K/uL PT 12.6 H (9.5-12.0) sec INR 1.15 (0.80-1.20) Sodium 135 L (140-148) mmol/L Potassium 4.2 (3.6-5.2) mmol/L Chloride 104 (100-108) mmol/L Carbon Dioxide 24 (21-32) mmol/L Anion Gap 11.2 (5.0-14.0) mmol/L BUN 17 (7-18) mg/dL Creatinine 0.8 (0.8-1.3) mg/dL Est Cr Clr Drug Dosing 95.26 mL/min Estimated GFR (MDRD) > 60 (>60) Glucose 118 H (74-106) mg/dL Calcium 8.4 L (8.5-10.1) mg/dL Fluid Type Fluid WBC /ul Fluid RBC /ul Fluid Diff Comment Fluid Mononuclear Cell % Fl Polymorphonucl Cell % 06/18/18 Range/Units 13:25 WBC (4.5-11.0) K/uL RBC (4.30-5.90) M/uL Hgb (12.0-15.0) g/dL Hct (40.0-54.0) % MCV (80-98) fL MCH (27-31) pg MCHC (32-36) % Plt Count (150-400) K/uL PT (9.5-12.0) sec INR (0.80-1.20) Sodium (140-148) mmol/L Potassium (3.6-5.2) mmol/L Chloride (100-108) mmol/L Carbon Dioxide (21-32) mmol/L Anion Gap (5.0-14.0) mmol/L BUN (7-18) mg/dL Creatinine (0.8-1.3) mg/dL Est Cr Clr Drug Dosing mL/min Estimated GFR (MDRD) (>60) Glucose (74-106) mg/dL Calcium (8.5-10.1) mg/dL Fluid Type Peritoneal fluid Fluid WBC 153 /ul Fluid RBC 261 /ul Fluid Diff Comment Peritoneal fluid Fluid Mononuclear Cell 67 % Fl Polymorphonucl Cell 33 % Meds: Medications Discontinued Medications Generic Name Dose Route Start Last Admin Trade Name Jennifer PRN Reason Stop Dose Admin Hydromorphone HCl 4 mg 06/18/18 10:54 06/18/18 11:13 Dilaudid PO 06/18/18 10:55 4 mg Q3H ONE Administration - Re-Assessments/Exams Free Text/Narrative Re-Assessment/Exam: 52 yo with hx of malignant ascites presents with recurrent tense ascites and dyspnea Paracentesis performed sterilely as outline above after obtaining consent with ultrasound guidance Fluid sent for analysis but no suspicion for SBP at this time Dyspnea resolved after removal of 3.5 L of ascitic fluid Vitals stable post-procedure and he was ambulatory around the ER Discharged 06/19/18 07:51 Departure - Departure Time of Disposition: 13:30 Disposition: Home, Self-Care 01 Clinical Impression: Malignant ascites - Discharge Information *PRESCRIPTION DRUG MONITORING PROGRAM REVIEWED*: No *COPY OF PRESCRIPTION DRUG MONITORING REPORT IN PATIENT FABIO: No Instructions: Paracentesis, Care After Referrals: Hema Mcnally MD [Primary Care Provider] - Forms: ED Department Discharge Additional Instructions: Please follow up with your cancer doctor as planned Return to the ER for recurrent shortness of breath or dizziness - My Orders Last 24 Hours: My Active Orders 06/18/18 13:24 CULTURE BODY FLUID + SMEAR [RM] Stat - Assessment/Plan Last 24 Hours: My Active Orders 06/18/18 13:24 CULTURE BODY FLUID + SMEAR [RM] Stat
== END 2018-06-18 13:33 | disposition home or self-care (01) ==
LOC: JP.ED 09:04
DX: C22.8 Malignant neoplasm of liver, primary, unspecified as to type (principal); C78.89 Secondary malignant neoplasm of other digestive organs; R18.0 Malignant ascites; I10 Essential (primary) hypertension; F32.9 Major depressive disorder, single episode, unspecified; Z79.899 Other long term (current) drug therapy; Z91.09 Other allergy status, other than to drugs and biological substances; Z88.1 Allergy status to other antibiotic agents; Z88.6 Allergy status to analgesic agent
CPT/HCPCS: 36415; 49083; 80048; 85027; 85610; 87070; 87205; 89050; 99284; A9270

== ENCOUNTER 2018-07-11 16:40 | Emergency (ER) | payer MEDICARE, OTHER ==
[2018-07-11] MEDS ORDERED: Ketamine 500 MG/5 ML MDV IV ONE (17:07)
[2018-07-11] MEDS ORDERED: HYDROmorphone 1 MG/ML Syringe IVPUSH ONE ×2 (17:07→18:37)
--- NOTE | 2018-07-11 17:11 | EDM.PDOC ---
<Elza Mckinney - Last Filed: 07/11/18 20:38> ED HPI GENERAL MEDICAL PROBLEM - General Chief Complaint: Abdominal Pain Stated Complaint: ABDOMINALS FULL OF FLUID, PAIN Time Seen by Provider: 07/11/18 17:04 - Related Data Allergies Allergy/AdvReac Type Severity Reaction Status Date / Time adhesive Allergy Intermediate Rash Verified 07/14/18 09:29 ciprofloxacin [From Cipro] Allergy Rash Verified 07/14/18 09:29 levofloxacin [From Levaquin] Allergy Rash Verified 07/14/18 09:29 oxycodone HCl [From Tylox] Allergy Rash Verified 07/14/18 09:29 Home Meds: Home Meds Atenolol [Tenormin] 50 mg PO DAILY 02/04/13 [History] Cyclobenzaprine HCl [Flexeril] 20 mg PO BEDTIME 02/04/13 [History] Gabapentin [Neurontin] 300 mg PO BID 01/24/18 [History] Melatonin 20 mg PO BEDTIME 03/06/18 [History] Hyoscyamine [Hyomax-SL] 0.125 mg SL Q4H PRN #20 tab.sl 03/08/18 [Rx] fentaNYL [Duragesic] 12 mcg TD Q72H #5 patch 03/15/18 [Rx] Diphenhyd/Lidocaine/Nystatin [First-Bxn Mouthwash] 5 ml SSWAL QID #240 ml [Rx] Ondansetron [Zofran ODT] 4 mg PO Q8HR PRN 06/06/18 [History] fentaNYL [Duragesic] 25 mcg TRDERM Q72H 06/08/18 [History] HYDROmorphone HCl [Hydromorphone ER] 8 mg PO Q3H PRN 07/11/18 [History] Diphenoxylate HCl/Atropine [Diphenoxylate-Atrop 2.5-0.025] 1 each PO QID PRN [History] L Acidophil/B Lactis/B Longum [Florajen3] 460 mg PO DAILY 07/14/18 [History] Max3 2 cap PO BID 07/14/18 [History] Mv-Mn/Folic Acid/Lutein/Zsv188 [Mens Multivit High Potency Tab] 1 each PO DAILY 04/18/19 [History] Sennosides/Docusate Sodium [Docusate Sodium-Senna Tablet] 1 each PO DAILY [History] Course - Vital Signs Last Recorded V/S: Last Vital Signs Temp 97.8 F 07/11/18 17:00 Pulse 70 07/11/18 20:40 Resp 12 07/11/18 20:40 BP 122/76 07/11/18 20:40 Pulse Ox 95 07/11/18 20:40 - Orders/Labs/Meds Labs: Laboratory Tests 07/11/18 07/11/18 07/11/18 Range/Units 17:51 17:51 17:51 WBC 7.2 (4.5-11.0) K/uL RBC 2.98 L (4.30-5.90) M/uL Hgb 9.0 L (12.0-15.0) g/dL Hct 28.7 L (40.0-54.0) % MCV 96 (80-98) fL MCH 30 (27-31) pg MCHC 31 L (32-36) % Plt Count 262 (150-400) K/uL Neut % (Auto) 65 (36-66) % Lymph % (Auto) 23 L (24-44) % [place] % (Auto) 8 H (2-6) % Eos % (Auto) 4 (2-4) % Baso % (Auto) 0 (0-1) % PT 11.8 (9.5-12.0) sec INR 1.08 (0.80-1.20) Sodium 137 L (140-148) mmol/L Potassium 3.9 (3.6-5.2) mmol/L Chloride 106 (100-108) mmol/L Carbon Dioxide 23 (21-32) mmol/L Anion Gap 11.9 (5.0-14.0) mmol/L BUN 16 (7-18) mg/dL Creatinine 0.8 (0.8-1.3) mg/dL Est Cr Clr Drug Dosing 94.96 mL/min Estimated GFR (MDRD) > 60 (>60) Glucose 96 (74-106) mg/dL Calcium 8.3 L (8.5-10.1) mg/dL Total Bilirubin 0.6 D (0.2-1.0) mg/dL AST 21 (15-37) U/L ALT 16 (12-78) U/L Alkaline Phosphatase 227 H (46-116) U/L Total Protein 5.6 L (6.4-8.2) g/dL Albumin 1.6 L (3.4-5.0) g/dL Globulin 4.0 H (2.3-3.5) g/dL Albumin/Globulin Ratio 0.4 L (1.2-2.2) Meds: Medications Discontinued Medications Generic Name Dose Route Start Last Admin Trade Name Freq PRN Reason Stop Dose Admin Hydromorphone HCl 1 mg 07/11/18 17:07 07/11/18 17:16 Dilaudid IVPUSH 07/11/18 17:08 1 mg ONETIME ONE Administration Hydromorphone HCl 1 mg 07/11/18 18:37 07/11/18 18:45 Dilaudid IVPUSH 07/11/18 18:38 1 mg ONETIME ONE Administration Hydromorphone HCl 8 mg 07/11/18 20:05 07/11/18 20:13 Dilaudid PO 07/11/18 20:06 8 mg Q3H ONE Administration Lactated Ringer's 1,000 mls @ 500 mls/hr 07/11/18 18:37 07/11/18 19:27 Ringers, Lactated IV 07/11/18 20:36 500 mls/hr BOLUS ONE Administration Sodium Chloride 80 mls @ 3 mls/sec 07/11/18 19:15 07/11/18 19:15 Normal Saline IV 3 mls/sec ASDIRECTED HIGINIO Administration Iopamidol 100 ml 07/11/18 19:15 07/11/18 19:16 Isovue-300 (61%) IV 100 ml . DIRECTED HIGINIO Administration Ketamine HCl 10 mg 07/11/18 17:07 07/11/18 17:17 Ketalar IV 07/11/18 17:08 10 mg ONETIME ONE Administration Sodium Chloride 10 ml 07/11/18 19:02 07/11/18 19:16 Saline Flush FLUSH 10 ml ASDIRECTED PRN Administration Keep Vein Open - Re-Assessments/Exams Free Text/Narrative Re-Assessment/Exam: 07/11/18 20:38 pt had a cat scan of the abdoman did not have any new findings. Pt feels like his pain control was ok until he got so distended. Departure - Departure Time of Disposition: 20:36 Disposition: Home, Self-Care 01 Condition: Fair Clinical Impression: Status post abdominal paracentesis Cancer of pancreas Qualifiers: Pancreatic malignancy location: unspecified Qualified Code(s): C25.9 - Malignant neoplasm of pancreas, unspecified - Discharge Information Instructions: Pancreatic Cancer, Abdominal Pain, Adult, [id number] Referrals: Hema Mcnally MD [Primary Care Provider] - Forms: ED Department Discharge Care Plan Goals: continue pain meds the same, keep appt with Dr Staley tomorrow-- consult regarding a Cuauhtemoc shunt. <OfficerRoss - Last Filed: 07/18/18 18:03> ED HPI GENERAL MEDICAL PROBLEM - General Source of Information: Reports: Patient, RN Notes Reviewed History Limitations: Reports: No Limitations - History of Present Illness INITIAL COMMENTS - FREE TEXT/NARRATIVE: 52-year-old gentleman presents emergency department today with increasing abdominal pain, he has a known history of pancreatic cancer with metastases and ongoing ascites he's had multiple thoracentesis to relieve the abdominal pain in help with breathing. He recently had thoracentesis on Wednesday 3 days prior to presentation with a removed 3 L. He was scheduled to have another one in 1 week' s time unfortunately he is experiencing too much pain and discomfort and reported to the emergency department for help Past Medical History Cardiovascular History: Reports: Hypertension Other Gastrointestinal History: cancer pancreas and liver, new mass in R small bowel Genitourinary History: Reports: Renal Calculus Musculoskeletal History: Reports: Osteoarthritis Neurological History: Reports: Concussion Other Neuro History: TBI Psychiatric History: Reports: Depression Hematologic History: Reports: Anticoagulation Therapy, Blood Transfusion(s) Immunologic History: Reports: Other (See Below) Other Immunologic History: Pancreatic CA with mets. chemo treatment Oncologic (Cancer) History: Reports: Liver, Metastatic, Pancreatic Other Oncologic History: small bowel Dermatologic History: Reports: Other (See Below) Other Dermatologic History: new rash ? from fentanyl patches - Infectious Disease History Infectious Disease History: Reports: Chicken Pox, Mumps - Past Surgical History HEENT Surgical History: Reports: Other (See Below) Other HEENT Surgeries/Procedures: metal taken out of eye, deviated septum GI Surgical History: Reports: Hernia, Abdominal, Other (See Below) Other GI Surgeries/Procedures: EXPLORATORY LAP 10 YEARS AGO, SPLENECTOMY AT THAT TIME ALSO Neurological Surgical History: Reports: Spinal Fusion Musculoskeletal Surgical History: Reports: Other (See Below) Other Musculoskeletal Surgeries/Procedures:: RODS IN LOW BACK AND HARDWARE IN RIGHT ANKLE Social & Family History - Family History Family Medical History: Noncontributory - Caffeine Use Caffeine Use: Reports: None - Recreational Drug Use Recreational Drug Use: No - Living Situation & Occupation Living situation: Reports: , with Family Occupation: Disabled ED ROS GENERAL - Review of Systems Review Of Systems: See Below Constitutional: Reports: Weakness, Weight Loss GI/Abdominal: Reports: Abdominal Pain, Nausea ED EXAM, GI/ABD - Physical Exam Exam: See Below Text/Narrative:: Abdomen is markedly distended and generalized tender to palpation Exam Limited By: No Limitations General Appearance: Alert, Moderate Distress Course - Orders/Labs/Meds Labs: Laboratory Tests 07/11/18 07/11/18 07/11/18 Range/Units 17:51 17:51 17:51 WBC 7.2 (4.5-11.0) K/uL RBC 2.98 L (4.30-5.90) M/uL Hgb 9.0 L (12.0-15.0) g/dL Hct 28.7 L (40.0-54.0) % MCV 96 (80-98) fL MCH 30 (27-31) pg MCHC 31 L (32-36) % Plt Count 262 (150-400) K/uL Neut % (Auto) 65 (36-66) % Lymph % (Auto) 23 L (24-44) % [place] % (Auto) 8 H (2-6) % Eos % (Auto) 4 (2-4) % Baso % (Auto) 0 (0-1) % PT 11.8 (9.5-12.0) sec INR 1.08 (0.80-1.20) Sodium 137 L (140-148) mmol/L Potassium 3.9 (3.6-5.2) mmol/L Chloride 106 (100-108) mmol/L Carbon Dioxide 23 (21-32) mmol/L Anion Gap 11.9 (5.0-14.0) mmol/L BUN 16 (7-18) mg/dL Creatinine 0.8 (0.8-1.3) mg/dL Est Cr Clr Drug Dosing 94.96 mL/min Estimated GFR (MDRD) > 60 (>60) Glucose 96 (74-106) mg/dL Calcium 8.3 L (8.5-10.1) mg/dL Total Bilirubin 0.6 D (0.2-1.0) mg/dL AST 21 (15-37) U/L ALT 16 (12-78) U/L Alkaline Phosphatase 227 H (46-116) U/L Total Protein 5.6 L (6.4-8.2) g/dL Albumin 1.6 L (3.4-5.0) g/dL Globulin 4.0 H (2.3-3.5) g/dL Albumin/Globulin Ratio 0.4 L (1.2-2.2) - Re-Assessments/Exams Free Text/Narrative Re-Assessment/Exam: 07/11/18 18:38 Paracentesis was performed he had good relief is breathing good relief the abdominal distention however now he localizes his pain in the left lower quadrant, he states this pain is different than he has had before. 07/18/18 18:02 - Assessment/Plan Plan: Assessment Acuity = acute Site and laterality = abdominal ascites comp came patient with known history of pancreatic cancer with metastases to the liver Etiology = ongoing neoplastic syndrome Manifestations = abdominal pain Location of injury = Home Lab values = hemoglobin 9.0 consistent with normochromic anemia INR stable 1.08 albumin low at 1.6 consistent with hypoalbum[address]emia Plan Dr. Obrien was present for a paracentesis please see his note for details This note was dictated using [employer] voice recognition software please call with any questions on syntax or grammar.
[2018-07-11] MEDS ORDERED: Lactated Ringers 1,000 ML IV ONE (18:37)
[2018-07-11] MEDS ORDERED: Sodium Chloride 0.9% 10 ML Syringe FLUSH PRN (19:02)
[2018-07-11] MEDS ORDERED: Iopamidol 612 MG/ML 100 ML Bottle IV SCH (19:15)
[2018-07-11] MEDS ORDERED: Sodium Chloride 0.9% 80 ML IV SCH (19:15)
[2018-07-11] MEDS ORDERED: HYDROmorphone 2 MG Tab PO ONE (20:05)
--- NOTE | 2018-07-11 20:32 | CRLCT ---
INDICATION: Right lower quadrant pain, pancreatic cancer with metastatic disease. TECHNIQUE: CT abdomen and pelvis acquired with 100 cc Isovue-300 intravenous contrast. COMPARISON: Abdomen and pelvis CT 05/22/2018 FINDINGS: Lower chest: Port-A-Cath extends to the cavoatrial junction. Small left pleural effusion. Mild dependent atelectasis lung bases. Liver: Numerous hypodense lesions within the liver. Liver Index Lesions: 1. Dome 2.3 cm (2, 21; prior 2.6 cm). 2. Right lobe 2.0 cm (2, 42; prior 2.5 cm). 3. Left lobe 1.6 cm (2, 31; prior 1.6 cm). Gallbladder and bile ducts: The gallbladder is unremarkable. Common duct is borderline at 7 millimeters although similar to the prior exam. Pancreas: Low-density pancreatic body mass is re- demonstrated, partially obscured by beam hardening artifact from the patient`s spinal surgery. This measures at least 3.7 x 3.6 centimeters (prior remeasured 4.5 x 4.6 cm). Associated atrophy of the pancreatic tail. Spleen: Borderline spleen size. Splenic vein is thrombosed with prominent perisplenic collaterals. Adrenal glands: Unremarkable. No nodules. Kidneys: Unremarkable. No masses, stones, or hydronephrosis. GI tract: The stomach is unremarkable. Several loops of small bowel are borderline caliber. Mild small bowel wall thickening diffusely. The patient is status post abdominal surgery with multiple clips along the anterior peritoneum appearance suggesting prior omental resection. There is no definite colonic dilatation, however the cecum and ascending colon are poorly defined on this study. Notably, there appears to be wall thickening of the cecum and ascending colon extending to the proximal transverse colon. There is also a small amount of ascites. There is prominent bowel wall edema involving the ascending colon to the extent of which the margins of the bowel are difficult to confirm with the adjacent ascites. There are several random appearing bubbles of air within the right flank most of which appear to be within the bowel lumen, however pneumatosis or localized pneumoperitoneum in this region would be difficult to entirely exclude. No althea pneumatosis at the diaphragm or anterior peritoneal lining is seen. Vasculature: There is chronic appearing thrombosis of the portal vein secondary to the pancreatic mass with cavernous transformation of the portal vein. In addition the splenic vein is thrombosed and appear similar to the prior exam. Pelvis: The bladder is unremarkable. Bones: Status post thoracolumbar surgery with posterior rods causing significant beam hardening artifact. IMPRESSION: 1. Small bowel wall thickening as well as more prominent wall thickening of the cecum and ascending colon. A component of this is likely related to portal hypertension secondary to the chronic portal vein thrombosis. However, there is prominent edema and likely some increased bowel wall thickening involving the cecum and ascending colon and a superimposed colitis in the setting of right lower quadrant pain is possible. Note that, as described above, the margins of the descending colon are not well appreciated on the scan and pneumatosis or even bubbles of localized pneumoperitoneum would be difficult to entirely exclude. 2. Pancreatic mass with liver metastases showing mild interval decrease in size compared to the study of 2 months prior. 3. 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 4. Small left pleural effusion. Please note that all CT scans at this facility use dose modulation, iterative reconstruction, and/or weight-based dosing when appropriate to reduce radiation dose to as low as reasonably achievable. Dictated by Claus Ferguson MD @ Jul 11 2018 8:09PM Signed by Dr. Claus Ferguson @ Jul 11 2018 8:31PM
[2018-07-11 20:54] VITALS: BP 122/76
--- NOTE | 2018-07-12 07:54 | OR ---
DATE OF PROCEDURE: 07/11/2018 PREOPERATIVE DIAGNOSIS: Symptomatic malignant ascites. POSTOPERATIVE DIAGNOSIS: Symptomatic malignant ascites. PROCEDURE: Paracentesis using ultrasound guidance to remove 2725 mL of serous fluid. SURGEON: Keo Obrien MD ANESTHESIA: Lidocaine 1% plain local. INDICATION: This 52-year-old white male has a malignant ascites secondary to metastatic pancreatic carcinoma. He is undergoing recurrent paracentesis for symptomatic ascites. He comes into the emergency room saying he is having difficulty breathing and has pain, and requests a paracentesis. I counseled him for this and he gave his informed consent to proceed. DESCRIPTION OF PROCEDURE: The band cutter marked a good spot for the paracentesis in the right lower quadrant. The area was prepped and draped in the usual sterile fashion. Lidocaine 1% plain was infiltrated at the site indicated by the band cutter. The needle was introduced into the abdomen, aspirated, and we obtained serous fluid indicating this indeed is a good place for the paracentesis. A small skin incision was then made at this point. A needle with catheter manufactured by [employer] was then introduced into the abdomen. As soon as we obtained fluid the catheter was advanced and the needle was removed. We then, using the suction bottle technique, removed 2725 mL of serous fluid. When no more fluid could come, the catheter was removed. A figure-of- eight stitch of 3-0 Prolene was used to close the small incision. A sterile dressing was applied. He tolerated the procedure well. Follow up with me p.r.n. He is going to see Dr. Staley tomorrow in the outpatient department. Keo Obrien MD /[id number] BRIAN
== END 2018-07-11 20:55 | disposition home or self-care (01) ==
LOC: JP.ED 16:40
DX: C25.9 Malignant neoplasm of pancreas, unspecified (principal); C78.7 Secondary malignant neoplasm of liver and intrahepatic bile duct; I10 Essential (primary) hypertension; F32.9 Major depressive disorder, single episode, unspecified; Z91.018 Allergy to other foods; Z88.1 Allergy status to other antibiotic agents; Z79.899 Other long term (current) drug therapy; Z98.890 Other specified postprocedural states
CPT/HCPCS: 36415; 49083; 74177; 80053; 85025; 85610; 96361; 96374; 96375; 99284; 99284-25; A9270-GY; J1170; J7030; J7120; Q9967

== ENCOUNTER 2018-07-14 08:30 | Inpatient (IN) | payer MEDICARE, OTHER ==
[~2018-07-14 08:30] MED LIST: Acetaminophen 500 MG Tab PO ONE; Gabapentin 300 MG Cap PO ONE
[2018-07-14] MEDS: Dextrose 5%-Lactated Ringers 1,000 ML IV SCH ×2 (09:14→16:28)
[2018-07-14] MEDS ORDERED: ceFAZolin 2 GM in Premix Bag 1 BAG IV ONE (09:45)
[2018-07-14] MEDS ORDERED: Bupivacaine 0.5%/EPINEPHrine 1:200,000 50 ML MDV ONE (10:23)
[2018-07-14] MEDS ORDERED: fentaNYL 250 MCG/5 ML SDV ONE (10:40)
[2018-07-14] MEDS ORDERED: Ondansetron 4 MG/2 ML SDV ONE (10:41)
[2018-07-14] MEDS ORDERED: Rocuronium 50 MG/5 ML Vial ONE ×2 (10:41→12:54)
[2018-07-14] MEDS ORDERED: Dexamethasone 4 MG/ML SDV ONE (10:41)
[2018-07-14] MEDS ORDERED: Propofol 200 MG/20 ML SDV ONE (10:41)
[2018-07-14] MEDS ORDERED: Neostigmine Methylsulfate 1 MG/ML 5 ML Syringe ONE (10:41)
[2018-07-14] MEDS ORDERED: Glycopyrrolate 0.2 MG/ML 5 ML MDV ONE (10:41)
[2018-07-14] MEDS ORDERED: Naloxone 0.4 MG/ML SDV IVPUSH PRN (10:51)
[2018-07-14] MEDS: HYDROmorphone/Normal Saline 15 MG/30 ML PCA IV PRN ×2 (11:26→22:42)
[2018-07-14] MEDS ORDERED: Ondansetron 4 MG/2 ML SDV IVPUSH PRN (15:30)
[2018-07-14] MEDS ORDERED: Atropine/Diphenoxylate 0.025-2.5 MG Tab PO PRN (15:31)
[2018-07-14] MEDS ORDERED: Hyoscyamine 0.125 MG Tab.SL SL PRN (15:36)
[2018-07-14] MEDS: Cyclobenzaprine 10 MG Tab PO PRN (15:44)
[2018-07-14] MEDS: DIPHENHYDRAMINE PO SCH ×6 (16:31→21:25)
[2018-07-14] MEDS: NYSTATIN PO SCH ×6 (16:31→21:25)
[2018-07-14] MEDS: LIDOCAINE 2% PO SCH ×6 (16:31→21:25)
[2018-07-14] MEDS: Pantoprazole 40 MG Vial IV SCH (17:04)
[2018-07-14] MEDS: ceFAZolin 2 GM in Premix Bag 1 BAG IV SCH (17:07)
[2018-07-14] MEDS: Gabapentin 300 MG Cap PO SCH (21:26)
[2018-07-14] MEDS: Melatonin 3 MG Tab PO PRN (21:26)
[2018-07-14] MEDS: FENTANYL PATCH CHECK TOP SCH (21:26)
[2018-07-14] MEDS ORDERED: Lactated Ringers 500 ML IV SCH (22:45)
[2018-07-15] MEDS: Cyclobenzaprine 10 MG Tab PO PRN ×2 (00:10→20:35)
[2018-07-15] MEDS: Dextrose 5%-Lactated Ringers 1,000 ML IV SCH ×3 (03:16→22:35)
[2018-07-15] MEDS: ceFAZolin 2 GM in Premix Bag 1 BAG IV SCH ×3 (03:16→18:39)
[2018-07-15] MEDS ORDERED: Lactated Ringers 500 ML IV SCH (03:25)
[2018-07-15] MEDS: DIPHENHYDRAMINE PO SCH ×12 (05:57→22:34)
[2018-07-15] MEDS: NYSTATIN PO SCH ×12 (05:57→22:34)
[2018-07-15] MEDS: LIDOCAINE 2% PO SCH ×12 (05:57→22:34)
[2018-07-15] MEDS: Gabapentin 300 MG Cap PO SCH ×2 (08:19→20:28)
[2018-07-15] MEDS: Atenolol 50 MG Tab PO SCH (08:24)
[2018-07-15] MEDS ORDERED: FENTANYL TRDERM SCH ×2 (09:00)
[2018-07-15] MEDS: FENTANYL PATCH CHECK TOP SCH ×2 (10:21→20:28)
--- NOTE | 2018-07-15 11:00 | PN ---
DATE OF SERVICE: 07/15/2018 SUBJECTIVE: Ricardo is postoperative day #1. Pain ranges consistently between a 6 and an 8. He did have decreased urine output. Total out of his Osborne catheter was 493. He did receive 2 boluses of lactated Ringer's 500 mL. He is alert and orientated. Remainder of review of systems negative for any pertinent positives and negatives. Hemoglobin 7, hematocrit 22.6. INR 1.21. Glucose 125. Albumin is 1.3. OBJECTIVE: GENERAL: Ricardo Estrella is a pleasant 52-year-old male, alert and orientated, color pale. VITAL SIGNS: TPR 97.4, 53, 14, blood pressure is 91/58. HEENT: Negative. NECK: Supple. He does have a staple in the right side of his neck. Area around it is pink, but soft. No hematoma. Cuauhtemoc shunt in place. Alex Staley MD, did pump the shunt and taught Ms. Estrella how to use that. ABDOMEN: Soft and nontender. EXTREMITIES: Without peripheral edema. ASSESSMENT: Placement of [place] peripheral venous shunt for rapidly recurring malignant ascites, date 07/14/2018. Surgeon, Alex Staley MD. PLAN: 1. Type and cross 2 units of packed red blood cells. 2. Give 2 units of packed red blood cells today. 3. Teach on how to use the [place] shunt 6 times daily q.i.d. to family. 4. Regular diet. 5. High-protein, either Ensure or Boost q.i.d. 6. Discontinue Osborne catheter. 7. Check CBC at 2000 hours. 8. Check CBC, CMP, mag, and phos in a.m. 9. We will evaluate p.r.n. or in the a.m. Ashley Bernabe PA-C /[id number]
[2018-07-15] MEDS: Pantoprazole 40 MG Vial IV SCH (16:40)
[2018-07-15] MEDS: Melatonin 3 MG Tab PO PRN (20:35)
[2018-07-15] MEDS: HYDROmorphone/Normal Saline 15 MG/30 ML PCA IV PRN (22:30)
[2018-07-16] MEDS: NYSTATIN PO SCH ×12 (06:00→21:27)
[2018-07-16] MEDS: LIDOCAINE 2% PO SCH ×12 (06:00→21:27)
[2018-07-16] MEDS: DIPHENHYDRAMINE PO SCH ×12 (06:00→21:27)
[2018-07-16] MEDS ORDERED: Dextrose 5%-Lactated Ringers 1,000 ML IV SCH (08:15)
[2018-07-16] MEDS: HYDROmorphone 2 MG Tab PO PRN ×5 (08:29→21:25)
[2018-07-16] MEDS: Gabapentin 300 MG Cap PO SCH ×2 (08:55→21:27)
[2018-07-16] MEDS: Atenolol 50 MG Tab PO SCH (08:55)
[2018-07-16] MEDS: FENTANYL PATCH CHECK TOP SCH ×2 (08:56→21:27)
[2018-07-16] MEDS ORDERED: Pantoprazole 40 MG Tab.CR PO SCH (17:00)
[2018-07-16] MEDS: Melatonin 3 MG Tab PO PRN (21:25)
[2018-07-16] MEDS: Cyclobenzaprine 10 MG Tab PO PRN (21:25)
[2018-07-17] MEDS: HYDROmorphone 2 MG Tab PO PRN ×3 (00:15→07:25)
[2018-07-17] MEDS: NYSTATIN PO SCH ×3 (06:00)
[2018-07-17] MEDS: LIDOCAINE 2% PO SCH ×3 (06:00)
[2018-07-17] MEDS: DIPHENHYDRAMINE PO SCH ×3 (06:00)
[2018-07-17] MEDS: Atenolol 50 MG Tab PO SCH (07:25)
[2018-07-17 07:26] VITALS: BP 117/73
[2018-07-17] MEDS: Gabapentin 300 MG Cap PO SCH (07:26)
--- NOTE | 2018-07-18 09:52 | PN ---
DATE OF SERVICE: 07/16/2018 The patient has been afebrile with stable vital signs. Appears to be fairly comfortable with HEMATOLOGY TECHNOLOGIST and fentanyl patches. Will go over to a standard 8 mg of Dilaudid orally q.3 hours p.r.n. today and likely will send him home tomorrow. Shunt appears to be working satisfactorily. As what will typically happen, this does not by any means completely deflate the ascites, but reduces the volume such that the patient is comfortable and functional. I will plan to try to get the patient home tomorrow morning. Alex Staley MD /[id number]
--- NOTE | 2018-07-18 11:04 | OR ---
DATE OF PROCEDURE: 07/14/2018 PREOPERATIVE DIAGNOSIS: Rapidly recurring symptomatic malignant ascites. POSTOPERATIVE DIAGNOSIS: Rapidly recurring symptomatic malignant ascites. OPERATIVE PROCEDURE: Placement of [place] peritoneovenous shunt ([id number]). ANESTHESIA: General. SUPERVISOR DRY CELL ASSEMBLY: Ashley Bernabe PA-C. INDICATIONS FOR PROCEDURE: This is a 52-year-old with rapidly recurring severely symptomatic malignant ascites. The management options included recurrent frequent paracentesis and external drainage catheter or peritoneovenous shunt. We were initially going toward an external drainage catheter, but Interventional Radiology Department in [place] was quite slow in getting this set up, and the patient was feeling somewhat desperate and wished to proceed with a peritoneal venous shunt, which in my view would be a good option as well, since it would avoid loss of protein and fluid on an ongoing basis. Potential risks of the procedure including bleeding, infection, injury to underlying viscera or vasculature, problems with the shunt becoming infected or occluded were reviewed, as well as possible problems with postoperative DIC were all reviewed, and the patient wishes to proceed. DETAILS OF PROCEDURE: The patient was taken to the operating room and placed in a supine position. After general endotracheal anesthesia was induced, the abdomen, chest, and neck areas were prepped and draped. Initially, we were going to aim for getting this on the left side, since the patient has a right subclavian vein port. The internal jugular vein on the left side was initially cannulated and a guidewire passed. As was noted at the time of port placement, the venous system on this side did not allow free entrance into the superior vena cava, but curled upward toward the contralateral innominate vein and right subclavian area. This, however, ended up being the final site for the vascular side of the [place] shunt, would be acceptable, since it is in an intrathoracic location resulting in negative pressure on inspiration, tending to draw fluid into the shunt and into the venous system. Given this, this guidewire was left in place. At this point, transverse incision in the left lateral subcostal area, just lateral to the patient's previously placed mesh, was then made and carried down through the skin and subcutaneous tissue. Musculature was then spread and the peritoneum opened. Peritoneal cavity could be entered into, where there was some fluid, but we were unable to get a guidewire in any direction away from that, likely related to dense adhesions in that area. Given this, this area was then subsequently closed at the peritoneal level, the muscular layer, subcutaneous and subcuticular stitches were placed, all with Vicryl sutures. Attention was then taken to the right side. The right internal jugular vein was then cannulated, and this allowed the guidewire easily to be passed into the superior vena cava. Ultrasound was used on the right side, and this showed a clear area of peritoneal fluid in the right mid and upper abdomen. Given this, a transverse incision somewhat below the subcostal margin to allow access into that pocket was made and similar dissection as for the left accomplished. Guidewire was easily passed well into the abdominal cavity at this point, and this appeared to be quite satisfactory in terms of final location for the abdominal component of the shunt. With both wires in place, a pocket for the pump over the ribs was created using blunt dissection and the shunt then pulled up from the abdominal incision subcutaneously up to the internal jugular vein incision and then pulled up through that area. The pump was positioned in a location over the ribs away from the actual incision, so this would allow a relatively pain-free pumping of the shunt. The abdominal limb was then placed over the introducer and peel-away catheter and good continuous flow was noted through the shunt at that point indicating adequate location for the abdominal portion of the shunt. The venous portion was then cut off such that the tip would lie within the area around the right atrium, i.e. in an intrathoracic location and this was then positioned using guidewire and a peel-away catheter system without difficulty. The pump was confirmed to flow nicely by Doppler and easily pumped with easy compression and rapid filling of the pump when compressed. The right abdominal incision was then closed as per the left, and the incision over the right jugular vein closed with subdermal 3-0 Vicryl stitch. The guidewire was then removed from the left side at that point. All the primary incisions were then also reinforced with skin abdon. The patient was taken to the recovery room in a satisfactory condition. There were no evident complications. One note is that we evacuated 1 L of ascitic fluid prior to placement of the venous component of the catheter and then inserted 500 mL of saline solution. This dilution of the ascitic fluid, as well as reduction of the volume, would decrease the risk of symptomatic DIC in the postoperative period. Physician butcher's assistant, Ashley Bernabe, played an essential role in assisting in this case, helping to position the patient, retract structures as needed, as well as suturing and cutting sutures when indicated. Her presence improved patient safety and decreased the operative time. Alex Staley MD /[id number]
--- NOTE | 2018-07-19 08:00 | DISCH ---
FINAL DIAGNOSES: 1. Malignant ascites, rapidly recurring after paracentesis. 2. Pancreatic adenocarcinoma with liver metastases. OPERATIVE PROCEDURE: Done on 07/14/2018, insertion of [place] peritoneovenous shunt. SUMMARY: This is a 52-year-old presenting with ascites that rapidly recurs after the paracentesis. Within 3-4 days, he is very tight again and quite uncomfortable and symptomatic. We initially were looking at getting an external drainage catheter put in per Interventional Radiology, but the whole system was going overly too slow, and after further discussion, the patient wished to have a peritoneovenous shunt, which we could put in immediately and would likely achieve a good result. This was done on the date of admission, and the patient has done well postoperatively. His ascites has remained fairly well decompressed, and the pump functions satisfactorily. He will be discharged home today. He will continue his present medications. He will be on the same narcotic regimen he was preoperatively with a fentanyl patch and Dilaudid on a scheduled basis, and that appears to be controlling his surgical pain as well. We will see the patient back in this coming Wednesday to make sure the things are functioning satisfactorily, and once these are healed, we can probably look in terms of restarting some chemotherapy per the [facility] Department.
== END 2018-07-17 08:15 | disposition home or self-care (01) | DRG 406 ==
LOC: JP.SDSSCHI 08:30 → JP.SDS 08:30 → EDSTATUS 11:30 → JP.MS 14:40
PROVIDERS: ADMIT Surgery; ATTEND Surgery
PROC: 0W9G3ZZ Drainage of Peritoneal Cavity, Percutaneous Approach (ICD-10-PCS; principal; 2018-07-14)
PROC: 0JHT0YZ Insertion of Other Device into Trunk Subcutaneous Tissue and Fascia, Open Approach (ICD-10-PCS; principal; 2018-07-14)
PROC: 0W1G3JW Bypass Peritoneal Cavity to Upper Vein with Synthetic Substitute, Percutaneous Approach (ICD-10-PCS; principal; 2018-07-14)
PROC: 30233N1 Transfusion of Nonautologous Red Blood Cells into Peripheral Vein, Percutaneous Approach (ICD-10-PCS; 2018-07-15)
DX: C25.9 Malignant neoplasm of pancreas, unspecified (principal); R18.0 Malignant ascites; C78.7 Secondary malignant neoplasm of liver and intrahepatic bile duct; I10 Essential (primary) hypertension; M19.90 Unspecified osteoarthritis, unspecified site; D64.9 Anemia, unspecified; F32.9 Major depressive disorder, single episode, unspecified; Z90.81 Acquired absence of spleen; Z98.1 Arthrodesis status; Z87.820 Personal history of traumatic brain injury; Z88.1 Allergy status to other antibiotic agents; Z88.5 Allergy status to narcotic agent; Z88.8 Allergy status to other drugs, medicaments and biological substances; Z87.442 Personal history of urinary calculi; Z79.899 Other long term (current) drug therapy; Z95.828 Presence of other vascular implants and grafts
CPT/HCPCS: 36415; 36430; 51702; 76000; 80053; 83735; 84100; 85018; 85027; 85610; 86850; 86900; 86901; 86920; 86922; 94762; A9270-GY; C9113; J0690; J1100; J1170; J1642; J2020; J2405; J2704; J2710; J3010; J3490; J7042; P9016

== ENCOUNTER 2018-07-29 09:06 | Emergency (ER) | payer MEDICARE, OTHER ==
[2018-07-29] MEDS ORDERED: Lactated Ringers 1,000 ML IV ONE (10:16)
[2018-07-29] MEDS ORDERED: Sodium Chloride 0.9% 10 ML Syringe FLUSH PRN (10:16)
--- NOTE | 2018-07-29 10:19 | EDM.PDOC ---
ED HPI GENERAL MEDICAL PROBLEM - General Chief Complaint: General Stated Complaint: VOMITING VERY WEAK Time Seen by Provider: 07/29/18 10:07 Source of Information: Reports: Patient, Family, Old Records, RN Notes Reviewed History Limitations: Reports: No Limitations - History of Present Illness INITIAL COMMENTS - FREE TEXT/NARRATIVE: 52-year-old gentleman presents to emergency department today complaint of weakness nausea and vomiting, he has a known history of pancreatic cancer with metastases he's been off chemotherapy now for 1 month recently had a [place] shunt placed which drains from his peritoneal cavity to return to the venous system. He states he recently had a paracentesis on Wednesday of this week has been using his [place] shunt approximately 15 pumps 6 times a day. No fevers no shortness of breath or chest pain - Related Data Allergies Allergy/AdvReac Type Severity Reaction Status Date / Time adhesive Allergy Intermediate Rash Verified 07/29/18 09:46 ciprofloxacin [From Cipro] Allergy Rash Verified 07/29/18 09:46 levofloxacin [From Levaquin] Allergy Rash Verified 07/29/18 09:46 oxycodone HCl [From Tylox] Allergy Rash Verified 07/29/18 09:46 Home Meds: Home Meds Atenolol [Tenormin] 50 mg PO DAILY 02/04/13 [History] Cyclobenzaprine HCl [Flexeril] 20 mg PO BEDTIME 02/04/13 [History] Gabapentin [Neurontin] 300 mg PO BID 01/24/18 [History] Melatonin 20 mg PO BEDTIME 03/06/18 [History] Hyoscyamine [Hyomax-SL] 0.125 mg SL Q4H PRN #20 tab.sl 03/08/18 [Rx] fentaNYL [Duragesic] 12 mcg TD Q72H #5 patch 03/15/18 [Rx] Diphenhyd/Lidocaine/Nystatin [First-Bxn Mouthwash] 5 ml SSWAL QID #240 ml [Rx] Ondansetron [Zofran ODT] 4 mg PO Q8HR PRN 06/06/18 [History] fentaNYL [Duragesic] 25 mcg TRDERM Q72H 06/08/18 [History] HYDROmorphone HCl [Hydromorphone ER] 8 mg PO Q3H PRN 07/11/18 [History] Diphenoxylate HCl/Atropine [Diphenoxylate-Atrop 2.5-0.025] 1 each PO QID PRN [History] L Acidophil/B Lactis/B Longum [Florajen3] 460 mg PO DAILY 07/14/18 [History] Max3 2 cap PO BID 07/14/18 [History] Mv-Mn/Folic Acid/Lutein/Rzg173 [Mens Multivit High Potency Tab] 1 each PO DAILY 07/14/18 [History] Sennosides/Docusate Sodium [Docusate Sodium-Senna Tablet] 1 each PO DAILY [History] Amylase/Lipase/Protease [Yonatan DR 6,000 Unit] 2 cap PO TID 07/27/18 [History] Past Medical History HEENT History: Reports: Other (See Below) Other HEENT History: deviated septum Cardiovascular History: Reports: Hypertension Gastrointestinal History: Reports: None Other Gastrointestinal History: cancer pancreas and liver Genitourinary History: Reports: Renal Calculus Musculoskeletal History: Reports: Osteoarthritis Neurological History: Reports: Concussion Other Neuro History: TBI Psychiatric History: Reports: None Hematologic History: Reports: Blood Transfusion(s) Immunologic History: Reports: Other (See Below) Other Immunologic History: Pancreatic CA with mets. chemo treatment on hold Oncologic (Cancer) History: Reports: Liver, Metastatic, Pancreatic Other Oncologic History: small bowel Dermatologic History: Reports: Other (See Below) Other Dermatologic History: rash can occur from fentanyl patches - Infectious Disease History Infectious Disease History: Reports: Chicken Pox, MRSA - Past Surgical History Other HEENT Surgeries/Procedures: metal taken out of eye Other GI Surgeries/Procedures: EXPLORATORY LAP 40 YEARS AGO, SPLENECTOMY AT THAT TIME ALSO. keri shunt Neurological Surgical History: Reports: Spinal Fusion Musculoskeletal Surgical History: Reports: Other (See Below) Other Musculoskeletal Surgeries/Procedures:: RODS IN LOW BACK AND HARDWARE IN RIGHT ANKLE Social & Family History - Family History Family Medical History: Noncontributory - Tobacco Use Smoking Status *Q: Never Smoker - Caffeine Use Caffeine Use: Reports: None - Living Situation & Occupation Living situation: Reports: , with Family Occupation: Disabled ED ROS GENERAL - Review of Systems Review Of Systems: See Below Constitutional: Reports: Weakness, Fatigue HEENT: Reports: No Symptoms Respiratory: Reports: No Symptoms Cardiovascular: Reports: No Symptoms GI/Abdominal: Reports: Distension : Reports: No Symptoms ED EXAM, GENERAL - Physical Exam Exam: See Below Exam Limited By: No Limitations General Appearance: Alert, WD/WN, No Apparent Distress Throat/Mouth: No Airway Compromise Respiratory/Chest: No Respiratory Distress, Lungs Clear, Normal Breath Sounds, No Accessory Muscle Use, Chest Non-Tender Cardiovascular: Regular Rate, Rhythm, No Murmur GI/Abdominal: Soft, Non-Tender, Distended Course - Vital Signs Last Recorded V/S: Last Vital Signs Temp 98.8 F 07/29/18 09:52 Pulse 62 07/29/18 12:01 Resp 11 L 07/29/18 09:52 BP 127/87 07/29/18 12:01 Pulse Ox 95 07/29/18 12:01 - Orders/Labs/Meds Orders: Active Orders 24 hr Category Date Time Status Enema [RC] ASDIRECTED Care 07/29/18 11:41 Active Peripheral IV Care [RC] . DIRECTED Care 07/29/18 10:16 Active Sodium Chloride 0.9% [Saline Flush] Med 07/29/18 10:16 Active 10 ml FLUSH ASDIRECTED PRN Peripheral IV Insertion Adult [OM.PC] Urgent Oth 07/29/18 10:16 Ordered Medication Orders Sodium Chloride (Saline Flush) 10 ml FLUSH ASDIRECTED PRN PRN Reason: Keep Vein Open Last Admin: 07/29/18 10:32 Dose: 10 ml Labs: Laboratory Tests 07/29/18 07/29/18 07/29/18 Range/Units 10:29 10:29 10:29 WBC 6.2 (4.5-11.0) K/uL RBC 3.59 L (4.30-5.90) M/uL Hgb 10.8 L (12.0-15.0) g/dL Hct 34.2 L (40.0-54.0) % MCV 95 (80-98) fL MCH 30 (27-31) pg MCHC 32 (32-36) % Plt Count 391 (150-400) K/uL Neut % (Auto) 72 H (36-66) % Lymph % (Auto) 18 L (24-44) % [place] % (Auto) 7 H (2-6) % Eos % (Auto) 2 (2-4) % Baso % (Auto) 1 (0-1) % Sodium 137 L (140-148) mmol/L Potassium 3.9 (3.6-5.2) mmol/L Chloride 102 (100-108) mmol/L Carbon Dioxide 24 (21-32) mmol/L Anion Gap 14.9 H (5.0-14.0) mmol/L BUN 10 (7-18) mg/dL Creatinine 0.7 L (0.8-1.3) mg/dL Est Cr Clr Drug Dosing 108.36 mL/min Estimated GFR (MDRD) > 60 (>60) Glucose 194 H (74-106) mg/dL Lactic Acid 2.2 H (0.4-2.0) mmol/L Calcium 8.4 L (8.5-10.1) mg/dL Total Bilirubin 0.9 D (0.2-1.0) mg/dL AST 27 (15-37) U/L ALT 17 D (12-78) U/L Alkaline Phosphatase 554 H D (46-116) U/L Total Protein 6.0 L (6.4-8.2) g/dL Albumin 1.6 L (3.4-5.0) g/dL Globulin 4.4 H (2.3-3.5) g/dL Albumin/Globulin Ratio 0.4 L (1.2-2.2) Meds: Medications Generic Name Dose Route Start Last Admin Trade Name Freq PRN Reason Stop Dose Admin Sodium Chloride 10 ml 07/29/18 10:16 07/29/18 10:32 Saline Flush FLUSH 10 ml ASDIRECTED PRN Administration Keep Vein Open Discontinued Medications Generic Name Dose Route Start Last Admin Trade Name Freq PRN Reason Stop Dose Admin Lactated Ringer's 1,000 mls @ 500 mls/hr 07/29/18 10:16 07/29/18 10:32 Ringers, Lactated IV 07/29/18 12:15 500 mls/hr BOLUS ONE Administration - Re-Assessments/Exams Free Text/Narrative Re-Assessment/Exam: 07/29/18 11:[address] Obrien for possible paracentesis ultrasound was done however ultrasound revealed small amount of fluid in the abdomen large amount of stool, paracentesis was canceled by Dr. Obrien Departure - Departure Time of Disposition: 14:21 Disposition: Home, Self-Care 01 Condition: Poor Clinical Impression: Pancreatic carcinoma metastatic to liver, Weakness - Discharge Information Referrals: Hema Mcnally MD [Primary Care Provider] - Forms: ED Department Discharge Additional Instructions: Keep your follow-up appointment with Dr. Staley on Wednesday, call or return to the emergency department worsening symptoms - My Orders Last 24 Hours: My Active Orders 07/29/18 10:16 Peripheral IV Care [RC] . DIRECTED Sodium Chloride 0.9% [Saline Flush] 10 ml FLUSH ASDIRECTED PRN Peripheral IV Insertion Adult [OM.PC] Urgent 07/29/18 11:41 Enema [RC] ASDIRECTED - Assessment/Plan Last 24 Hours: My Active Orders 07/29/18 10:16 Peripheral IV Care [RC] . DIRECTED Sodium Chloride 0.9% [Saline Flush] 10 ml FLUSH ASDIRECTED PRN Peripheral IV Insertion Adult [OM.PC] Urgent 07/29/18 11:41 Enema [RC] ASDIRECTED Plan: Assessment Acuity = acute Site and laterality = weakness, and a patient known history of pancreatic cancer with metastases Etiology = probable underlying disease Manifestations = none Location of injury = Home Lab values = hemoglobin low 10.8 consistent normochromic anemia CMP stable ultrasound SHOWS MODERATE AMOUNT OF FLUID BUT NO SIGNIFICANT PLACED TO PERFORM PARACENTESIS, PLAIN FILM ABDOMEN IS UNREMARKABLE Plan I did review lab work with him as well as image study results he has planned follow-up Gen. surgery on Wednesday Dr. Obrien elected not to proceed with paracentesis today This note was dictated using Ensenda voice recognition software please call with any questions on syntax or grammar.
[2018-07-29 12:01] VITALS: BP 127/87
--- NOTE | 2018-07-29 12:47 | CRLUS ---
INDICATION: Assess for ascites. IMPRESSION: CT dated 07/27/2018. TECHNIQUE: Grayscale ultrasound of the quadrants, and the lower abdomen was performed. FINDINGS: There is a small amount of ascites present. Incidentally noted are multiple thickened bowel loops, similar to seen on CT. IMPRESSION: Small amount of ascites. Dictated by Stanton Guevara MD @ Jul 29 2018 12:30PM Signed by Dr. Stanton Guevara @ Jul 29 2018 12:44PM
--- NOTE | 2018-07-29 14:14 | CRLCR ---
INDICATION: Abdomen pain, pancreatic cancer, on narcotics TECHNIQUE: Abdominal radiograph 2 views COMPARISON: None FINDINGS: Bowel: The bowel gas pattern is normal without evidence of bowel obstruction. The paucity of bowel gas limits evaluation for bowel obstruction. Numerous surgical on omental clips are seen throughout the abdomen. Soft tissue: No evidence of pneumoperitoneum present. No suspicious calcifications noted. Bone: Unremarkable for age. Miscellaneous: Posterior stabilization rods are present in the thoracolumbar region. IMPRESSION: 1. Unremarkable appearance of the visualized abdomen. Dictated by Jaswant Muro MD @ 07/29/2018 2:11:02 PM Dictated by: Jaswant Muro MD @ 07/29/2018 14:11:07 (Electronically Signed)
== END 2018-07-29 15:17 | disposition home or self-care (01) ==
LOC: JP.ED 09:06
DX: C25.9 Malignant neoplasm of pancreas, unspecified (principal); C78.7 Secondary malignant neoplasm of liver and intrahepatic bile duct; I10 Essential (primary) hypertension; Z91.09 Other allergy status, other than to drugs and biological substances; Z88.1 Allergy status to other antibiotic agents; Z88.6 Allergy status to analgesic agent; Z79.899 Other long term (current) drug therapy
CPT/HCPCS: 36415; 74018; 76705; 80053; 83605; 85025; 96360; 99284; J7120

== ENCOUNTER 2018-08-13 15:11 | Emergency (ER) | payer MEDICARE, OTHER ==
[2018-08-13 15:25] VITALS: BP 145/89
[2018-08-13] MEDS ORDERED: Sodium Chloride 0.9% 10 ML Syringe FLUSH PRN (16:00)
[2018-08-13] MEDS ORDERED: ceFAZolin 1 GM in Premix Bag 1 BAG IV ONE ×2 (16:00→16:14)
--- NOTE | 2018-08-13 16:13 | EDM.PDOC ---
ED HPI GENERAL MEDICAL PROBLEM - General Chief Complaint: Wound Recheck Stated Complaint: SHUNT LEAKING? Time Seen by Provider: 08/13/18 15:50 Source of Information: Reports: Patient History Limitations: Reports: No Limitations - History of Present Illness INITIAL COMMENTS - FREE TEXT/NARRATIVE: Patient presents for evaluation of a abdominal surgical incision which opened spontaneously today while he was out shopping. Patient has metastatic cancer and had a shunt placed to help with abdominal fluid buildup. While he and his were out walking around shopping, he felt fluid and his shirt and looked down to find his shirt had been saturated. The horizontal surgical incision had opened and fluid was coming out. Fluid was clear with some color. The incision area is nontender. No redness. He has been feeling well otherwise since the procedure was done several weeks ago. Onset: Today Duration: Hour(s): (2) Severity: Mild - Related Data Allergies Allergy/AdvReac Type Severity Reaction Status Date / Time adhesive Allergy Intermediate Rash Verified 07/29/18 09:46 ciprofloxacin [From Cipro] Allergy Rash Verified 07/29/18 09:46 levofloxacin [From Levaquin] Allergy Rash Verified 07/29/18 09:46 oxycodone HCl [From Tylox] Allergy Rash Verified 07/29/18 09:46 Home Meds: Home Meds Atenolol [Tenormin] 50 mg PO DAILY 02/04/13 [History] Cyclobenzaprine HCl [Flexeril] 20 mg PO BEDTIME 02/04/13 [History] Gabapentin [Neurontin] 300 mg PO BID 01/24/18 [History] Melatonin 20 mg PO BEDTIME 03/06/18 [History] Hyoscyamine [Hyomax-SL] 0.125 mg SL Q4H PRN #20 tab.sl 03/08/18 [Rx] fentaNYL [Duragesic] 12 mcg TD Q72H #5 patch 03/15/18 [Rx] Diphenhyd/Lidocaine/Nystatin [First-Bxn Mouthwash] 5 ml SSWAL QID #240 ml [Rx] Ondansetron [Zofran ODT] 4 mg PO Q8HR PRN 06/06/18 [History] fentaNYL [Duragesic] 25 mcg TRDERM Q72H 06/08/18 [History] HYDROmorphone HCl [Hydromorphone ER] 8 mg PO Q3H PRN 07/11/18 [History] Diphenoxylate HCl/Atropine [Diphenoxylate-Atrop 2.5-0.025] 1 each PO QID PRN [History] L Acidophil/B Lactis/B Longum [Florajen3] 460 mg PO DAILY 07/14/18 [History] Max3 2 cap PO BID 07/14/18 [History] Mv-Mn/Folic Acid/Lutein/Mct313 [Mens Multivit High Potency Tab] 1 each PO DAILY 07/14/18 [History] Sennosides/Docusate Sodium [Docusate Sodium-Senna Tablet] 1 each PO DAILY [History] Amylase/Lipase/Protease [Yonatan ROBERSON 6,000 Unit] 2 cap PO TID 07/27/18 [History] Past Medical History HEENT History: Reports: Other (See Below) Other HEENT History: deviated septum Cardiovascular History: Reports: Hypertension Gastrointestinal History: Reports: None Other Gastrointestinal History: cancer pancreas and liver Genitourinary History: Reports: Renal Calculus Musculoskeletal History: Reports: Osteoarthritis Neurological History: Reports: Concussion Other Neuro History: TBI Psychiatric History: Reports: None Hematologic History: Reports: Blood Transfusion(s) Immunologic History: Reports: Other (See Below) Other Immunologic History: Pancreatic CA with mets. chemo treatment on hold Oncologic (Cancer) History: Reports: Liver, Metastatic, Pancreatic Other Oncologic History: small bowel Dermatologic History: Reports: Other (See Below) Other Dermatologic History: rash can occur from fentanyl patches - Infectious Disease History Infectious Disease History: Reports: Chicken Pox, MRSA - Past Surgical History HEENT Surgical History: Reports: Other (See Below) Other HEENT Surgeries/Procedures: metal taken out of eye Cardiovascular Surgical History: Reports: None Other GI Surgeries/Procedures: EXPLORATORY LAP 40 YEARS AGO, SPLENECTOMY AT THAT TIME ALSO. keri shunt Male Surgical History: Reports: None Neurological Surgical History: Reports: Spinal Fusion Musculoskeletal Surgical History: Reports: Other (See Below) Other Musculoskeletal Surgeries/Procedures:: RODS IN LOW BACK AND HARDWARE IN RIGHT ANKLE Social & Family History - Family History Family Medical History: Noncontributory - Tobacco Use Smoking Status *Q: Unknown Ever Smoked - Caffeine Use Caffeine Use: Reports: None - Living Situation & Occupation Living situation: Reports: , with Family Occupation: Disabled ED ROS GENERAL - Review of Systems Review Of Systems: See Below Skin: Reports: Wound (Abdominal surgical incision, now open, as described.) ED EXAM, SKIN/RASH Exam: See Below Exam Limited By: No Limitations General Appearance: Alert, No Apparent Distress GI/Abdominal: Other (There is a 3 cm horizontal incision in the right upper quadrant region of the abdomen. The shunt tubing is visible inside the incision. There is blood tinged serous fluid draining from the incision slowly.) Course - Vital Signs Last Recorded V/S: Last Vital Signs Temp 36.6 C 08/13/18 15:36 Pulse 69 08/13/18 15:36 Resp 18 08/13/18 15:36 BP 145/89 H 08/13/18 15:36 Pulse Ox 100 08/13/18 15:36 - Orders/Labs/Meds Orders: Active Orders 24 hr Category Date Time Status Saline Lock Insert [OM.PC] Routine Oth 08/13/18 16:00 Ordered Meds: Medications Discontinued Medications Generic Name Dose Route Start Last Admin Trade Name Jennifer PRN Reason Stop Dose Admin Heparin Sodium (Porcine) 500 units 08/13/18 17:22 08/13/18 17:27 Heparin Lock Flush 100 Units/Ml FLUSH 08/13/18 17:23 500 units ASDIRECTED ONE Administration Heparin Sodium (Porcine) Confirm 08/13/18 17:24 08/13/18 17:29 Heparin Lock Flush 100 Units/Ml Administered 08/13/18 17:25 Not Given Dose 500 units .ROUTE .STK-MED ONE Cefazolin Sodium/Dextrose 1 gm 50 mls @ 100 mls/hr 08/13/18 16:00 08/13/18 17 :21 / Premix IV 08/13/18 16:29 Not Given ONETIME ONE Cefazolin Sodium/Dextrose 1 gm 50 mls @ 100 mls/hr 08/13/18 16:14 08/13/18 17 :21 / Premix IV 08/13/18 16:43 Not Given ONETIME ONE Cefazolin Sodium 1 gm/ Sodium 50 mls @ 100 mls/hr 08/13/18 16:16 08/13/18 16: 23 Chloride IV 08/13/18 16:45 100 mls/hr ONETIME ONE Administration Linezolid Confirm 08/13/18 16:46 08/13/18 17:21 Zyvox Administered 08/13/18 16:47 Not Given Dose 300 mls @ as directed .ROUTE .STK-MED ONE Linezolid 600 mg/ Premix 300 mls @ 300 mls/hr 08/13/18 17:17 08/13/18 17:20 IV 08/13/18 18:16 300 mls/hr ONETIME ONE Administration Lidocaine/Epinephrine Confirm 08/13/18 16:54 08/13/18 17:21 Xylocaine 1% With Epinephrine 1:100,000 Administered 08/13/18 16:55 Not Given Dose 50 ml .ROUTE .STK-MED ONE Lidocaine/Epinephrine 10 ml 08/13/18 17:19 08/13/18 17:20 Xylocaine 1% With Epinephrine 1:100,000 INJECT 08/13/18 17:20 10 ml STAT ONE Administration Mupirocin 22 gm 08/13/18 17:19 08/13/18 17:20 Bactroban Oint TOP 08/13/18 17:20 1 applic ONETIME ONE Administration Sodium Chloride 10 ml 08/13/18 16:00 08/13/18 16:24 Saline Flush FLUSH 10 ml ASDIRECTED PRN Administration Keep Vein Open - Re-Assessments/Exams Free Text/Narrative Re-Assessment/Exam: 08/13/18 20:02 I contacted his surgeon, Dr. Mainor Staley. He will come and evaluate the area and likely close the wound with sutures. Dr. Staley approximated the wound edges. He will have the patient use Septra DS and a short-term along with mupirocin ointment. He will follow up with Dr. Staley at the end of a upcoming trip. Return to ER if symptoms worsen in any way. 08/13/18 20:02 Departure - Departure Time of Disposition: 17:40 Disposition: Home, Self-Care 01 Condition: Good Clinical Impression: Dehiscence of closure of muscle or muscle flap - Discharge Information *PRESCRIPTION DRUG MONITORING PROGRAM REVIEWED*: Not Applicable *COPY OF PRESCRIPTION DRUG MONITORING REPORT IN PATIENT FABIO: Not Applicable Instructions: Wound Dehiscence, [id number] Referrals: Hema Mcnally MD [Primary Care Provider] - Forms: ED Department Discharge Additional Instructions: Take Septra DS 1 tab by mouth twice daily for 5 days. Start that tonight. Apply mupirocin ointment to wound twice daily. Follow up with Dr Staley when you return from your trip. Dressing changes as described. - My Orders Last 24 Hours: My Active Orders 08/13/18 16:00 Saline Lock Insert [OM.PC] Routine - Assessment/Plan Last 24 Hours: My Active Orders 08/13/18 16:00 Saline Lock Insert [OM.PC] Routine
[2018-08-13] MEDS ORDERED: ceFAZolin 1 GM in Sodium Chloride 0.9% 50 ML IV ONE (16:16)
[2018-08-13] MEDS ORDERED: Lidocaine 1% with EPINEPHrine 1:100,000 50 ML MDV ONE (16:54)
[2018-08-13] MEDS ORDERED: Linezolid 600 MG in Premix Bag 1 BAG IV ONE (17:17)
[2018-08-13] MEDS ORDERED: Lidocaine 1% with EPINEPHrine 1:100,000 50 ML MDV INJECT ONE (17:19)
[2018-08-13] MEDS ORDERED: Mupirocin Oint 22 GM Tube TOP ONE (17:19)
--- NOTE | 2018-08-15 09:53 | OR ---
DATE OF PROCEDURE: 08/13/2018 PREOPERATIVE DIAGNOSIS: Opening up of incision overlying pump involving Cuauhtemoc shunt. POSTOPERATIVE DIAGNOSIS: Opening up of incision overlying pump involving Cuauhtemoc shunt. OPERATIVE PROCEDURE: Revision of pump site incision at [place] shunt site ([id number]). ANESTHESIA: Local. INDICATION FOR PROCEDURE: Please see attached emergency room note. DETAILS OF PROCEDURE: The patient was placed in supine position in the emergency room. The area was carefully prepped and draped, and initially anesthetized on the skin edges with 1% lidocaine. The wound was then irrigated with Zyvox containing saline solution. This incision was then revised such that it would be somewhat tighter on the shunt, closing the subcutaneous tissue in the area adjacent to the shunt and then underlying the incision itself. Once this pocket was revised in the deeper tissues, this was then closed with 2 layers of running 3-0 Prolene stitch. Double layer of suture was used so as to minimize chances of any subsequent leaking. Prior to final closure, 10 mL of Zyvox containing fluid was injected around the pump and left in place and a dressing applied. Wound care instructions were given. The patient will be following up as per the emergency room note. Alex Staley MD /[id number]
--- NOTE | 2018-08-16 15:15 | ER ---
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 In general, this has worked fairly well for him. He has had some fluid around the pump and incision just below that. This came open today, but it does not appear to be grossly infected. I think that simply the pressure of the fluid, as well as the manipulation of across the pump periodically through the day resulted in the area opening up. On inspection of the entire incision used for creation of the pouch for the pump, it was opened up. Again, the fluid was clear, and there were no signs of soft tissue infection or infection in the fluid itself. The options of removal of the shunt versus attempting to save it by administration of antibiotics and closing this incision were gone over, and we elected to close the incision. The patient was given IV Ancef and subsequently IV Zyvox, and Zyvox was then also used for irrigation during the closing process and will be sent home with Septra DS one tablet b.i.d. x5 days. He is aware there is a possibility that the shunt may become infected, in which case we would need to be remove it, but at this point, I think there is a reasonable chance we will be able to preserve the shunt, noting it is functioning well, compressing and filling rapidly when the pump is being compressed. The patient will be going to [place] this week to look at some possible novel treatments for his pancreatic carcinoma and he has been instructed to contact us when he gets back, or earlier than that, if he has any additional problems. Alex Staley MD /[id number]
== END 2018-08-13 17:51 | disposition home or self-care (01) ==
LOC: JP.ED 15:11
DX: T81.30XA Disruption of wound, unspecified, initial encounter (principal); I10 Essential (primary) hypertension; Z88.1 Allergy status to other antibiotic agents; Z91.09 Other allergy status, other than to drugs and biological substances; Z88.6 Allergy status to analgesic agent; Z79.899 Other long term (current) drug therapy
CPT/HCPCS: 96365; 96367; 99282; A9270; J0690; J1642; J2020; J7050

== ENCOUNTER 2018-08-18 16:43 | Emergency (ER) | payer MEDICARE ==
[2018-08-18 17:02] VITALS: BP 165/92
[2018-08-18] MEDS ORDERED: Sodium Chloride 0.9% 10 ML Syringe FLUSH PRN (18:20)
[2018-08-18] MEDS ORDERED: Metoclopramide 10 MG/2 ML SDV IVPUSH ONE (18:21)
--- NOTE | 2018-08-18 18:36 | EDM.PDOC ---
ED HPI GENERAL MEDICAL PROBLEM - General Chief Complaint: Gastrointestinal Problem Stated Complaint: WEAK,NAUSEA Time Seen by Provider: 08/18/18 18:20 Source of Information: Reports: Patient, Family, Old Records, RN History Limitations: Reports: No Limitations - History of Present Illness INITIAL COMMENTS - FREE TEXT/NARRATIVE: 52 yo male with known metastatic dz to the liver and ongoing ascites that has required occasional peritoneal taps for control. This past week he was put on TMP/SMZ by Dr. Staley for a wound dehiscence and has been experiencing some ongoing nausea with some vomiting refractory to the Zofran he is currently on for this. He finished his last dose of the Bactrim this morning. Came to the ER tonight because his nausea was worse and he thought he needed another peritoneal tap. He is not having any fever or bleeding. His urine is reportedly darker than usual. Onset: Gradual Onset Date: 08/12/18 Duration: Day(s):, Getting Worse Location: Reports: Abdomen Quality: Reports: Pressure (abdomen) Severity: Moderate Improves with: Reports: Other (peritoneal tap) Worsens with: Reports: Other (time) Context: Reports: Other (See HPI) Associated Symptoms: Reports: Malaise, Nausea/Vomiting. Denies: Diaphoresis, Fever/Chills, Rash, Shortness of Breath, Syncope Treatments ENVIRONMENTAL SERVICES ATTENDANT: Reports: Other (see below) (Zofran for nausea without full relief) Left Abdomen Pain Score (Numeric/FACES): 8 - Related Data Allergies Allergy/AdvReac Type Severity Reaction Status Date / Time adhesive Allergy Intermediate Rash Verified 07/29/18 09:46 ciprofloxacin [From Cipro] Allergy Rash Verified 07/29/18 09:46 levofloxacin [From Levaquin] Allergy Rash Verified 07/29/18 09:46 oxycodone HCl [From Tylox] Allergy Rash Verified 07/29/18 09:46 Home Meds: Home Meds Atenolol [Tenormin] 50 mg PO DAILY 02/04/13 [History] Cyclobenzaprine HCl [Flexeril] 20 mg PO BEDTIME 02/04/13 [History] Gabapentin [Neurontin] 300 mg PO BID 01/24/18 [History] Melatonin 20 mg PO BEDTIME 03/06/18 [History] Hyoscyamine [Hyomax-SL] 0.125 mg SL Q4H PRN #20 tab.sl 03/08/18 [Rx] fentaNYL [Duragesic] 12 mcg TD Q72H #5 patch 03/15/18 [Rx] Diphenhyd/Lidocaine/Nystatin [First-Bxn Mouthwash] 5 ml SSWAL QID #240 ml [Rx] Ondansetron [Zofran ODT] 4 mg PO Q8HR PRN 06/06/18 [History] fentaNYL [Duragesic] 25 mcg TRDERM Q72H 06/08/18 [History] HYDROmorphone HCl [Hydromorphone ER] 8 mg PO Q3H PRN 07/11/18 [History] Diphenoxylate HCl/Atropine [Diphenoxylate-Atrop 2.5-0.025] 1 each PO QID PRN [History] L Acidophil/B Lactis/B Longum [Florajen3] 460 mg PO DAILY 07/14/18 [History] Max3 2 cap PO BID 07/14/18 [History] Mv-Mn/Folic Acid/Lutein/Tgs190 [Mens Multivit High Potency Tab] 1 each PO DAILY 07/14/18 [History] Sennosides/Docusate Sodium [Docusate Sodium-Senna Tablet] 1 each PO DAILY [History] Amylase/Lipase/Protease [Yonatan DR 6,000 Unit] 2 cap PO TID 07/27/18 [History] Past Medical History HEENT History: Reports: Other (See Below) Other HEENT History: deviated septum Cardiovascular History: Reports: Hypertension Gastrointestinal History: Reports: None Other Gastrointestinal History: cancer pancreas and liver Genitourinary History: Reports: Renal Calculus Musculoskeletal History: Reports: Osteoarthritis Neurological History: Reports: Concussion Other Neuro History: TBI Psychiatric History: Reports: None Hematologic History: Reports: Blood Transfusion(s) Immunologic History: Reports: Other (See Below) Other Immunologic History: Pancreatic CA with mets. chemo treatment on hold Oncologic (Cancer) History: Reports: Liver, Metastatic, Pancreatic Other Oncologic History: small bowel Dermatologic History: Reports: Other (See Below) Other Dermatologic History: rash can occur from fentanyl patches - Infectious Disease History Infectious Disease History: Reports: Chicken Pox, MRSA - Past Surgical History HEENT Surgical History: Reports: Other (See Below) Other HEENT Surgeries/Procedures: metal taken out of eye Cardiovascular Surgical History: Reports: None Other GI Surgeries/Procedures: EXPLORATORY LAP 40 YEARS AGO, SPLENECTOMY AT THAT TIME ALSO. keri shunt Male Surgical History: Reports: None Neurological Surgical History: Reports: Spinal Fusion Musculoskeletal Surgical History: Reports: Other (See Below) Other Musculoskeletal Surgeries/Procedures:: RODS IN LOW BACK AND HARDWARE IN RIGHT ANKLE Social & Family History - Family History Family Medical History: Noncontributory - Tobacco Use Smoking Status *Q: Never Smoker - Caffeine Use Caffeine Use: Reports: None - Recreational Drug Use Recreational Drug Use: No - Living Situation & Occupation Living situation: Reports: , with Family Occupation: Disabled ED ROS GENERAL - Review of Systems Review Of Systems: See Below Constitutional: Reports: Malaise, Decreased Appetite HEENT: Reports: No Symptoms Respiratory: Reports: No Symptoms Cardiovascular: Reports: No Symptoms Endocrine: Reports: No Symptoms GI/Abdominal: Reports: Abdominal Pain (pressure from increasing ascites), Anorexia, Nausea, Vomiting. Denies: Black Stool, Bloody Stool, Constipation, Diarrhea, Distension, Flatus, Hematemesis, Hematochezia : Reports: No Symptoms Musculoskeletal: Reports: No Symptoms Skin: Reports: No Symptoms Neurological: Reports: No Symptoms ED EXAM, GI/ABD - Physical Exam Exam: See Below Exam Limited By: No Limitations General Appearance: Alert, No Apparent Distress, Thin Eyes: Bilateral: Normal Appearance Ears: Normal External Exam, Normal Canal, Hearing Grossly Normal Nose: Normal Inspection, No Blood Throat/Mouth: Normal Inspection, Normal Lips, Normal Oropharynx, Normal Voice, No Airway Compromise Head: Atraumatic, Normocephalic Neck: Normal Inspection, Non-Tender Respiratory/Chest: No Respiratory Distress, Lungs Clear, Normal Breath Sounds, No Accessory Muscle Use Cardiovascular: Regular Rate, Rhythm, No Edema GI/Abdominal Exam: Normal Bowel Sounds, Distended (ascites), Tender (minimal). No: No Distention, Guarding, Rigid, Rebound Extremities: Normal Inspection, Normal Range of Motion, Non-Tender, Pedal Edema (trace below the knees bilaterally). No: No Pedal Edema Neurological: Alert, Oriented, CN II-XII Intact, Normal Cognition, No Motor/ Sensory Deficits Psychiatric: Normal Affect, Normal Mood Skin Exam: Warm, Dry, Intact, Normal Color, No Rash Course - Vital Signs Text/Narrative:: Dr. De La Cruz called @ 1912h Last Recorded V/S: Last Vital Signs Temp 36.8 C 08/18/18 17:01 Pulse 73 08/18/18 17:01 Resp 20 08/18/18 17:01 BP 165/92 H 08/18/18 17:01 Pulse Ox 94 L 08/18/18 17:01 - Orders/Labs/Meds Orders: Active Orders 24 hr Category Date Time Status Sodium Chloride 0.9% [Saline Flush] Med 08/18/18 18:20 Active 10 ml FLUSH ASDIRECTED PRN Saline Lock Insert [OM.PC] Routine Oth 08/18/18 18:20 Ordered Medication Orders Sodium Chloride (Saline Flush) 10 ml FLUSH ASDIRECTED PRN PRN Reason: Keep Vein Open Last Admin: 08/18/18 18:45 Dose: 10 ml Labs: Laboratory Tests 08/18/18 08/18/18 Range/Units 18:20 18:20 WBC 6.9 (4.5-11.0) K/uL RBC 3.07 L (4.30-5.90) M/uL Hgb 9.4 L (12.0-15.0) g/dL Hct 29.9 L (40.0-54.0) % MCV 97 (80-98) fL MCH 31 (27-31) pg MCHC 31 L (32-36) % Plt Count 302 (150-400) K/uL Sodium 137 L (140-148) mmol/L Potassium 4.3 (3.6-5.2) mmol/L Chloride 103 (100-108) mmol/L Carbon Dioxide 29 (21-32) mmol/L Anion Gap 9.3 (5.0-14.0) mmol/L BUN 18 D (7-18) mg/dL Creatinine 0.9 (0.8-1.3) mg/dL Est Cr Clr Drug Dosing 90.78 mL/min Estimated GFR (MDRD) > 60 (>60) Glucose 121 H (74-106) mg/dL Calcium 8.7 (8.5-10.1) mg/dL Meds: Medications Generic Name Dose Route Start Last Admin Trade Name Freq PRN Reason Stop Dose Admin Sodium Chloride 10 ml 08/18/18 18:20 08/18/18 18:45 Saline Flush FLUSH 10 ml ASDIRECTED PRN Administration Keep Vein Open Discontinued Medications Generic Name Dose Route Start Last Admin Trade Name Thomasq PRN Reason Stop Dose Admin Sodium Chloride 500 mls @ 1,000 mls/hr 08/18/18 19:10 08/18/18 19:23 Normal Saline IV 08/18/18 19:39 1,000 mls/hr .BOLUS ONE Administration Metoclopramide HCl 10 mg 08/18/18 18:21 08/18/18 18:46 Reglan IVPUSH 08/18/18 18:22 10 mg ONETIME ONE Administration Departure - Departure Time of Disposition: 20:05 Disposition: Home, Self-Care 01 Condition: Fair Clinical Impression: Nausea Ascites Qualifiers: Ascites type: malignant Qualified Code(s): R18.0 - Malignant ascites - Discharge Information *PRESCRIPTION DRUG MONITORING PROGRAM REVIEWED*: No *COPY OF PRESCRIPTION DRUG MONITORING REPORT IN PATIENT FABIO: No Instructions: Nausea, Adult Referrals: Hema Mcnally MD [Primary Care Provider] - Forms: ED Department Discharge Additional Instructions: Return at 0730h tomorrow and report to the outpatient area for paracentesis. Continue your current medication. If your nausea returns tomorrow discuss this with your primary, hopefully it will stay away now that you are off the TMP/ SMZ. - My Orders Last 24 Hours: My Active Orders 08/18/18 18:20 Sodium Chloride 0.9% [Saline Flush] 10 ml FLUSH ASDIRECTED PRN Saline Lock Insert [OM.PC] Routine - Assessment/Plan Last 24 Hours: My Active Orders 08/18/18 18:20 Sodium Chloride 0.9% [Saline Flush] 10 ml FLUSH ASDIRECTED PRN Saline Lock Insert [OM.PC] Routine
[2018-08-18] MEDS ORDERED: Sodium Chloride 0.9% 500 ML IV ONE (19:10)
== END 2018-08-18 20:31 | disposition home or self-care (01) ==
LOC: JP.ED 16:43
DX: R11.2 Nausea with vomiting, unspecified (principal); R18.0 Malignant ascites; I10 Essential (primary) hypertension; Z85.07 Personal history of malignant neoplasm of pancreas; Z85.05 Personal history of malignant neoplasm of liver; Z79.899 Other long term (current) drug therapy; Z91.09 Other allergy status, other than to drugs and biological substances; Z88.1 Allergy status to other antibiotic agents; Z88.6 Allergy status to analgesic agent
CPT/HCPCS: 36415; 80048; 85027; 96374; 99283; J2765; J7040

== ENCOUNTER 2018-08-20 08:00 | Emergency (ER) | payer MEDICARE ==
[2018-08-20 08:27] VITALS: BP 139/97
--- NOTE | 2018-08-20 08:28 | EDM.PDOC ---
ED HPI GENERAL MEDICAL PROBLEM - General Chief Complaint: Wound Recheck Stated Complaint: INCISSION OPENED UP Time Seen by Provider: 08/20/18 08:20 Source of Information: Reports: Patient History Limitations: Reports: No Limitations - History of Present Illness INITIAL COMMENTS - FREE TEXT/NARRATIVE: 52-year-old male has upper abdominal incisions from a Fonda shunt to reduce the pressure from developing ascites, and he started developing leaking from the left incision this morning. He was told to come in and be evaluated by his surgeon if any problems develop. Onset: Sudden Duration: Hour(s): (Within the last couple hours) Location: Reports: Abdomen Associated Symptoms: Reports: Weakness. Denies: Confusion, Fever/Chills - Related Data Allergies Allergy/AdvReac Type Severity Reaction Status Date / Time adhesive Allergy Intermediate Rash Verified 08/20/18 08:24 ciprofloxacin [From Cipro] Allergy Rash Verified 08/20/18 08:24 levofloxacin [From Levaquin] Allergy Rash Verified 08/20/18 08:24 oxycodone HCl [From Tylox] Allergy Rash Verified 08/20/18 08:24 Home Meds: Home Meds Atenolol [Tenormin] 50 mg PO DAILY 02/04/13 [History] Cyclobenzaprine HCl [Flexeril] 20 mg PO BEDTIME 02/04/13 [History] Gabapentin [Neurontin] 300 mg PO BID 01/24/18 [History] Melatonin 20 mg PO BEDTIME 03/06/18 [History] Hyoscyamine [Hyomax-SL] 0.125 mg SL Q4H PRN #20 tab.sl 03/08/18 [Rx] fentaNYL [Duragesic] 12 mcg TD Q72H #5 patch 03/15/18 [Rx] Diphenhyd/Lidocaine/Nystatin [First-Bxn Mouthwash] 5 ml SSWAL QID #240 ml [Rx] Ondansetron [Zofran ODT] 4 mg PO Q8HR PRN 06/06/18 [History] fentaNYL [Duragesic] 25 mcg TRDERM Q72H 06/08/18 [History] HYDROmorphone HCl [Hydromorphone ER] 8 mg PO Q3H PRN 07/11/18 [History] Diphenoxylate HCl/Atropine [Diphenoxylate-Atrop 2.5-0.025] 1 each PO QID PRN [History] L Acidophil/B Lactis/B Longum [Florajen3] 460 mg PO DAILY 07/14/18 [History] Max3 2 cap PO BID 07/14/18 [History] Mv-Mn/Folic Acid/Lutein/Lnm195 [Mens Multivit High Potency Tab] 1 each PO DAILY 07/14/18 [History] Sennosides/Docusate Sodium [Docusate Sodium-Senna Tablet] 1 each PO DAILY [History] Amylase/Lipase/Protease [Yonatan ROBERSON 6,000 Unit] 2 cap PO TID 07/27/18 [History] Past Medical History HEENT History: Reports: Other (See Below) Other HEENT History: deviated septum Cardiovascular History: Reports: Hypertension Gastrointestinal History: Reports: None Other Gastrointestinal History: cancer pancreas and liver Genitourinary History: Reports: Renal Calculus Musculoskeletal History: Reports: Osteoarthritis Neurological History: Reports: Concussion Other Neuro History: TBI Psychiatric History: Reports: None Hematologic History: Reports: Blood Transfusion(s) Immunologic History: Reports: Other (See Below) Other Immunologic History: Pancreatic CA with mets. chemo treatment on hold Oncologic (Cancer) History: Reports: Liver, Metastatic, Pancreatic Other Oncologic History: small bowel Dermatologic History: Reports: Other (See Below) Other Dermatologic History: rash can occur from fentanyl patches - Infectious Disease History Infectious Disease History: Reports: Chicken Pox, MRSA - Past Surgical History HEENT Surgical History: Reports: Other (See Below) Other HEENT Surgeries/Procedures: metal taken out of eye Cardiovascular Surgical History: Reports: None Other GI Surgeries/Procedures: EXPLORATORY LAP 40 YEARS AGO, SPLENECTOMY AT THAT TIME ALSO. keri shunt Male Surgical History: Reports: None Neurological Surgical History: Reports: Spinal Fusion Musculoskeletal Surgical History: Reports: Other (See Below) Other Musculoskeletal Surgeries/Procedures:: RODS IN LOW BACK AND HARDWARE IN RIGHT ANKLE Social & Family History - Family History Family Medical History: Noncontributory - Tobacco Use Smoking Status *Q: Never Smoker - Caffeine Use Caffeine Use: Reports: None - Recreational Drug Use Recreational Drug Use: No - Living Situation & Occupation Living situation: Reports: , with Family Occupation: Disabled ED ROS GENERAL - Review of Systems Review Of Systems: See Below Constitutional: Denies: Fever, Chills Respiratory: Denies: Shortness of Breath GI/Abdominal: Reports: Abdominal Pain (Intermittent abdominal pain from ascites and distention) Skin: Reports: Pallor ED EXAM, SKIN/RASH Exam: See Below Exam Limited By: No Limitations General Appearance: Alert, No Apparent Distress Respiratory/Chest: No Respiratory Distress GI/Abdominal: Distended, Other (Left transverse incision has a small amount of serous leakage from the wound) Course - Vital Signs Last Recorded V/S: Last Vital Signs Temp 96.0 F 08/20/18 08:25 Pulse 94 08/20/18 08:25 Resp 18 08/20/18 08:25 BP 139/97 H 08/20/18 08:25 Pulse Ox 100 08/20/18 08:25 - Orders/Labs/Meds Meds: Medications Discontinued Medications Generic Name Dose Route Start Last Admin Trade Name Jennifer PRN Reason Stop Dose Admin Lidocaine HCl 5 ml 08/20/18 08:19 08/20/18 08:28 Xylocaine-Mpf 1% INJECT 08/20/18 08:20 5 ml ONETIME ONE Administration - Re-Assessments/Exams Free Text/Narrative Re-Assessment/Exam: 08/20/18 08:28 Dr. Staley evaluated the patient and plans on 1-2 sutures strengthen the incision. 08/20/18 08:47 Incision was repaired by Dr. Staley. Patient was discharged with follow-up instructions per Dr. Staley. He will continue his regular medications. Departure - Departure Time of Disposition: 09:19 Disposition: Home, Self-Care 01 Clinical Impression: Abdominal wound dehiscence Qualifiers: Encounter type: initial encounter Qualified Code(s): T81.30XA - Disruption of wound, unspecified, initial encounter - Discharge Information Instructions: Wound Care, Adult Referrals: Hema Mcnally MD [Primary Care Provider] - Forms: ED Department Discharge Care Plan Goals: Continue your current medications, follow up with Dr. Staley as scheduled and return sooner if you develop problems or concerns.
--- NOTE | 2018-08-22 13:06 | OR ---
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 He had a previous incision on the left subcostal area, that has been healed, but now developed potential leak this morning, and presents for treatment of that. There are no signs of infection. After evaluation, the area was prepped and draped, anesthetized with 1% lidocaine and initial a running locked stitch over the area was accomplished then a secondary [id number] stitch (over the pin hole) was placed and it appeared to have just stopped the oozing, and he will be discharged home. The patient is scheduled for followup after a CT scan this coming Wednesday. Alex Staley MD /[id number]
== END 2018-08-20 09:18 | disposition home or self-care (01) ==
LOC: JP.ED 08:00
DX: T81.30XA Disruption of wound, unspecified, initial encounter (principal); I10 Essential (primary) hypertension; Z91.09 Other allergy status, other than to drugs and biological substances; Z88.1 Allergy status to other antibiotic agents; Z79.899 Other long term (current) drug therapy
CPT/HCPCS: 12020; 99283-25; J2001

== ENCOUNTER 2018-08-26 10:42 | Emergency (ER) | payer MEDICARE ==
[2018-08-26 10:55] VITALS: BP 152/103
--- NOTE | 2018-08-26 11:23 | EDM.PDOC ---
ED HPI GENERAL MEDICAL PROBLEM - General Chief Complaint: General Stated Complaint: SENT OVER FROM RADIOLOGY Time Seen by Provider: 08/26/18 11:00 Source of Information: Reports: Patient History Limitations: Reports: No Limitations - History of Present Illness INITIAL COMMENTS - FREE TEXT/NARRATIVE: 53-year-old male with metastatic cancer, ascites and recurring paracentesis had a CT scan this morning and developed lower abdominal cramping. He was sent over to the emergency room for evaluation, however the cramping seems to have quieted down. No emesis. He is scheduled for paracentesis tomorrow morning. Onset: Sudden Duration: Hour(s): (Within the last hour) Right Lower Abdomen Pain Score (Numeric/FACES): 9 - Related Data Allergies Allergy/AdvReac Type Severity Reaction Status Date / Time adhesive Allergy Intermediate Rash Verified 08/26/18 11:07 ciprofloxacin [From Cipro] Allergy Rash Verified 08/26/18 11:07 levofloxacin [From Levaquin] Allergy Rash Verified 08/26/18 11:07 oxycodone HCl [From Tylox] Allergy Rash Verified 08/26/18 11:07 Home Meds: Home Meds Atenolol [Tenormin] 50 mg PO DAILY 02/04/13 [History] Cyclobenzaprine HCl [Flexeril] 20 mg PO BEDTIME 02/04/13 [History] Gabapentin [Neurontin] 300 mg PO BID 01/24/18 [History] Melatonin 20 mg PO BEDTIME 03/06/18 [History] Hyoscyamine [Hyomax-SL] 0.125 mg SL Q4H PRN #20 tab.sl 03/08/18 [Rx] fentaNYL [Duragesic] 12 mcg TD Q72H #5 patch 03/15/18 [Rx] Diphenhyd/Lidocaine/Nystatin [First-Bxn Mouthwash] 5 ml SSWAL QID #240 ml [Rx] Ondansetron [Zofran ODT] 4 mg PO Q8HR PRN 06/06/18 [History] fentaNYL [Duragesic] 25 mcg TRDERM Q72H 06/08/18 [History] HYDROmorphone HCl [Hydromorphone ER] 8 mg PO Q3H PRN 07/11/18 [History] Diphenoxylate HCl/Atropine [Diphenoxylate-Atrop 2.5-0.025] 1 each PO QID PRN [History] L Acidophil/B Lactis/B Longum [Florajen3] 460 mg PO DAILY 07/14/18 [History] Max3 2 cap PO BID 07/14/18 [History] Mv-Mn/Folic Acid/Lutein/Hro973 [Mens Multivit High Potency Tab] 1 each PO DAILY 07/14/18 [History] Sennosides/Docusate Sodium [Docusate Sodium-Senna Tablet] 1 each PO DAILY [History] Amylase/Lipase/Protease [Creon DR 6,000 Unit] 2 cap PO TID 07/27/18 [History] Past Medical History HEENT History: Reports: Other (See Below) Other HEENT History: deviated septum Cardiovascular History: Reports: Hypertension Gastrointestinal History: Reports: Other (See Below) Other Gastrointestinal History: cancer pancreas and liver Genitourinary History: Reports: Renal Calculus Musculoskeletal History: Reports: Osteoarthritis Neurological History: Reports: Concussion Other Neuro History: TBI Psychiatric History: Reports: None Hematologic History: Reports: Blood Transfusion(s) Immunologic History: Reports: Other (See Below) Other Immunologic History: Pancreatic CA with mets. chemo treatment on hold Oncologic (Cancer) History: Reports: Liver, Metastatic, Pancreatic Other Oncologic History: small bowel Dermatologic History: Reports: Other (See Below) Other Dermatologic History: rash can occur from fentanyl patches - Infectious Disease History Infectious Disease History: Reports: Chicken Pox, MRSA - Past Surgical History HEENT Surgical History: Reports: Other (See Below) Other HEENT Surgeries/Procedures: metal taken out of eye Cardiovascular Surgical History: Reports: None Other GI Surgeries/Procedures: EXPLORATORY LAP 40 YEARS AGO, SPLENECTOMY AT THAT TIME ALSO. keri shunt Male Surgical History: Reports: None Neurological Surgical History: Reports: Spinal Fusion Musculoskeletal Surgical History: Reports: Other (See Below) Other Musculoskeletal Surgeries/Procedures:: RODS IN LOW BACK AND HARDWARE IN RIGHT ANKLE Oncologic Surgical History: Reports: None Social & Family History - Family History Family Medical History: Noncontributory - Tobacco Use Smoking Status *Q: Never Smoker Second Hand Smoke Exposure: No - Caffeine Use Caffeine Use: Reports: Coffee - Recreational Drug Use Recreational Drug Use: No - Living Situation & Occupation Living situation: Reports: , with Family Occupation: Disabled ED [facility] GENERAL - Review of Systems Review Of Systems: See Below Constitutional: Denies: Fever, Chills Respiratory: Reports: Shortness of Breath (Has difficulty taking a full breath) Cardiovascular: Denies: Chest Pain GI/Abdominal: Reports: Abdominal Pain, Distension : Reports: No Symptoms Neurological: Reports: No Symptoms ED EXAM, GENERAL - Physical Exam Exam: See Below Exam Limited By: No Limitations General Appearance: Alert, No Apparent Distress Eye Exam: Bilateral Eye: EOMI Head: Atraumatic Respiratory/Chest: No Respiratory Distress Cardiovascular: Regular Rate, Rhythm GI/Abdominal: Distended, Other (Moderate tenderness diffusely to palpation, slightly worse on the lower abdomen) Course - Vital Signs Last Recorded V/S: Last Vital Signs Temp 95 F L 08/26/18 11:04 Pulse 62 08/26/18 11:04 Resp 18 08/26/18 11:04 BP 152/103 H 08/26/18 11:04 Pulse Ox 100 08/26/18 11:04 - Re-Assessments/Exams Free Text/Narrative Re-Assessment/Exam: 08/26/18 12:[address] scan report was discussed with the patient, he'll be rechecked tomorrow by surgery for a paracentesis. Departure - Departure Time of Disposition: 11:35 Disposition: Home, Self-Care 01 Clinical Impression: Metastatic neoplastic disease Abdominal pain Qualifiers: Abdominal location: lower abdomen, unspecified Qualified Code(s): R10.30 - Lower abdominal pain, unspecified - Discharge Information Instructions: Abdominal Pain, Adult, [id number] Referrals: Hema Mcnally MD [Primary Care Provider] - Forms: ED Department Discharge Care Plan Goals: Continue your current medications and return tomorrow for your scheduled procedure. Return sooner if pain is uncontrolled.
== END 2018-08-26 11:55 | disposition home or self-care (01) ==
LOC: JP.ED 10:42
DX: C78.89 Secondary malignant neoplasm of other digestive organs (principal); C22.8 Malignant neoplasm of liver, primary, unspecified as to type; I10 Essential (primary) hypertension; Z88.1 Allergy status to other antibiotic agents; Z88.8 Allergy status to other drugs, medicaments and biological substances; Z79.899 Other long term (current) drug therapy; R10.84 Generalized abdominal pain; K86.9 Disease of pancreas, unspecified; R18.8 Other ascites; I82.890 Acute embolism and thrombosis of other specified veins; J90 Pleural effusion, not elsewhere classified; C78.6 Secondary malignant neoplasm of retroperitoneum and peritoneum
CPT/HCPCS: 74177; 99282; 99283; J7030; Q9967

== ENCOUNTER 2018-08-29 08:51 | Emergency (ER) | payer MEDICARE ==
[2018-08-29 09:05] VITALS: BP 160/97
--- NOTE | 2018-08-29 09:36 | EDM.PDOC ---
ED HPI GENERAL MEDICAL PROBLEM - General Chief Complaint: General Stated Complaint: WEAKNESS Time Seen by Provider: 08/29/18 09:13 Source of Information: Reports: Patient, Family, Old Records, RN Notes Reviewed History Limitations: Reports: No Limitations - History of Present Illness INITIAL COMMENTS - FREE TEXT/NARRATIVE: 53-year-old gentleman presents to the emergency department today complaint of weakness, he has a known history of metastatic prostate cancer has been off chemotherapy for several months because of the ongoing weakness. CT scan intervals between beginning of July to the end of July show increased size in the pancreatic mass as well as metastases in the liver. His biggest difficulty is not being able to eat continued weakness progression of the disease. He's had difficulty keeping his Zofran from causing emesis. No fevers - Related Data Allergies Allergy/AdvReac Type Severity Reaction Status Date / Time adhesive Allergy Intermediate Rash Verified 08/26/18 11:07 ciprofloxacin [From Cipro] Allergy Rash Verified 08/26/18 11:07 levofloxacin [From Levaquin] Allergy Rash Verified 08/26/18 11:07 oxycodone HCl [From Tylox] Allergy Rash Verified 08/26/18 11:07 Home Meds: Home Meds Atenolol [Tenormin] 50 mg PO DAILY 02/04/13 [History] Cyclobenzaprine HCl [Flexeril] 20 mg PO BEDTIME 02/04/13 [History] Gabapentin [Neurontin] 300 mg PO BID 01/24/18 [History] Melatonin 20 mg PO BEDTIME 03/06/18 [History] Hyoscyamine [Hyomax-SL] 0.125 mg SL Q4H PRN #20 tab.sl 03/08/18 [Rx] fentaNYL [Duragesic] 12 mcg TD Q72H #5 patch 03/15/18 [Rx] Diphenhyd/Lidocaine/Nystatin [First-Bxn Mouthwash] 5 ml SSWAL QID #240 ml [Rx] Ondansetron [Zofran ODT] 4 mg PO Q8HR PRN 06/06/18 [History] fentaNYL [Duragesic] 25 mcg TRDERM Q72H 06/08/18 [History] HYDROmorphone HCl [Hydromorphone ER] 8 mg PO Q3H PRN 07/11/18 [History] Diphenoxylate HCl/Atropine [Diphenoxylate-Atrop 2.5-0.025] 1 each PO QID PRN [History] L Acidophil/B Lactis/B Longum [Florajen3] 460 mg PO DAILY 07/14/18 [History] Max3 2 cap PO BID 07/14/18 [History] Mv-Mn/Folic Acid/Lutein/Zpf279 [Mens Multivit High Potency Tab] 1 each PO DAILY 07/14/18 [History] Sennosides/Docusate Sodium [Docusate Sodium-Senna Tablet] 1 each PO DAILY [History] Amylase/Lipase/Protease [Creramón DR 6,000 Unit] 2 cap PO TID 07/27/18 [History] Past Medical History HEENT History: Reports: Other (See Below) Other HEENT History: deviated septum Cardiovascular History: Reports: Hypertension Gastrointestinal History: Reports: Other (See Below) Other Gastrointestinal History: cancer pancreas and liver Genitourinary History: Reports: Renal Calculus Musculoskeletal History: Reports: Osteoarthritis Neurological History: Reports: Concussion Other Neuro History: TBI Psychiatric History: Reports: None Hematologic History: Reports: Blood Transfusion(s) Immunologic History: Reports: Other (See Below) Other Immunologic History: Pancreatic CA with mets. chemo treatment on hold Oncologic (Cancer) History: Reports: Liver, Metastatic, Pancreatic Other Oncologic History: small bowel Dermatologic History: Reports: Other (See Below) Other Dermatologic History: rash can occur from fentanyl patches - Infectious Disease History Infectious Disease History: Reports: Chicken Pox, MRSA - Past Surgical History HEENT Surgical History: Reports: Other (See Below) Other HEENT Surgeries/Procedures: metal taken out of eye Other GI Surgeries/Procedures: EXPLORATORY LAP 40 YEARS AGO, SPLENECTOMY AT THAT TIME ALSO. keri shunt Neurological Surgical History: Reports: Spinal Fusion Musculoskeletal Surgical History: Reports: Other (See Below) Other Musculoskeletal Surgeries/Procedures:: RODS IN LOW BACK AND HARDWARE IN RIGHT ANKLE Social & Family History - Family History Family Medical History: Noncontributory - Tobacco Use Smoking Status *Q: Unknown Ever Smoked - Caffeine Use Caffeine Use: Reports: Coffee - Living Situation & Occupation Living situation: Reports: , with Family Occupation: Disabled ED ROS GENERAL - Review of Systems Review Of Systems: See Below Constitutional: Reports: Weakness, Fatigue, Decreased Appetite, Weight Loss Respiratory: Reports: No Symptoms Cardiovascular: Reports: No Symptoms GI/Abdominal: Reports: Nausea, Vomiting ED EXAM, GENERAL - Physical Exam Exam: See Below Exam Limited By: No Limitations General Appearance: Alert, WD/WN, No Apparent Distress Respiratory/Chest: No Respiratory Distress Course - Vital Signs Last Recorded V/S: Last Vital Signs Temp 97.2 F 08/29/18 09:27 Pulse 53 L 08/29/18 09:27 Resp 11 L 08/29/18 09:27 BP 160/97 H 08/29/18 09:27 Pulse Ox 99 08/29/18 09:27 - Orders/Labs/Meds Orders: Active Orders 24 hr Category Date Time Status Peripheral IV Care [RC] . DIRECTED Care 08/29/18 09:30 Active Sodium Chloride 0.9% [Saline Flush] Med 08/29/18 09:29 Active 10 ml FLUSH ASDIRECTED PRN Peripheral IV Insertion Adult [OM.PC] Urgent Oth 08/29/18 09:29 Ordered Medication Orders Sodium Chloride (Saline Flush) 10 ml FLUSH ASDIRECTED PRN PRN Reason: Keep Vein Open Last Admin: 08/29/18 09:48 Dose: 10 ml Meds: Medications Generic Name Dose Route Start Last Admin Trade Name Freq PRN Reason Stop Dose Admin Sodium Chloride 10 ml 08/29/18 09:29 08/29/18 09:48 Saline Flush FLUSH 10 ml ASDIRECTED PRN Administration Keep Vein Open Discontinued Medications Generic Name Dose Route Start Last Admin Trade Name Freq PRN Reason Stop Dose Admin Lorazepam 1 mg 08/29/18 09:29 08/29/18 09:46 Ativan IVPUSH 08/29/18 09:30 1 mg ONETIME ONE Administration Metoclopramide HCl 5 mg 08/29/18 09:29 08/29/18 09:46 Reglan IVPUSH 08/29/18 09:30 5 mg ONETIME ONE Administration Departure - Departure Time of Disposition: 13:12 Disposition: Home, Self-Care 01 Condition: Poor Clinical Impression: Pancreatic carcinoma metastatic to liver - Discharge Information Referrals: Hema Mcnally MD [Primary Care Provider] - Forms: ED Department Discharge Additional Instructions: Please return to the emergency department or call with any concerns or questions - My Orders Last 24 Hours: My Active Orders 08/29/18 09:29 Sodium Chloride 0.9% [Saline Flush] 10 ml FLUSH ASDIRECTED PRN Peripheral IV Insertion Adult [OM.PC] Urgent 08/29/18 09:30 Peripheral IV Care [RC] . DIRECTED - Assessment/Plan Last 24 Hours: My Active Orders 08/29/18 09:29 Sodium Chloride 0.9% [Saline Flush] 10 ml FLUSH ASDIRECTED PRN Peripheral IV Insertion Adult [OM.PC] Urgent 08/29/18 09:30 Peripheral IV Care [RC] . DIRECTED Plan: Assessment Acuity = chronic Site and laterality = metastatic pancreatic cancer Etiology = unknown Manifestations = weight loss, weakness Location of injury = Home Lab values = none Plan He had some relief with combination of Ativan and Reglan, I did spent time counseling the family on the severity of the disease was able to sit down with them and go through the recent CAT scans that her 30 days apart which show aggressive progression of the disease they did have a consult with hospice while in the emergency department they are planning to go home and have a family meeting about further course of action This note was dictated using [employer]ikan[employer] voice recognition software please call with any questions on syntax or grammar.
[2018-08-29] MEDS: LORazepam 2 MG/ML SDV IVPUSH ONE (09:46)
[2018-08-29] MEDS: Metoclopramide 10 MG/2 ML SDV IVPUSH ONE (09:46)
[2018-08-29] MEDS: Sodium Chloride 0.9% 10 ML Syringe FLUSH PRN (09:48)
== END 2018-08-29 13:30 | disposition home or self-care (01) ==
LOC: JP.ED 08:51
DX: C25.9 Malignant neoplasm of pancreas, unspecified (principal); C78.7 Secondary malignant neoplasm of liver and intrahepatic bile duct; I10 Essential (primary) hypertension; Z79.899 Other long term (current) drug therapy; Z88.1 Allergy status to other antibiotic agents; Z91.048 Other nonmedicinal substance allergy status
CPT/HCPCS: 96374; 96375; 99284-25; J1642; J2060; J2765